=== PATIENT | male | born 1935 | race Caucasian/White ===

== ENCOUNTER → 2016-05-20 | Outpatient (CLI) | payer MEDICARE, OTHER ==
--- NOTE | 2016-05-20 15:57 | US ---
EXAMINATION TYPE: US carotid duplex BILAT DATE OF EXAM: 05/20/2016 2:42 PM COMPARISON: NONE CLINICAL HISTORY: I10 Essential Hypertension. left bruit EXAM MEASUREMENTS: RIGHT: Peak Systolic Velocity (PSV) cm/sec ----- Right CCA: 58.1 ----- Right ICA: 100.5 ----- Right ECA: 62.7 ICA/CCA ratio: 1.7 RIGHT: End Diastole cm/sec ----- Right CCA: 14.5 ----- Right ICA: 29.3 ----- Right ECA: 0 LEFT: Peak Systolic Velocity (PSV) cm/sec ----- Left CCA: 61.7 ----- Left ICA: 94.1 ----- Left ECA: 66.7 ICA/CCA ratio: 1.5 LEFT: End Diastole cm/sec ----- Left CCA: 16.3 ----- Left ICA: 22.8 ----- Left ECA: 4.0 VERTEBRALS (direction of flow): Right Vertebral: Antegrade Left Vertebral: Antegrade Moderate atherosclerotic changes in bilateral bulbs No hemodynamic stenosis IMPRESSION: Moderate atheromatous change without hemodynamically significant stenosis. Criteria for Assigning % of Stenosis / Diameter reduction (Estimation based on the indirect measurements of the internal carotid artery velocities (ICA PSV). 1. Normal (no stenosis)=ICA PSV < 125 cm/s: ratio < 2.0: ICA EDV<40 cm/s. 2. Less than 50% stenosis=ICA PSV < 125 cm/s: ratio < 2.0: ICA EDV<40 cm/s. 3. 50 to 69% stenosis=ICA PSV of 125 to 230 cm/s: ration 2.0 ? 4.0: ICA EDV 40-100 cm/s. 4. Greater than 70% stenosis to near occlusion= ICA PSV > 230 cm/s: ratio > 4.0: ICA EDV > 100 cm/s. 5. Near occlusion= ICA PSV velocities may be low or undetectable: variable ratio and ICA EDV. 6. Total occlusion=unable to detect flow.
== END | disposition home or self-care (01) ==
LOC: RADUSWWP 13:50
PROVIDERS: ATTEND Family Medicine
DX: I65.23 Occlusion and stenosis of bilateral carotid arteries (principal); I10 Essential (primary) hypertension
CPT/HCPCS: 93880

== ENCOUNTER 2016-07-26 21:13 | Observation (INO) | payer MEDICARE ==
[2016-07-26 22:07] LABS: Basophils # (A) 0.1 k/uL (0-0.2); Basophils % (A) 1 %; CHCM 33.7; Eosinophils # (A) 0.3 k/uL (0-0.7); Eosinophils % (A) 3 %; HCT 40.8 % (39.0-53.0); HDW 2.52; HGB 13.6 gm/dL (13.0-17.5); Luc # (Auto) 0.25; Luc % (Auto) 3; Lymphocytes % (A) 27 %; MCH 30.9 pg (25.0-35.0); MCHC 33.5 g/dL (31.0-37.0); MCV 92.4 fL (80.0-100.0); Mean Platelet Volume 8.3; Monocytes # (A) 0.6 k/uL (0-1.0); Monocytes % (A) 7 %; Neutrophils # (A) 4.5 k/uL (1.3-7.7); Neutrophils % (A) 59 %; RBC 4.41 m/uL (4.30-5.90); WBC 7.7 k/uL (3.8-10.6); WBC (Perox) 7.39
[2016-07-26 22:16] LABS: Prothrombin Time 10.5 sec (9.0-12.0)
[2016-07-26 22:17] LABS: Partial Thromboplastin Time 28.6 sec (22.0-30.0)
--- NOTE | 2016-07-26 22:19 | XR ---
EXAM: XR Chest, 2 Views CLINICAL HISTORY: Chest Pain TECHNIQUE: Frontal and lateral views of the chest. COMPARISON: No relevant prior studies available. FINDINGS: Lungs: Unremarkable. No consolidation. Pleural space: Unremarkable. No pneumothorax. Heart: Unremarkable. No cardiomegaly. Mediastinum: Postoperative mediastinum. Bones/joints: No acute osseous abnormality. IMPRESSION: No acute cardiopulmonary process.
[2016-07-26 22:21] LABS: ALT 23 U/L (21-72); AST 22 U/L (17-59); Alkaline Phosphatase 51 U/L (38-126); Anion Gap 11 mmol/L; Blood Urea Nitrogen 16 mg/dL (9-20); Calcium 9.5 mg/dL (8.4-10.2); Carbon Dioxide 24 mmol/L (22-30); Chloride 103 mmol/L (98-107); Glucose 102 mg/dL (74-99); Non-African American GFR(MDRD) >60 (>60 ml/min/1.73 sqM); Potassium 4.4 mmol/L (3.5-5.1); Sodium 138 mmol/L (137-145); Total Bilirubin 0.3 mg/dL (0.2-1.3); Total Protein 7.7 g/dL (6.3-8.2)
[2016-07-26 22:44] LABS: Creatine Kinase 69 U/L (55-170)
[2016-07-26 22:57] LABS: Creatine Kinase MB 1.3 ng/mL (0.0-2.4); Troponin I <0.012 ng/mL (0.000-0.034)
[2016-07-26] MEDS ORDERED: HEPARIN SODIUM,PORCINE/D5W PMX 25,000 UNIT in DEXTROSE/WATER 1 500ML.BAG IV SCH (23:45)
--- NOTE | 2016-07-26 23:52 | ED ---
Chest Pain HPI - General Chief Complaint: Chest Pain Stated Complaint: chest pain Time Seen by Provider: 07/26/16 21:36 Source: patient, family, RN notes reviewed Mode of arrival: ambulatory Limitations: no limitations - History of Present Illness Initial Comments: This is an 80-year-old male history of heart disease and states she is an episode chest pain today that lasted longer than usual and was more severe than usual. He states he has some radiation to his neck down to his chest and back up to his neck. He felt like indigestion-type discomfort 78/10 severity. He states that currently as he is pain-free but last more than 2 hours today which is out of the ordinary. He denied any fevers chills nausea vomiting. He also notes however that recently he's had episodes of fatigue after minimal stress of exercise. This is not happened before. He has no other complaints at this time no fevers chills sweats he does note however this blood pressure is line in usual also. He states he's noticed no change in his heart rate in earlier is between the 40s and 50s. He has noticed no palpitations. MD Complaint: chest pain, other - Related Data Home Medications Medication Instructions Recorded Confirmed Clopidogrel [Plavix] 75 mg PO DAILY 07/26/16 07/26/16 Metoprolol Tartrate [Lopressor] 25 mg PO DAILY 07/26/16 07/26/16 [place]-3 Fatty Acids/Fish Oil [Fish 1 cap PO DAILY 07/26/16 07/26/16 Oil 1,000 mg Capsule] Ranitidine HCl [Zantac] 150 mg PO BID 07/26/16 07/26/16 Red Yeast Rice 600 mg PO DAILY 07/26/16 07/26/16 Ubidecarenone [Co Q-10] 100 mg PO DAILY 07/26/16 07/26/16 Allergies Allergy/AdvReac Type Severity Reaction Status Date / Time Penicillins Allergy Rash/Hives Verified 07/26/16 21:58 Sulfa (Sulfonamide Allergy Rash/Hives Verified 07/26/16 21:58 Antibiotics) tetanus and diphtheria Allergy Unknown Verified 07/26/16 21:59 toxoids Review of Systems ROS Statement: Those systems with pertinent positive or pertinent negative responses have been documented in the HPI. ROS Other: All systems not noted in ROS Statement are negative. EKG Findings - EKG Results: EKG: interpreted by RUPERTO, sinus rhythm (Sinus bradycardia rate of 50. Interval 210 QRS of 80 daily since QTC of 466/[address] configuration evidence of first-degree AV block.) Past Medical History Past Medical History: GERD/Reflux, Hyperlipidemia, Hypertension History of Any Multi-Drug Resistant Organisms: None Reported Past Surgical History: Coronary Bypass/CABG, Heart Catheterization With Stent Additional Past Surgical History / Comment(s): Angioplasty Past Psychological History: No Psychological Hx Reported Smoking Status: Former smoker Past Alcohol Use History: Occasional Past Drug Use History: None Reported General Exam - General Exam Comments Initial Comments: This is a well-developed well-nourished awake alert oriented 3 male Limitations: no limitations General appearance: alert, in no apparent distress Head exam: Present: atraumatic, normocephalic, normal inspection Eye exam: Present: normal appearance, PERRL, EOMI. Absent: scleral icterus, conjunctival injection, periorbital swelling ENT exam: Present: normal exam, mucous membranes moist Neck exam: Present: normal inspection. Absent: tenderness, meningismus, lymphadenopathy Respiratory exam: Present: normal lung sounds bilaterally. Absent: respiratory distress, wheezes, rales, rhonchi, stridor Cardiovascular Exam: Present: normal rhythm, bradycardia, normal heart sounds. Absent: systolic murmur, diastolic murmur, rubs, gallop, clicks GI/Abdominal exam: Present: soft, normal bowel sounds. Absent: distended, tenderness, guarding, rebound, rigid Extremities exam: Present: normal inspection, full ROM, normal capillary refill. Absent: tenderness, pedal edema, joint swelling, calf tenderness Back exam: Present: normal inspection Neurological exam: Present: alert, oriented X3, CN II-XII intact Psychiatric exam: Present: normal affect, normal mood Skin exam: Present: warm, dry, intact, normal color. Absent: rash Course Vital Signs 07/26/16 07/26/16 07/26/16 21:19 21:35 22:35 Temperature 97.2 F L Pulse Rate 55 L 55 L 50 L Respiratory 18 20 20 Rate Blood Pressure 192/84 215/91 177/70 O2 Sat by Pulse 98 96 98 Oximetry 07/26/16 23:00 Temperature Pulse Rate 55 L Respiratory 20 Rate Blood Pressure 179/77 O2 Sat by Pulse 98 Oximetry - Reevaluation(s) Reevaluation #1: 07/26/16 23:54 Reevaluation the patient finds he has no recurrent pain. Chest Pain MDM - MDM Review the patient's x-ray imaging shows no evidence of any acute findings. I did review the lab work and findings of the patient has . Patient remains pain-free however his symptoms sound suspicious for unstable angina. Patient will be admitted for evaluation by cardiology did discuss the case with the hospitalist. Disposition Clinical Impression: Unstable angina pectoris, Atypical chest pain Disposition: ADMITTED IP TO THIS [facility] Condition: Stable Referrals: None,Stated [Primary Care Provider] - 1-2 days
[2016-07-26] MEDS ORDERED: NITROGLYCERIN SL TABS 0.4 MG TAB SUBLINGUAL PRN (23:55)
[2016-07-26] MEDS ORDERED: HEPARIN SODIUM,PORCINE 5,000 UNIT/ML 1 ML VIAL IV ONE (23:55)
[2016-07-27] MEDS: SODIUM CHLORIDE 0.9% 1,000 ML IV SCH (00:12)
[2016-07-27] MEDS: NITROGLYCERIN OINT 1 INCH/GM PACKET TOPICAL SCH ×4 (00:13→16:08)
[2016-07-27 01:05] VITALS: BMI 27.3
[2016-07-27 04:31] LABS: Creatine Kinase 53 U/L (55-170)
[2016-07-27 04:42] LABS: Creatine Kinase MB 1.1 ng/mL (0.0-2.4); Troponin I <0.012 ng/mL (0.000-0.034)
[2016-07-27 06:53] LABS: Cholesterol 173 mg/dL (<200); HDL Cholesterol 52 mg/dL (40-60); Triglycerides 137 mg/dL (<150)
[2016-07-27] MEDS ORDERED: NITROGLYCERIN SL TABS 0.4 MG TAB SUBLINGUAL PRN (07:48)
[2016-07-27] MEDS ORDERED: ALPRAZolam 0.5 MG TAB PO PRN (07:48)
[2016-07-27] MEDS ORDERED: SODIUM CHLORIDE 0.9% 1,000 ML in EMPTY BAG 1 BAG IV ONE (07:48)
[2016-07-27] MEDS ORDERED: ALPRAZolam 0.25 MG TAB PO PRN (07:48)
[2016-07-27] MEDS ORDERED: ASPIRIN 325 MG TAB PO STA (07:50)
[2016-07-27] MEDS ORDERED: ATORVASTATIN 80 MG TAB PO STA (07:51)
[2016-07-27] MEDS: METOPROLOL TARTRATE 25 MG TAB PO SCH (08:10)
[2016-07-27] MEDS: CLOPIDOGREL 75 MG TAB PO SCH (08:10)
[2016-07-27] MEDS: FAMOTIDINE 20 MG TAB PO SCH ×2 (08:10→21:56)
--- NOTE | 2016-07-27 08:12 | CONS ---
DATE OF CONSULTATION: CHIEF COMPLAINT: Chest pain. HISTORY OF PRESENT ILLNESS: This is an 80-year-old gentleman with history of coronary artery disease, status post CABG, status post angioplasty in 2012, and hypertension who came to hospital complaining of chest pain. He describes it as moderate intensity, pressure-like discomfort initially in the precordial area that radiated to the right side of his neck. Subsequently had pain that radiated to his back and to the left side of the neck. The patient has been having progressively worsening exertional fatigue over the last 2 weeks. He came to hospital and has become symptom-free. Two sets of cardiac enzymes have been negative. EKG does not reveal ischemic changes. Given the known coronary artery disease and symptoms of unstable angina. I advised the patient to undergo cardiac catheterization with a view to performing angioplasty. He had been explained of risks, benefits, and alternatives, understood and accepted. Past medical history is significant for CAD, status post CABG, status post angioplasty. Current medications include: 1. Lopressor 25 daily. 2. Plavix 75 mg daily. 3. Co-Q-10. 4. ( ). 5. Zantac. 6. Fish oil. ALLERGIC TO PENICILLIN, SULFA, AND TETANUS. FAMILY HISTORY: Negative for premature coronary artery disease. SOCIAL HISTORY: Negative for current smoking, ETOH abuse or drug abuse. REVIEW OF SYSTEMS: HEENT: Unremarkable. CARDIAC: As described above. RESPIRATORY: Negative. GI: Negative. GENITOURINARY: Negative. SKIN: Negative. MUSCULOSKELETAL: Significant pertinent for arthritis. PSYCHOSOCIAL: Negative. DERM: Negative. CONSTITUTIONAL: Negative. Oncological: Negative. The rest of the system review is not relevant. On exam he is comfortable at rest. Vital signs are stable. There is no jugular venous distention. Carotid upstroke is normal. There is no bruit. Chest exam reveals and good air entry bilaterally. Heart exam reveals first and second heart sounds. An ejection systolic murmur in the aortic area. ABDOMEN: Soft, nontender. Exam of the extremities did not reveal any edema. Peripheral pulses are felt. Cardiac enzymes have been negative. EKG does not reveal ischemic changes. ASSESSMENT: 1. Unstable angina. 2. Aortic stenosis. 3. Coronary artery disease status post coronary artery bypass graft. PLAN: Patient will undergo cardiac catheterization by Dr. Janice Rhoades today and if this is negative he will be discharged home. If not, he will undergo angioplasty.
[2016-07-27] MEDS ORDERED: ASPIRIN 325 MG TAB PO SCH (09:00)
[2016-07-27] MEDS ORDERED: NON-FORMULARY DRUG (Ubidecarenone [Co Q-10] 100 MG) PO SCH (09:00)
[2016-07-27] MEDS ORDERED: NON-FORMULARY DRUG (Red Yeast Rice [Red Yeast Rice] 600 MG) PO SCH (09:00)
[2016-07-27] MEDS ORDERED: NON-FORMULARY DRUG (Omega-3 Fatty Acids/Fish Oil [Fish Oil 1,000 Mg Capsule] 1 CAP) PO SCH (09:00)
[2016-07-27] MEDS ORDERED: MIDAZOLAM 2 MG/2 ML VIAL IVP ONE (09:17)
[2016-07-27] MEDS ORDERED: LIDOCAINE 2% INJ 20 MG/ML SQ ONE (09:22)
[2016-07-27] MEDS ORDERED: IV FLUID CONTINUATION 250 ML IV ONE (09:25)
[2016-07-27] MEDS: HYDROmorphone 2 MG/ML 1 ML SYRINGE IVP ONE ×3 (09:36→10:47)
[2016-07-27] MEDS ORDERED: BIVALIRUDIN BOLUS 250 MG/50 ML IV ONE (09:55)
[2016-07-27] MEDS ORDERED: BIVALIRUDIN 250 MG in SODIUM CHLORIDE 0.9% 35 ML IV ONE (09:55)
[2016-07-27] MEDS: NITROGLYCERIN 1000MCG/10ML SYRINGE INTRACORON ONE ×2 (10:19→10:38)
[2016-07-27] MEDS ORDERED: IOHEXOL 350 MG/ML 100 ML BOTTLE INJ ONE (10:41)
[2016-07-27] MEDS ORDERED: CLOPIDOGREL 75 MG TAB PO ONE (10:47)
[2016-07-27] MEDS ORDERED: MAG HYDROX/AL HYDROX/SIMETH 30 ML CUP PO PRN (10:57)
[2016-07-27] MEDS ORDERED: ZOLPIDEM 5 MG TAB PO PRN (10:57)
[2016-07-27] MEDS ORDERED: RX INFO: IV CONTRAST WAS GIVEN 1 EACH MISC MISCELLANE PRN (10:57)
--- NOTE | 2016-07-27 10:58 | ECHOF ---
Referral Reason:as MEASUREMENTS -------- HEIGHT: 152.4 cm WEIGHT: 105.2 kg BP: 119/56 RVIDd: 3.7 cm (< 3.3) IVSd: 1.3 cm (0.6 - 1.1) LVIDd: 5.1 cm (3.9 - 5.3) LVPWd: 1.1 cm (0.6 - 1.1) IVSs: 1.8 cm LVIDs: 3.9 cm LVPWs: 1.7 cm LA Diam: 4.2 cm (2.7 - 3.8) LAESV Index (A-L): 29.56 ml/m Ao Diam: 3.0 cm (2.0 - 3.7) AV Cusp: 0.8 cm (1.5 - 2.6) LA Diam: 5.0 cm (2.7 - 3.8) MV EXCURSION: 15.618 mm (> 18.000) MV EF SLOPE: 41 mm/s (70 - 150) EPSS: 0.8 cm AV maxP.16 mmHg AV meanP.92 mmHg RAP: 5.00 mmHg RVSP: 32.51 mmHg FINDINGS -------- Sinus rhythm. This was a technically adequate study. There is mild concentric left ventricular hypertrophy. Overall left ventricular systolic function is low-normal with, an EF between 50 - 55 %. The right ventricle is normal in size. LA is midly dilated 29-33ml/m2. The right atrial size is normal. Moderate aortic stenosis with peak/mean pressure gradient of 39.16mmHg / 22.92mmHg, the aortic valve area by continuity equation is 1.3cm. Mild mitral annular calcification present. Mild mitral regurgitation is present. Mild tricuspid regurgitation present. There is no evidence of pulmonary hypertension. The right ventricular systolic pressure, as measured by Doppler, is 32.51mmHg. Trace/mild (physiologic) pulmonic regurgitation. The aortic root size is normal. There is no pericardial effusion. CONCLUSIONS -------- 1. There is mild concentric left ventricular hypertrophy. 2. Trace/mild (physiologic) pulmonic regurgitation. 3. The aortic root size is normal. 4. There is no pericardial effusion. 5. Overall left ventricular systolic function is low-normal with, an EF between 50 - 55 %. 6. LA is midly dilated 29-33ml/m2. 7. Moderate aortic stenosis with peak/mean pressure gradient of 39.16mmHg / 22.92mmHg, the aortic valve area by continuity equation is 1.3cm. 8. Mild mitral annular calcification present. 9. Mild mitral regurgitation is present. 10. Mild tricuspid regurgitation present. 11. There is no evidence of pulmonary hypertension. 12. The right ventricular systolic pressure, as measured by Doppler, is 32.51mmHg. MEDICAL TECHNICIANS: Monika Salgado RDCS
[2016-07-27] MEDS ORDERED: SODIUM CHLORIDE 0.9% 1,000 ML IV SCH (11:00)
[2016-07-27 12:53] LABS: Creatine Kinase MB 0.8 ng/mL (0.0-2.4); Troponin I 0.028 ng/mL (0.000-0.034)
[2016-07-27 13:43] VITALS: RESP 18
[2016-07-28] MEDS: NITROGLYCERIN OINT 1 INCH/GM PACKET TOPICAL SCH ×3 (01:06→07:43)
[2016-07-28] MEDS: SODIUM CHLORIDE 0.9% 1,000 ML IV SCH ×2 (01:23→09:12)
--- NOTE | 2016-07-28 06:29 | HP ---
DATE OF ADMISSION: REASON FOR ADMISSION: Chest pain. HISTORY OF PRESENTING ILLNESS: This is an 80-year-old gentleman who has a history of CAD, underwent CABG in 1998; thereafter underwent cardiac catheterization in 2012 receiving PCI/PTCA. The patient states that he came into the hospital with complaint of chest pain. Patient states that he has epigastric pain; however, he usually notices relief with gulping some water down. Patient; however, noted to have some chest pain, midsternal in location radiating to his jaw and his back lasted for about 30 minutes, not associated with any diaphoresis. The patient denies having any alleviating or exacerbating factors. The pain was self-limiting; hence, came into the hospital for ongoing care. EKG did not reveal ST-T wave changes. The patient denies having any recent illnesses, headaches, blurry vision, nausea, vomiting, diarrhea, urinary urgency or frequency. REVIEW OF SYSTEMS: Fourteen-point review of system was done; none pertinent other than what was mentioned above. Home medications include: 1. Plavix. 2. Lopressor. 3. Fish oil. 4. Zantac. 5. Red yeast rice. 6. CoQ10. ALLERGIES: PENICILLIN, SULFA, TETANUS and DPT VACCINE. Past medical history includes CAD, GERD, dyslipidemia, hypertension. SURGICAL HISTORY: CABG and cardiac catheterization. SOCIAL HISTORY: Former smoker. Denies illicit drug use or alcohol use. FAMILY HISTORY: Not pertinent to the current admission. PHYSICAL EXAM: VITALS: Temperature 97.2, heart rate 55, respiratory rate is 18, blood pressure 215/91, saturating 95% on room air. GENERALLY: Patient appears to be alert, oriented x3. HEENT: The pupils are equal and reactive to light and accommodation. HEART: S1, S2 present. No murmur appreciated. LUNGS: Good air entry. No wheezing or rhonchi noted. ABDOMINAL EXAM: Soft, nontender, no organomegaly appreciated. GENITOURINARY: No Turcios in place. EXTREMITIES: Pulses can be palpated distally. Denies any tenderness on gross palpation. SKIN: On a gross skin exam does not appear to have any purpura or any skin rashes that were noted. NEUROLOGICALLY: Grossly cranial nerves 2-12 intact. No motor or sensory deficits noted. GROIN: Status post cardiac catheterization, appears within normal limits. Laboratory data include hemoglobin 13.6, hematocrit 40.8, white count of 7.7, platelets 158. Sodium 138, potassium 4.4, chloride 103, bicarb 24, BUN 16, creatinine of 1. Cardiac enzymes x3 peak of 0.028. ASSESSMENT AND PLAN: 1. Unstable angina. 2. Dyslipidemia. 3. Previous tobacco use. 4. Hypertension. PLAN: Echo was reviewed. Patient underwent a cardiac catheterization. Vascular checks as recommended. Dual antiplatelet therapy. Atorvastatin will be started. Metoprolol 25 mg p.o. daily will be initiated. Continue IV fluids at 75 mL for renal protection. Will await cardiology recommendations regarding disposition.
[2016-07-28 06:52] LABS: Basophils % (A) 1 %; CH 30.7; CHCM 33.3; Eosinophils # (A) 0.2 k/uL (0-0.7); Eosinophils % (A) 3 %; HCT 40.9 % (39.0-53.0); HDW 2.49; HGB 13.5 gm/dL (13.0-17.5); Luc # (Auto) 0.17; Luc % (Auto) 2; Lymphocytes % (A) 25 %; MCH 30.5 pg (25.0-35.0); MCHC 32.9 g/dL (31.0-37.0); MCV 92.7 fL (80.0-100.0); Mean Platelet Volume 8.1; Monocytes # (A) 0.4 k/uL (0-1.0); Monocytes % (A) 5 %; Neutrophils % (A) 64 %; RBC 4.42 m/uL (4.30-5.90); RDW 13.9 % (11.5-15.5); WBC 7.9 k/uL (3.8-10.6); WBC (Perox) 7.78
[2016-07-28 07:10] LABS: Anion Gap 11 mmol/L; Blood Urea Nitrogen 13 mg/dL (9-20); Calcium 9.7 mg/dL (8.4-10.2); Carbon Dioxide 22 mmol/L (22-30); Chloride 104 mmol/L (98-107); Glucose 107 mg/dL (74-99); Non-African American GFR(MDRD) >60 (>60 ml/min/1.73 sqM); Potassium 4.8 mmol/L (3.5-5.1); Sodium 137 mmol/L (137-145)
[2016-07-28] MEDS ORDERED: ATORVASTATIN 10 MG TAB PO SCH (09:00)
[2016-07-28] MEDS ORDERED: ATORVASTATIN 40 MG TAB PO SCH (09:00)
[2016-07-28] MEDS ORDERED: ASPIRIN 81 MG CHEW PO SCH (09:00)
[2016-07-28] MEDS: FAMOTIDINE 20 MG TAB PO SCH (09:12)
[2016-07-28] MEDS: CLOPIDOGREL 75 MG TAB PO SCH (09:12)
[2016-07-28] MEDS: METOPROLOL TARTRATE 25 MG TAB PO SCH (09:12)
--- NOTE | 2016-07-28 11:33 | P.PN ---
Subjective Principal diagnosis: Chest pain This is an 80-year-old gentleman with known history of coronary artery disease and prior bypass surgery, prior PCI, hypertension, hyperlipidemia , who presented to the hospital with symptoms of chest discomfort. He was seen in consultation by Dr. Kilgore and recommended to undergo cardiac catheterization. Cardiac catheterization with subsequent stenting to the OM was performed yesterday. Patient was seen and examined this morning, denies any chest pain or difficulty in breathing. EKG from this morning shows a normal sinus rhythm with no changes from post-PCI. CBC reviewed, hemoglobin 13.5, platelet count 171. Potassium 4.8, BUN 13, creatinine 1.0. Objective - Vital Signs Vital signs: Vital Signs Temp 98.7 F 07/28/16 09:15 Pulse 62 07/28/16 09:15 Resp 18 07/28/16 09:15 BP 114/58 07/28/16 09:15 Pulse Ox 92 L 07/28/16 09:15 Intake & Output 07/27/16 07/28/16 07/28/16 18:59 06:59 18:59 Intake Total 440 225 180 Balance 440 225 180 Weight 86.5 kg Intake: IV 185 225 Sodium Chloride 0.9% 1, 225 000 ml @ 75 mls/hr IV . [id number] [facility] Rx#:[id number] Intake, IV Titration 75 Amount Sodium Chloride 0.9% 1, 75 000 ml @ 75 mls/hr IV . [id number] [facility] Rx#:[id number] Oral 180 180 Other: Voiding Method Toilet Toilet Toilet # Voids 2 - Exam PHYSICAL EXAMINATION: HEENT: Head is atraumatic, normocephalic. Pupils equal, round. Neck is supple. There is no elevated jugular venous pressure. HEART EXAMINATION: Heart S1 and S2 systolic murmur is heard. CHEST EXAMINATION: Lungs are clear to auscultation and precussion. No chest wall tenderness is noted on palpation or with deep breathing. ABDOMEN: Soft, nontender. Bowel sounds are heard. No organomegaly noted. Right groin soft, no hematoma. EXTREMITIES: 2+ peripheral pulses with no evidence of peripheral edema and no calf tenderness noted. NEUROLOGIC patient is awake, alert and oriented -3. . - Labs CBC & Chem 7: 07/28/16 05:55 07/28/16 05:55 Labs: Abnormal Lab Results - Last 24 Hours (Table) 07/27/16 07/28/16 Range/Units 11:46 05:55 Glucose 107 H (74-99) mg/dL Total Creatine Kinase 48 L (55-170) U/L Assessment and Plan (1) Stented coronary artery Narrative/Plan: Stent placement to the OM Status: Acute (2) HTN (hypertension) Status: Acute (3) Hyperlipemia Status: Acute (4) CAD (coronary artery disease) Status: Acute (5) Hx of CABG Status: Acute (6) Unstable angina pectoris Status: Acute Plan: From cardiology's perspective, patient may be able to be discharged home today. Follow-up appointment with Dr. Alejandro Rhoades in the office on the eighth of this month at 8:15. Discharge medications include aspirin 81 mg daily, Lipitor 40 mg daily, Plavix 75 mg daily, metoprolol tartrate 25 mg daily, sublingual nitroglycerin as needed for chest pain. Patient has been provided prescriptions for the above medications and he is aware of his follow-up appointment. DNP note has been reviewed, I agree with a documented findings and plan of care. Patient was seen and examined.
[2016-07-28 12:01] VITALS: BP 123/88; PULSE 60; TEMP 96.6
--- NOTE | 2016-07-28 18:51 | P.DS ---
Providers Date of admission: 07/26/16 23:56 Attending physician: Lester Castañeda Consults: 07/26/16 23:56 Consult Physician Urgent Consulting Provider: Kaitlyn Peña Consult Reason/Comments: Unstable angina Do you want consulting provider notified?: Yes, Notify in am 07/27/16 10:57 Consult Physician Routine Consulting Provider: [facility] Consult Reason/Comments: Post Interventional patient Do you want consulting provider notified?: Already Contacted Primary care physician: Stated None Hospital Course: This is an 80-year-old gentleman who has a history of CAD, underwent CABG in 1998; thereafter underwent cardiac catheterization in 2011 receiving PCI/PTCA. The patient states that he came into the hospital with complaint of chest pain. Patient states that he has epigastric pain; however, he usually notices relief with gulping some water down. Patient; however, noted to have some chest pain, midsternal in location radiating to his jaw and his back lasted for about 30 minutes, not associated with any diaphoresis. The patient denies having any alleviating or exacerbating factors. The pain was self-limiting; hence, came into the hospital for ongoing care. EKG did not reveal ST-T wave changes. The patient denies having any recent illnesses, headaches, blurry vision, nausea, vomiting, diarrhea, urinary urgency or frequency. 07/28/16 doing well no recurrent symptoms on ambulation PHYSICAL EXAM: GENERALLY: Patient appears to be alert, oriented x3. HEENT: The pupils are equal and reactive to light and accommodation. HEART: S1, S2 present. No murmur appreciated. LUNGS: Good air entry. No wheezing or rhonchi noted. ABDOMINAL EXAM: Soft, nontender, no organomegaly appreciated. GENITOURINARY: No Turcios in place. EXTREMITIES: Pulses can be palpated distally. Denies any tenderness on gross palpation. SKIN: On a gross skin exam does not appear to have any purpura or any skin rashes that were noted. NEUROLOGICALLY: Grossly cranial nerves 2-12 intact. No motor or sensory deficits noted. GROIN: Status post cardiac catheterization, appears within normal limits. ASSESSMENT AND PLAN: 1. Unstable angina. 2. Dyslipidemia. 3. Previous tobacco use. 4. Hypertension. s/p PTCA to the OM-1 DAPT, STATIN in form of red yeast rice due to intolerance to conventional statins B ty follow up with Dr FLORI PEÑA Patient Condition at Discharge: Stable Plan - Discharge Summary New Discharge Prescriptions: New RX: Nitroglycerin Sl Tabs [Nitrostat] 0.4 mg SUBLINGUAL Q5M PRN #25 tab PRN Reason: Chest Pain RX: Aspirin 81 mg PO DAILY #30 RX: Atorvastatin [Lipitor] 40 mg PO DAILY #30 tab Continue RX: Ubidecarenone [Co Q-10] 100 mg PO DAILY RX: Red Yeast Rice 600 mg PO DAILY RX: Ranitidine HCl [Zantac] 150 mg PO BID RX: Metoprolol Tartrate [Lopressor] 25 mg PO DAILY RX: Clopidogrel [Plavix] 75 mg PO DAILY RX: [place]-3 Fatty Acids/Fish Oil [Fish Oil 1,000 mg Capsule] 1 cap PO DAILY Discharge Medication List RX: Clopidogrel [Plavix] 75 mg PO DAILY 07/26/16 [History] RX: Metoprolol Tartrate [Lopressor] 25 mg PO DAILY 07/26/16 [History] RX: [place]-3 Fatty Acids/Fish Oil [Fish Oil 1,000 mg Capsule] 1 cap PO DAILY 06/08 [History] RX: Ranitidine HCl [Zantac] 150 mg PO BID 07/26/16 [History] RX: Red Yeast Rice 600 mg PO DAILY 07/26/16 [History] RX: Ubidecarenone [Co Q-10] 100 mg PO DAILY 07/26/16 [History] RX: Aspirin 81 mg PO DAILY #30 07/28/16 [Rx] RX: Atorvastatin [Lipitor] 40 mg PO DAILY #30 tab 07/28/16 [Rx] RX: Nitroglycerin Sl Tabs [Nitrostat] 0.4 mg SUBLINGUAL Q5M PRN #25 tab [Rx] Follow up Appointment(s)/Referral(s): Kaitlyn Peña MD [STAFF PHYSICIAN] - 07/30/16 8:15 am None,Stated [Primary Care Provider] - 1-2 days (please make a follow up appointment with primary care provider) Patient Instructions/Handouts: *Surgery [facility] - After Heart Catheterization - [employer] Instructions Discharge Disposition: HOME SELF-CARE
--- NOTE | 2016-07-29 10:15 | CC ---
DATE OF SERVICE: 07/27/2016 PROCEDURE: Left heart catheterization, coronary angiography and selective injection of PEARSON graft. PERFORMED BY: muriel Rhoades MD CLINICAL INFORMATION: Mr. Shubham Landa is an elderly 80-year-old gentleman with a known history of aortocoronary bypass surgery in 1995 with a PEARSON and two vein grafts to the diagonal and obtuse marginal. His right coronary was not grafted. Over the years, both vein grafts are occluded. PEARSON to LAD was patent. I performed stenting of the ostium of the circumflex, which was supplying the obtuse marginal, which graft was occluded. This procedure was performed 5 years ago. He presented to the hospital with symptoms strongly suggestive and stable angina and was advised cardiac catheterization. I discussed with him the rationale, risks, benefits, options and proceeded to perform the procedure. PROCEDURE NOTE: Under local anesthesia and strict aseptic precautions, a 6 Singaporean introducer was placed in the right femoral artery. Because of extreme tortuosity and a lot of scar tissue, I had considerable difficulty, but I placed a long 25 cm 6 Singaporean sheath. Using a standard JL4 catheter, I performed selective coronary angiography of the left system. Using a Tae catheter, I performed selective coronary angiography of the right coronary artery as well as the mammary graft and checked LV pressures but did not perform LV gram. CORONARY ANGIOGRAPHY FINDINGS: LEFT MAIN CORONARY ARTERY: This is a long vessel, free of significant disease and bifurcates into LAD and circumflex. There is mild calcification noted. LEFT ANTERIOR DESCENDING CORONARY ARTERY: This vessel is smaller in caliber and has diffuse disease, some narrowing of the ostium and the vessel continues only of the diagonal branch. The LAD appears to be totally occluded and is already bypassed with PEARSON. LEFT POSTERIOR CIRCUMFLEX CORONARY ARTERY: This vessel was previously bypassed and there is tenting of the first obtuse marginal, but the graft has since then been occluded. In 2011 I performed stenting of the ostium of the circumflex and also the proximal portion of the obtuse mild branch and the stented segment is patent, but beyond the stented segment there is a 95% stenosis noted. The second obtuse marginal is small, diffusely diseased, and continuation of the circumflex in the AV groove has diffuse disease in the midportion and this is pretty much unchanged. The significant progression of disease noted is in the obtuse marginal branch of circumflex. RIGHT CORONARY ARTERY: This is a dominant vessel, has about a 40% to 50% mid lesion. Distally bifurcates into PDA and PLV, both of which supply a fair amount of myocardium. There is diffuse disease in the dominant RCA, but the midportion of RCA in caudal projection shows about a 40% to 45% lesion. The lesion does not appear to be critical. LEFT INTERNAL MAMMARY ARTERY GRAFT TO LAD: This graft is widely patent at its origin, course, insertion site and opacified LAD. Has minor diffuse irregularities and supplies a fair amount of myocardium but distal LAD is diffusely diseased. LEFT VENTRICULOGRAM: This was not performed. LV pressures revealed end-diastolic pressure of about 18 to 20 mmHg. FINAL IMPRESSION: This patient has progression of disease with a significant 90% to 95% stenosis involving the obtuse mild branch. The ostium of the circumflex and proximal circumflex that was stented is patent. His RCA has moderate disease, represents some progression of disease, but no critical lesions. Two vein grafts are occluded, not cannulized at this time. His LAD is small in caliber, diffusely diseased, and continues as a diagonal branch. RCA has noncritical but moderate disease, dominant vessel. RECOMMENDATIONS: I recommend intervention of the obtuse minor and proceeded to perform this in the same setting. PROCEDURE: PTCA and stenting of obtuse marginal branch of circumflex. Performed by the torsten. Clinical information: Transfer the same. Clinical information: And then. Following coronary angiography and intervention of the circumflex marginal proceeded to perform this in the same setting. I used a standard JR JL4 guide, but it was somewhat difficult switched over to a JL 3.5 caliber, 3.5 curved guide catheter. Were widely was used to cross the lesion. Wire was kept distally. I used NC trek balloon of 2.5 caliber, 8 mm length predilated this lesion. He could not advance the Promus 2.25 caliber, 12 mm stent. I then used another BMW wire and using this as a trenton wire I kept this in the first obtuse marginal distally and use. I gave Angiomax bolus and infusion as per protocol. I used a Xience 2.5 caliber, 8 mm stent and advance the stent positioned at the site and positioned at the site of 95% lesion stenosis with excellent angiographic result. I noted that the proximal to the stented segment also there was area of haziness and I addressed this with another 2.5 caliber, 8 mm long NC trek balloon. I used a trenton wire system, with 2 wires I was able to get had was able to advance the stent. After deploying 2 stents excellent angiographic result was achieved. The sheath was then taken out and Angio-Seal device used to secure hemostasis and patient was sent to the room in stable condition. He received Plavix 150 mg p.o. 80. He was already on Plavix. Excellent angiographic result without complication was achieved. Patient had a moderate conscious sedation of about a one-hour one hour 15 minutes artery. Conscious sedation was provided with a combination of Versed and Benadryl and they'll guarded. Oxygen saturation was monitored closely. Excellent angiographic result without complication was achieved. I think who is admitted to an safely consented to
--- NOTE | 2016-07-29 10:22 | PTCA ---
DATE OF SERVICE: 07/27/2016 PROCEDURE: PTCA and stenting of obtuse marginal branch of circumflex. PERFORMED BY: Janice Rhoades MD. CLINICAL INFORMATION: Mr. Shubham Landa is an elderly 80-year-old gentleman with a known history of aortocoronary bypass surgery in 1995 with a PEARSON and two vein grafts to the diagonal and obtuse marginal. His right coronary was not grafted. Over the years, both vein grafts are occluded. PEARSON to LAD was patent. I performed stenting of the ostium of the circumflex, which was supplying the obtuse marginal, which graft was occluded. This procedure was performed 5 years ago. He presented to the hospital with symptoms strongly suggestive and stable angina and was advised cardiac catheterization. I discussed with him the rationale, risks, benefits, options and proceeded to perform the procedure. Following coronary angiography, I recommended intervention of the circumflex marginal and proceeded to perform this in the same setting. I used a standard JL4 guide, but it was somewhat difficult, switched over to a JL 3.5 curved guide catheter. A Whisper wire was used to cross the lesion. Wire was kept distally. I used NC trek balloon of 2.5 caliber, 8 mm length, and predilated this lesion. I could not advance the Promus 2.25 caliber, 12 mm stent. I then used another BMW wire and using this as a trenton wire I kept this in the first obtuse marginal distally. I gave Angiomax bolus and infusion as per protocol. I used a Xience 2.25 caliber, 8 mm stent and advanced this and positioned it at the site of 95% lesion stenosis with excellent angiographic result. I noted that in the proximal stented segment also there was an area of haziness and I addressed this with another 2.5 caliber, 8 mm long NC trek balloon. I used a trenton wire system, and with 2 wires I was able to advance the stents. After deploying 2 stents, excellent angiographic result was achieved. The sheath was then taken out and Angio-Seal device used to secure hemostasis and patient was sent to the room in stable condition. He received Plavix 150 mg p.o. He was already on Plavix. Excellent angiographic result without complication was achieved. Patient had a moderate conscious sedation of about a one hour and 15 minutes. Conscious sedation was provided with a combination of Versed and Benadryl and Dilaudid. Oxygen saturation was monitored closely. Excellent angiographic result without complication was achieved.
== END 2016-07-28 13:11 | disposition home or self-care (01) ==
LOC: EC 21:13 → 3OBS 23:56 → 6SEL 07-27 10:20
PROVIDERS: ADMIT Internal Medicine; ATTEND Internal Medicine
DX: I25.110 Atherosclerotic heart disease of native coronary artery with unstable angina pectoris (principal); T82.855A Stenosis of coronary artery stent, initial encounter; I35.0 Nonrheumatic aortic (valve) stenosis; I10 Essential (primary) hypertension; E78.5 Hyperlipidemia, unspecified; K21.9 Gastro-esophageal reflux disease without esophagitis; Z79.02 Long term (current) use of antithrombotics/antiplatelets; Z79.899 Other long term (current) drug therapy; Z88.0 Allergy status to penicillin; Z88.2 Allergy status to sulfonamides; Z88.7 Allergy status to serum and vaccine; Z87.891 Personal history of nicotine dependence
CPT/HCPCS: 99285 ×2; 99152; 99153 ×4; 96376 ×2; 96365; 96366; 93005 ×3; 36415; 93306; 93459; 80061; 80053; 80048; 82550 ×2; 82553 ×2; 83735; 84484 ×2; 85025 ×2; 85610; 85730 ×2; 71020; G0378 ×4; C9600; C1769 ×4; C1760; C1887 ×2; C1725 ×2; C1894 ×2; C1874; J2001; J2250; J1170; J1644 ×2; Q9967; J0583

== ENCOUNTER → 2017-07-06 | Outpatient (CLI) | payer MEDICARE | END | disposition home or self-care (01) | LOC: RADECHMAIN 12:38 | PROVIDERS: ATTEND Internal Medicine | DX: I95.9 Hypotension, unspecified (principal); I49.3 Ventricular premature depolarization | CPT/HCPCS: 93270; 93271 ==

== ENCOUNTER 2017-09-06 14:43 | Emergency (ER) | payer MEDICARE ==
[2017-09-06] MEDS ORDERED: SODIUM CHLORIDE 0.9% 1,000 ML IV STA (15:10)
--- NOTE | 2017-09-06 15:16 | ED ---
General Adult HPI - General Chief complaint: Neuro Symptoms/Deficit Stated complaint: Weakness Time Seen by Provider: 09/06/17 14:44 Source: patient, RN notes reviewed, old records reviewed Mode of arrival: wheelchair Limitations: no limitations - History of Present Illness Initial comments: This is an 81-year-old male the ER for evaluation. This patient presents for evaluation regarding possible CVA or TIA. Patient states he's having states he' s having wheeze cause a TIA. He something is had before. Patient denies any neurological complaint currently. States he does have history of heart disease as of history of stent, no prior history of stroke with recurrent deficit - Related Data Home Medications Medication Instructions Recorded Confirmed [place]-3 Fatty Acids/Fish Oil [Fish 1 cap PO DAILY 07/26/16 09/06/17 Oil 1,000 mg Capsule] Ranitidine HCl [Zantac] 150 mg PO QAM 07/26/16 09/06/17 Ubidecarenone [Co Q-10] 100 mg PO DAILY 07/26/16 09/06/17 Apixaban [Eliquis] 5 mg PO BID 09/06/17 09/06/17 Losartan [Cozaar] 50 mg PO DAILY 09/06/17 09/06/17 Pantoprazole [Protonix] 40 mg PO HS 09/06/17 09/06/17 Rosuvastatin Calcium [Crestor] 5 mg PO Q48H 09/06/17 09/06/17 Previous Rx's Medication Instructions Recorded Aspirin 81 mg PO DAILY #30 07/28/16 Allergies Allergy/AdvReac Type Severity Reaction Status Date / Time Penicillins Allergy Rash/Hives Verified 09/06/17 15:37 Sulfa (Sulfonamide Allergy Rash/Hives Verified 09/06/17 15:37 Antibiotics) tetanus and diphtheria Allergy Unknown Verified 09/06/17 15:37 toxoids Review of Systems ROS Statement: Those systems with pertinent positive or pertinent negative responses have been documented in the HPI. ROS Other: All systems not noted in ROS Statement are negative. Past Medical History Past Medical History: Coronary Artery Disease (CAD), GERD/Reflux, Hyperlipidemia , Hypertension, Memory Impairment, Osteoarthritis (OA), Pneumonia Additional Past Medical History / Comment(s): prostate CA-radiation (in remission since 2006.) History of Any Multi-Drug Resistant Organisms: None Reported Past Surgical History: Coronary Bypass/CABG, Heart Catheterization With Stent Additional Past Surgical History / Comment(s): Angioplasty Past Anesthesia/Blood Transfusion Reactions: No Reported Reaction Date of Last Stent Placement:: 2011 Past Psychological History: No Psychological Hx Reported Smoking Status: Former smoker Past Alcohol Use History: Occasional Past Drug Use History: None Reported - Past Family History Brother(s) Family Medical History: Coronary Artery Disease (CAD), Prostate Disorder Sister(s) Family Medical History: Coronary Artery Disease (CAD) Father Family Medical History: Congestive Heart Failure (CHF) Mother Family Medical History: Congestive Heart Failure (CHF) General Exam - General Exam Comments Initial Comments: NIH of 0 Limitations: no limitations General appearance: alert, in no apparent distress Head exam: Present: atraumatic, normocephalic, normal inspection Eye exam: Present: normal appearance, PERRL, EOMI. Absent: scleral icterus, conjunctival injection, periorbital swelling ENT exam: Present: normal exam, mucous membranes moist Neck exam: Present: normal inspection. Absent: tenderness, meningismus, lymphadenopathy Respiratory exam: Present: normal lung sounds bilaterally. Absent: respiratory distress, wheezes, rales, rhonchi, stridor Cardiovascular Exam: Present: regular rate, normal rhythm, normal heart sounds. Absent: systolic murmur, diastolic murmur, rubs, gallop, clicks GI/Abdominal exam: Present: soft, normal bowel sounds. Absent: distended, tenderness, guarding, rebound, rigid Extremities exam: Present: normal inspection, full ROM, normal capillary refill. Absent: tenderness, pedal edema, joint swelling, calf tenderness Back exam: Present: normal inspection Neurological exam: Present: alert, oriented X3, CN II-XII intact Psychiatric exam: Present: normal affect, normal mood Skin exam: Present: warm, dry, intact, normal color. 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 Patient will be discharged to follow-up with cardiology, neurology regarding findings of CT - Lab Data Result diagrams: 09/06/17 15:29 09/06/17 15:29 Lab Results 09/06/17 09/06/17 09/06/17 Range/Units 15:17 15:29 15:29 WBC 5.7 (3.8-10.6) k/uL RBC 4.55 (4.30-5.90) m/uL Hgb 13.5 (13.0-17.5) gm/dL Hct 40.0 (39.0-53.0) % MCV 87.9 (80.0-100.0) fL MCH 29.7 (25.0-35.0) pg MCHC 33.8 (31.0-37.0) g/dL RDW 14.0 (11.5-15.5) % Plt Count 177 (150-450) k/uL Neutrophils % 58 % Lymphocytes % 28 % Monocytes % 7 % Eosinophils % 3 % Basophils % 1 % Neutrophils # 3.3 (1.3-7.7) k/uL Lymphocytes # 1.6 (1.0-4.8) k/uL Monocytes # 0.4 (0-1.0) k/uL Eosinophils # 0.2 (0-0.7) k/uL Basophils # 0.0 (0-0.2) k/uL PT (9.0-12.0) sec INR (<1.2) APTT (22.0-30.0) sec Sodium (137-145) mmol/L Potassium (3.5-5.1) mmol/L Chloride (98-107) mmol/L Carbon Dioxide (22-30) mmol/L Anion Gap mmol/L BUN (9-20) mg/dL Creatinine (0.66-1.25) mg/dL Est GFR (CKD-EPI)AfAm (>60 ml/min/1.73 sqM) Est GFR (CKD-EPI)NonAf (>60 ml/min/1.73 sqM) Glucose (74-99) mg/dL POC Glucose (mg/dL) 125 H (75-99) mg/dL POC Glu Color Blender [address] Calcium (8.4-10.2) mg/dL Total Bilirubin (0.2-1.3) mg/dL AST (17-59) U/L ALT (21-72) U/L Alkaline Phosphatase (38-126) U/L Total Creatine Kinase 69 (55-170) U/L CK-MB (CK-2) 0.9 (0.0-2.4) ng/mL CK-MB (CK-2) Rel Index 1.3 Troponin I <0.012 (0.000-0.034) ng/mL Total Protein (6.3-8.2) g/dL Albumin (3.5-5.0) g/dL 09/06/17 09/06/17 Range/Units 15:29 15:29 WBC (3.8-10.6) k/uL RBC (4.30-5.90) m/uL Hgb (13.0-17.5) gm/dL Hct (39.0-53.0) % MCV (80.0-100.0) fL MCH (25.0-35.0) pg MCHC (31.0-37.0) g/dL RDW (11.5-15.5) % Plt Count (150-450) k/uL Neutrophils % % Lymphocytes % % Monocytes % % Eosinophils % % Basophils % % Neutrophils # (1.3-7.7) k/uL Lymphocytes # (1.0-4.8) k/uL Monocytes # (0-1.0) k/uL Eosinophils # (0-0.7) k/uL Basophils # (0-0.2) k/uL PT 10.6 (9.0-12.0) sec INR 1.1 (<1.2) APTT 30.1 H (22.0-30.0) sec Sodium 138 (137-145) mmol/L Potassium 4.3 (3.5-5.1) mmol/L Chloride 104 (98-107) mmol/L Carbon Dioxide 25 (22-30) mmol/L Anion Gap 9 mmol/L BUN 16 (9-20) mg/dL Creatinine 0.90 (0.66-1.25) mg/dL Est GFR (CKD-EPI)AfAm >90 (>60 ml/min/1.73 sqM) Est GFR (CKD-EPI)NonAf 79 (>60 ml/min/1.73 sqM) Glucose 127 H (74-99) mg/dL POC Glucose (mg/dL) (75-99) mg/dL POC Glu Color Blender [place] Calcium 9.3 (8.4-10.2) mg/dL Total Bilirubin 0.2 (0.2-1.3) mg/dL AST 22 (17-59) U/L ALT 25 (21-72) U/L Alkaline Phosphatase 46 (38-126) U/L Total Creatine Kinase (55-170) U/L CK-MB (CK-2) (0.0-2.4) ng/mL CK-MB (CK-2) Rel Index Troponin I (0.000-0.034) ng/mL Total Protein 7.1 (6.3-8.2) g/dL Albumin 4.0 (3.5-5.0) g/dL - Radiology Data Radiology results: report reviewed (CT brain CT head and neck shows positive carotid artery disease, positive leuk rule out infarct), image reviewed Disposition Clinical Impression: Transient cerebral ischemia Disposition: HOME SELF-CARE Condition: Good Instructions: Transient Ischemic Attack (ED) Is patient prescribed a controlled substance at d/c from ED?: No Referrals: Yordan Bhakta MD [Primary Care Provider] - 1-2 days
[2017-09-06 15:19] LABS: Glucose,Whole Blood 125 mg/dL (75-99)
[2017-09-06 15:45] LABS: Basophils % (A) 1 %; Eosinophils # (A) 0.2 k/uL (0-0.7); Eosinophils % (A) 3 %; HGB 13.5 gm/dL (13.0-17.5); Lymphocytes # (A) 1.6 k/uL (1.0-4.8); Lymphocytes % (A) 28 %; MCH 29.7 pg (25.0-35.0); MCHC 33.8 g/dL (31.0-37.0); MCV 87.9 fL (80.0-100.0); Mean Platelet Volume 8.2; Monocytes # (A) 0.4 k/uL (0-1.0); Monocytes % (A) 7 %; Neutrophils # (A) 3.3 k/uL (1.3-7.7); Neutrophils % (A) 58 %; Platelet Count 177 k/uL (150-450); RBC 4.55 m/uL (4.30-5.90); WBC 5.7 k/uL (3.8-10.6)
[2017-09-06 15:48] VITALS: RESP 16
[2017-09-06 15:55] LABS: INR 1.1 (<1.2); Partial Thromboplastin Time 30.1 sec (22.0-30.0); Prothrombin Time 10.6 sec (9.0-12.0)
[2017-09-06 15:58] LABS: ALT 25 U/L (21-72); AST 22 U/L (17-59); Alkaline Phosphatase 46 U/L (38-126); Anion Gap 9 mmol/L; Blood Urea Nitrogen 16 mg/dL (9-20); Calcium 9.3 mg/dL (8.4-10.2); Carbon Dioxide 25 mmol/L (22-30); Chloride 104 mmol/L (98-107); Glucose 127 mg/dL (74-99); Potassium 4.3 mmol/L (3.5-5.1); Sodium 138 mmol/L (137-145); Total Bilirubin 0.2 mg/dL (0.2-1.3); Total Protein 7.1 g/dL (6.3-8.2)
[2017-09-06 16:00] LABS: Creatine Kinase 69 U/L (55-170)
[2017-09-06 16:13] LABS: Creatine Kinase MB 0.9 ng/mL (0.0-2.4); Troponin I <0.012 ng/mL (0.000-0.034)
--- NOTE | 2017-09-06 17:00 | CT ---
EXAMINATION TYPE: CT brain wo con for TPA DATE OF EXAM: 09/06/2017 COMPARISON: None HISTORY: TIA CT DLP: 1054.2 mGycm Automated exposure control for dose reduction was used. FINDINGS: There is cerebral cortical atrophy. There is no mass effect nor midline shift. There is no sign of in tracranial hemorrhage. There is 1 cm area of slight decreased density in the anterior left internal c apsule. Calvarium is intact. IMPRESSION: CEREBRAL ATROPHY. SMALL LACUNAR INFARCT LEFT INTERNAL CAPSULE. NO HEMORRHAGE.
--- NOTE | 2017-09-06 17:37 | CT ---
EXAMINATION TYPE: CT angio head neck DATE OF EXAM: 09/06/2017 HISTORY: TIA COMPARISON: CT DLP: 342.1 mGycm. Automated Exposure Control for Dose Reduction was Utilized. TECHNIQUE: CTA scan of the neck and brain is performed with IV Contrast, patient injected with 65 mL of Isovue 370, axial images are obtained, coronal and sagittal reformatted images are reviewed. Thre e-D reconstructed images are created on an independent workstation and reviewed. FINDINGS: There is normal branching pattern of the great vessels on the aortic arch. There is arterial flow in both vertebral arteries which are fairly symmetric. There is arterial flow in the common internal and external carotid arteries bilaterally. There is approximately 50% stenosis of the origin of the righ t internal carotid artery at its origin due to plaque formation. There is approximate 75% stenosis of the origin of the left internal carotid artery due to plaque formation and calcification. There is arterial flow in the vertebrobasilar artery system. There is arterial flow in the anterior m iddle and posterior cerebral arteries. There is no evidence of aneurysm or neovascularity. There is n ormal contrast opacification of the venous sinuses. There is no mass effect. I see no evidence of chance nosis. IMPRESSION: Approximate 50% stenosis at the origin right internal carotid artery. 75% stenosis origin left sport internship al carotid artery. No significant intracranial abnormality.
[2017-09-06 18:01] VITALS: BP 178/79; PULSE 70; TEMP 98.7
== END 2017-09-06 18:15 | disposition home or self-care (01) ==
LOC: EC 14:43
DX: G45.9 Transient cerebral ischemic attack, unspecified (principal); R29.700 NIHSS score 0; I77.89 Other specified disorders of arteries and arterioles; R06.2 Wheezing; E78.5 Hyperlipidemia, unspecified; I10 Essential (primary) hypertension; I25.10 Atherosclerotic heart disease of native coronary artery without angina pectoris; K21.9 Gastro-esophageal reflux disease without esophagitis; Z87.891 Personal history of nicotine dependence; Z79.01 Long term (current) use of anticoagulants; Z79.899 Other long term (current) drug therapy; Z88.0 Allergy status to penicillin; Z88.2 Allergy status to sulfonamides; Z88.7 Allergy status to serum and vaccine; Z85.46 Personal history of malignant neoplasm of prostate; Z92.21 Personal history of antineoplastic chemotherapy; Z95.1 Presence of aortocoronary bypass graft; Z98.61 Coronary angioplasty status; Z82.49 Family history of ischemic heart disease and other diseases of the circulatory system
CPT/HCPCS: 36415; 93005; 80053; 82550; 82553; 84484; 85025; 85610; 85730; 70496; 70450; 70498; 99285; 96360; Q9967

== ENCOUNTER 2018-05-03 16:30 | Observation (INO) | payer MEDICARE ==
--- NOTE | 2018-05-03 16:56 | ED ---
General Adult HPI - General Chief complaint: Chest Pain Stated complaint: Chest tighness Time Seen by Provider: 05/03/18 16:42 Source: patient, RN notes reviewed, old records reviewed Mode of arrival: wheelchair Limitations: no limitations - History of Present Illness Initial comments: 82-year-old male presents from primary care office for evaluation of chest tightness over the past one week. Patient states he's had generalized weakness and fatigue as well as chest tightness. Patient states the tightness comes after an episode of exertion, does not report any pain complaints with exertion. He does have history of CAD status post coronary artery bypass grafting in 1995. History of hypertension currently on antihypertensive medications. No di abetes, nonsmoker, otherwise healthy. Denies diaphoresis, denies vomiting, denies abdominal pain. Denies fever or chills. Denies diarrhea. Denies lower extremity pain or swelling. Denies any radiating component to his chest tightness. He has had cough which is productive of clear sputum. - Related Data Home Medications Medication Instructions Recorded Confirmed [place]-3 Fatty Acids/Fish Oil [Fish 1 cap PO DAILY 07/26/16 05/03/18 Oil 1,000 mg Capsule] Ubidecarenone [Co Q-10] 200 mg PO DAILY 07/26/16 05/03/18 Apixaban [Eliquis] 5 mg PO BID 09/06/17 05/03/18 Losartan [Cozaar] 50 mg PO DAILY 09/06/17 05/03/18 Pantoprazole [Protonix] 40 mg PO HS 09/06/17 05/03/18 Rosuvastatin Calcium [Crestor] 5 mg PO Q48H 09/06/17 05/03/18 Allergies Allergy/AdvReac Type Severity Reaction Status Date / Time Penicillins Allergy Rash/Hives Verified 05/03/18 16:53 Sulfa (Sulfonamide Allergy Rash/Hives Verified 05/03/18 16:53 Antibiotics) tetanus and diphtheria Allergy Unknown Verified 05/03/18 16:53 toxoids Review of Systems ROS Statement: Those systems with pertinent positive or pertinent negative responses have been documented in the HPI. ROS Other: All systems not noted in ROS Statement are negative. Past Medical History Past Medical History: Coronary Artery Disease (CAD), GERD/Reflux, Hyperlipidemia, Hypertension, Memory Impairment, Osteoarthritis (OA), Pneumonia Additional Past Medical History / Comment(s): prostate CA-radiation (in remission since 2006.) History of Any Multi-Drug Resistant Organisms: None Reported Past Surgical History: Coronary Bypass/CABG, Heart Catheterization With Stent Additional Past Surgical History / Comment(s): Angioplasty Past Anesthesia/Blood Transfusion Reactions: No Reported Reaction Date of Last Stent Placement:: 2011 Past Psychological History: No Psychological Hx Reported Smoking Status: Former smoker Past Alcohol Use History: Occasional Past Drug Use History: None Reported - Past Family History Brother(s) Family Medical History: Coronary Artery Disease (CAD), Prostate Disorder Sister(s) Family Medical History: Coronary Artery Disease (CAD) Father Family Medical History: Congestive Heart Failure (CHF) Mother Family Medical History: Congestive Heart Failure (CHF) General Exam Limitations: no limitations General appearance: alert, in no apparent distress Head exam: Present: atraumatic, normocephalic Eye exam: Present: normal appearance, PERRL ENT exam: Present: normal exam, mucous membranes moist Neck exam: Present: normal inspection. Absent: tenderness, meningismus Respiratory exam: Present: normal lung sounds bilaterally. Absent: respiratory distress, wheezes, rales, rhonchi Cardiovascular Exam: Present: normal rhythm, bradycardia GI/Abdominal exam: Present: soft. Absent: distended, tenderness, guarding Extremities exam: Present: normal inspection, normal capillary refill. Absent: pedal edema, calf tenderness Back exam: Present: normal inspection, full ROM. Absent: tenderness Neurological exam: Present: alert, oriented X3, CN II-XII intact. Absent: motor sensory deficit Psychiatric exam: Present: normal affect, normal mood Skin exam: Present: warm, dry, intact. Absent: cyanosis, diaphoretic Course Vital Signs 05/03/18 05/03/18 16:34 18:00 Temperature 97.8 F Pulse Rate 52 L 51 L Respiratory 18 15 Rate Blood Pressure 170/75 169/70 O2 Sat by Pulse 97 95 Oximetry EKG Findings - EKG Comments: EKG Findings:: EKG: Sinus bradycardia, first-degree AV block LVH, no ST segment elevation rate of 53, UT interval 212, QRS duration 94, QTC 427 Medical Decision Making - Medical Decision Making 82-year-old male intermittent chest tightness for the past one week. Patient does report some flulike symptoms, mild cough. Chest x-ray negative for focal pneumonia. Patient has normal CBC, normal CMP, troponin negative, BNP negative, influenza negative. Patient is anticoagulated with Eliquis, is at baseline, will be continued on this. Patient will be kept in observation for serial cardiac enzymes, telemetry, and cardiology consultation. Case discussed with Dr. Mejia, will admit - Lab Data Result diagrams: 05/03/18 16:45 05/03/18 16:45 Lab Results 05/03/18 05/03/18 05/03/18 Range/Units 16:45 16:45 16:45 WBC 6.3 (3.8-10.6) k/uL RBC 4.57 (4.30-5.90) m/uL Hgb 13.2 (13.0-17.5) gm/dL Hct 41.0 (39.0-53.0) % MCV 89.7 (80.0-100.0) fL MCH 29.0 (25.0-35.0) pg MCHC 32.3 (31.0-37.0) g/dL RDW 14.0 (11.5-15.5) % Plt Count 153 (150-450) k/uL Neutrophils % 59 % Lymphocytes % 28 % Monocytes % 7 % Eosinophils % 2 % Basophils % 1 % Neutrophils # 3.7 (1.3-7.7) k/uL Lymphocytes # 1.8 (1.0-4.8) k/uL Monocytes # 0.4 (0-1.0) k/uL Eosinophils # 0.2 (0-0.7) k/uL Basophils # 0.0 (0-0.2) k/uL PT (9.0-12.0) sec INR (<1.2) APTT (22.0-30.0) sec Sodium 138 (137-145) mmol/L Potassium 4.3 (3.5-5.1) mmol/L Chloride 102 (98-107) mmol/L Carbon Dioxide 26 (22-30) mmol/L Anion Gap 10 mmol/L BUN 17 (9-20) mg/dL Creatinine 0.97 (0.66-1.25) mg/dL Est GFR (CKD-EPI)AfAm 83 (>60 ml/min/1.73 sqM) Est GFR (CKD-EPI)NonAf 72 (>60 ml/min/1.73 sqM) Glucose 125 H (74-99) mg/dL Calcium 9.2 (8.4-10.2) mg/dL Magnesium 2.0 (1.6-2.3) mg/dL Total Bilirubin 0.4 (0.2-1.3) mg/dL AST 22 (17-59) U/L ALT 22 (21-72) U/L Alkaline Phosphatase 50 (38-126) U/L Troponin I (0.000-0.034) ng/mL NT-Pro-B Natriuret Pep 295 pg/mL Total Protein 7.4 (6.3-8.2) g/dL Albumin 4.1 (3.5-5.0) g/dL Influenza Type A RNA (Not Detectd) Influenza Type B (PCR) (Not Detectd) 05/03/18 05/03/18 05/03/18 Range/Units 16:45 16:45 17:26 WBC (3.8-10.6) k/uL RBC (4.30-5.90) m/uL Hgb (13.0-17.5) gm/dL Hct (39.0-53.0) % MCV (80.0-100.0) fL MCH (25.0-35.0) pg MCHC (31.0-37.0) g/dL RDW (11.5-15.5) % Plt Count (150-450) k/uL Neutrophils % % Lymphocytes % % Monocytes % % Eosinophils % % Basophils % % Neutrophils # (1.3-7.7) k/uL Lymphocytes # (1.0-4.8) k/uL Monocytes # (0-1.0) k/uL Eosinophils # (0-0.7) k/uL Basophils # (0-0.2) k/uL PT 10.9 (9.0-12.0) sec INR 1.0 (<1.2) APTT 31.3 H (22.0-30.0) sec Sodium (137-145) mmol/L Potassium (3.5-5.1) mmol/L Chloride (98-107) mmol/L Carbon Dioxide (22-30) mmol/L Anion Gap mmol/L BUN (9-20) mg/dL Creatinine (0.66-1.25) mg/dL Est GFR (CKD-EPI)AfAm (>60 ml/min/1.73 sqM) Est GFR (CKD-EPI)NonAf (>60 ml/min/1.73 sqM) Glucose (74-99) mg/dL Calcium (8.4-10.2) mg/dL Magnesium (1.6-2.3) mg/dL Total Bilirubin (0.2-1.3) mg/dL AST (17-59) U/L ALT (21-72) U/L Alkaline Phosphatase (38-126) U/L Troponin I <0.012 (0.000-0.034) ng/mL NT-Pro-B Natriuret Pep pg/mL Total Protein (6.3-8.2) g/dL Albumin (3.5-5.0) g/dL Influenza Type A RNA Not Detected (Not Detectd) Influenza Type B (PCR) Not Detected (Not Detectd) Disposition Clinical Impression: Hx of CABG, Chest pain Disposition: ADMITTED IP TO THIS HOSP Condition: Stable Is patient prescribed a controlled substance at d/c from ED?: No Referrals: Yordan Bhakta MD [Primary Care Provider] - 1-2 days Decision to Admit Reason: Admit from EC Decision Date: 05/03/18 Decision Time: 18:50
[2018-05-03 17:19] LABS: Basophils % (A) 1 %; Eosinophils # (A) 0.2 k/uL (0-0.7); Eosinophils % (A) 2 %; HGB 13.2 gm/dL (13.0-17.5); Lymphocytes # (A) 1.8 k/uL (1.0-4.8); Lymphocytes % (A) 28 %; MCHC 32.3 g/dL (31.0-37.0); MCV 89.7 fL (80.0-100.0); Mean Platelet Volume 8.6; Monocytes # (A) 0.4 k/uL (0-1.0); Monocytes % (A) 7 %; Neutrophils # (A) 3.7 k/uL (1.3-7.7); Neutrophils % (A) 59 %; Platelet Count 153 k/uL (150-450); RBC 4.57 m/uL (4.30-5.90); WBC 6.3 k/uL (3.8-10.6)
[2018-05-03 17:30] LABS: Partial Thromboplastin Time 31.3 sec (22.0-30.0); Prothrombin Time 10.9 sec (9.0-12.0)
[2018-05-03 17:31] LABS: Albumin 4.1 g/dL (3.5-5.0); Calcium 9.2 mg/dL (8.4-10.2); Potassium 4.3 mmol/L (3.5-5.1); Total Bilirubin 0.4 mg/dL (0.2-1.3); Total Protein 7.4 g/dL (6.3-8.2)
--- NOTE | 2018-05-03 18:14 | XR ---
EXAMINATION: XR chest 2V DATE AND TIME: 05/03/2018 5:17 PM CLINICAL INDICATION: PHH; Chest Pain TECHNIQUE: Departmental protocol COMPARISON: 07/26/2016 FINDINGS: The lungs are clear. The pleural spaces are negative. Surgical sutures and mediastinal clips are redemonstrated. The cardiac silhouette is not enlarged. Th e remainder of the mediastinal silhouette is unremarkable. The skeletal structures and soft tissues are negative for acute findings. IMPRESSION: NO ACUTE PROCESS.
[2018-05-03] MEDS ORDERED: ASPIRIN 325 MG TAB PO STA (18:34)
[2018-05-03] MEDS ORDERED: NALOXONE 0.4 MG/ML 1 ML VIAL IV PRN (18:45)
[2018-05-03] MEDS ORDERED: ACETAMINOPHEN TAB 325 MG TAB PO PRN (18:45)
[2018-05-03] MEDS ORDERED: SODIUM CHLORIDE 0.9% 500 ML 500 ML IV ONE (18:58)
[2018-05-03] MEDS ORDERED: LOSARTAN 50 MG TAB PO STA (18:58)
[2018-05-03] MEDS ORDERED: PANTOPRAZOLE 40 MG TABLET PO SCH (21:00)
[2018-05-03] MEDS ORDERED: ATORVASTATIN 10 MG TAB PO SCH (21:00)
[2018-05-03] MEDS: APIXABAN 5 MG TAB PO SCH (23:09)
[2018-05-04] MEDS: APIXABAN 5 MG TAB PO SCH (08:17)
[2018-05-04] MEDS ORDERED: FISH OIL PO SCH (09:00)
[2018-05-04] MEDS ORDERED: LOSARTAN 50 MG TAB PO SCH (09:00)
[2018-05-04] MEDS ORDERED: FATTY ACIDS PO SCH (09:00)
[2018-05-04] MEDS ORDERED: OMEGA PO SCH (09:00)
[2018-05-04] MEDS ORDERED: Ubidecarenone [Co Q-10] 200 MG PO SCH (09:00)
[2018-05-04 09:07] VITALS: RESP 18
[2018-05-04] MEDS ORDERED: REGADENOSON 0.4 MG/5 ML SYRINGE IV ONE (09:28)
[2018-05-04] MEDS ORDERED: CAFFEINE CITRATE 60 MG/3 ML VIAL IV PRN (09:28)
--- NOTE | 2018-05-04 10:22 | P.CRDCN ---
History of Present Illness History of present illness: This is a pleasant 82-year-old male past medical history significant for coronary artery disease status post bypass grafting, paroxysmal atrial fibrillation on long-term anticoagulation, hypertension and dyslipidemia. He follows in the office with Dr. Rhoades. We have been asked to see him in consultation for chest discomfort. He states yesterday he used an elliptical exercise machine for approximately 5 minutes. After getting off the machine he felt overall weak mostly in his legs however then he started having a discomfort in the midsternal region with radiation to the left shoulder. He denies associated shortness of breath, dizziness, nausea, vomiting, palpitations or diaphoresis. He has had no further symptoms of chest discomfort since arriving to the hospital. He is seen and examined resting comfortably in bed in no acute distress. Most recently he underwent cardiac catheterization July 2016 revealing left main free of significant disease, LAD has diffuse disease, some narrowing of the ostium. LAD is totally occluded and bypass with PEARSON to LAD, the left circumflex this previously bypassed with stenting of the OM with an occluded graft, stenting of the ostium of the circumflex and proximal OM is patent beyond the stent there is a segment of 95% stenosis, the second OM is small and diffusely disease, there is significant progression noted with disease in the OM, the RCA has about 40-50% mid lesion. PEARSON to LAD is widely patent at its origin. At that time he underwent successful stent placement to the OM. Echocardiogram obtained at that time revealed preserved left ventricular systolic function with ejection fraction 50-55%, mildly dilated left atrium, moderate aortic stenosis with a mean gradient across the valve 22 mmHg, mild MR and mild TR. EKG on arrival reveals sinus bradycardia with a first-degree AV block heart rate 53. No acute ST or T wave abnormalities noted. Chest x-ray is negative for an acute cardiopulmonary process, Laboratory data reviewed, cardiac enzymes negative 3, NT proBNP 295, creatinine 0.97, magnesium 2.0, potassium 4.3, creatinine 1.38. Current cardiac medications include Eliquis 5 mg twice a day, losartan 50 mg daily, rosuvastatin 50 mg every other day. At the time of my exam: CONSTITUTIONAL: Denies fever. Denies chills. EYES: Denies blurred vision. Denies vision changes. Denies eye pain. EARS, NOSE, MOUTH & THROAT: Denies headache. Denies sore throat. Denies ear pain. CARDIOVASCULAR: Denies chest pain. Denies shortness of breath. Denies orthopnea. Denies PND. Denies palpitations. RESPIRATORY: Denies cough. GASTROINTESTINAL: Denies abdominal pain. Denies diarrhea. Denies constipation. Denies nausea. Denies vomiting. MUSCULOSKELETAL: Denies myalgias. INTEGUMENTARY: Denies pruitis. Denies rash. NEUROLOGIC: Denies numbness. Denies tingling. Denies weakness. PSYCHIATRIC: Denies anxiety. Denies depression. ENDOCRINE: Denies fatigue. Denies weight change. Denies polydipsia. Denies polyurina. GENITOURINARY: Denies burning, hematuria or urgency with micturation. HEMATOLOGIC: Denies history of anemia. Denies bleeding. Blood pressure 163/69 heart rate 46 afebrile maintaining oxygen saturation on room air GENERAL: This is a 82-year-old male in no apparent distress at the time of my examination. HEENT: Head is atraumatic, normocephalic. Pupils are equal, round. Sclerae anicteric. Conjunctivae are clear. Mucous membranes of the mouth are moist. Neck is supple. There is no jugular venous distention. No carotid bruit is heard. LUNGS: Clear to auscultation no wheezes, rales or rhonchi. No chest wall tenderness is noted on palpation or with deep breathing. HEART: Regular rate and rhythm with systolic ejection murmur at the base, no rubs or gallops. S1 and S2 heard. ABDOMEN: Soft, nontender. Bowel sounds are heard. No organomegaly noted. EXTREMITIES: No evidence of peripheral edema and no calf tenderness noted. VASCULAR: Radial and dorsalis pedis pulses palpated, no evidence of clubbing. NEUROLOGIC: Patient is awake, alert and oriented x3. ASSESSMENT Chest pain, atypical for angina. An acute coronary event has been ruled out. History of coronary artery disease status post bypass grafting and subsequent stenting Aortic stenosis Paroxysmal atrial fibrillation on long-term anticoagulation Hypertension Dyslipidemia PLAN An acute coronary event has been ruled out. Resume Eliquis, aspirin, atorvastatin and losartan as previously ordered. Obtain 2-D echocardiogram and Doppler study to assess cardiac structure and function. Perform Lexiscan stress test to assess for stress-induced reversible ischemia. If stress test is abnormal we will consider coronary angiography. If normal he is stable from a cardiac perspective to follow-up with Dr. Rhoades in the office. Nurse Practitioner note has been reviewed, I agree with a documented findings and plan of care. Patient was seen and examined. Past Medical History Past Medical History: Coronary Artery Disease (CAD), GERD/Reflux, Hyperlipidemia, Hypertension, Osteoarthritis (OA), Pneumonia, Prostate Disorder Additional Past Medical History / Comment(s): prostate CA-radiation (in remission since 2006.) History of Any Multi-Drug Resistant Organisms: None Reported Past Surgical History: Coronary Bypass/CABG, Heart Catheterization With Stent, Prostate Surgery Additional Past Surgical History / Comment(s): Angioplasty Past Anesthesia/Blood Transfusion Reactions: No Reported Reaction Date of Last Stent Placement:: 2011 Past Psychological History: No Psychological Hx Reported Smoking Status: Former smoker Past Alcohol Use History: None Reported, Occasional Past Drug Use History: None Reported - Past Family History Brother(s) Family Medical History: Coronary Artery Disease (CAD), Prostate Disorder Sister(s) Family Medical History: Coronary Artery Disease (CAD) Father Family Medical History: Congestive Heart Failure (CHF) Mother Family Medical History: Congestive Heart Failure (CHF) Medications and Allergies Home Medications Medication Instructions Recorded Confirmed Type [place]-3 Fatty Acids/Fish Oil [Fish 1 cap PO DAILY 07/26/16 05/03/18 History Oil 1,000 mg Capsule] Ubidecarenone [Co Q-10] 200 mg PO DAILY 07/26/16 05/03/18 History Apixaban [Eliquis] 5 mg PO BID 09/06/17 05/03/18 History Losartan [Cozaar] 50 mg PO DAILY 09/06/17 05/03/18 History Pantoprazole [Protonix] 40 mg PO HS 09/06/17 05/03/18 History Rosuvastatin Calcium [Crestor] 5 mg PO Q48H 09/06/17 05/03/18 History Allergies Allergy/AdvReac Type Severity Reaction Status Date / Time Penicillins Allergy Rash/Hives Verified 05/03/18 16:53 Sulfa (Sulfonamide Allergy Rash/Hives Verified 05/03/18 16:53 Antibiotics) tetanus and diphtheria Allergy Unknown Verified 05/03/18 16:53 toxoids Physical Exam Vitals: Vital Signs Temp Pulse Pulse Resp BP BP Pulse Ox 05/04/18 07:50 97.4 F L 46 L 18 163/69 96 05/04/18 03:10 64 17 05/04/18 00:00 64 17 05/03/18 23:00 63 17 05/03/18 20:32 57 L 16 167/70 96 05/03/18 20:00 98.1 F 63 18 120/63 05/03/18 18:55 49 L 18 185/80 95 05/03/18 18:00 51 L 15 169/70 95 05/03/18 16:34 97.8 F 52 L 18 170/75 97 Intake and Output 05/03/18 05/04/18 05/04/18 22:59 06:59 14:59 Other: Voiding Method Toilet # Voids 1 # Bowel Movements 1 Weight 84.368 kg Results 05/03/18 16:45 05/03/18 16:45 Cardiac Enzymes 05/03/18 05/03/18 05/03/18 Range/Units 16:45 16:45 22:28 AST 22 (17-59) U/L Troponin I <0.012 <0.012 (0.000-0.034) ng/mL 05/04/18 Range/Units 05:42 AST (17-59) U/L Troponin I <0.012 (0.000-0.034) ng/mL Coagulation 05/03/18 Range/Units 16:45 PT 10.9 (9.0-12.0) sec APTT 31.3 H (22.0-30.0) sec CBC 05/03/18 Range/Units 16:45 WBC 6.3 (3.8-10.6) k/uL RBC 4.57 (4.30-5.90) m/uL Hgb 13.2 (13.0-17.5) gm/dL Hct 41.0 (39.0-53.0) % Plt Count 153 (150-450) k/uL Comprehensive Metabolic Panel 05/03/18 Range/Units 16:45 Sodium 138 (137-145) mmol/L Potassium 4.3 (3.5-5.1) mmol/L Chloride 102 (98-107) mmol/L Carbon Dioxide 26 (22-30) mmol/L BUN 17 (9-20) mg/dL Creatinine 0.97 (0.66-1.25) mg/dL Glucose 125 H (74-99) mg/dL Calcium 9.2 (8.4-10.2) mg/dL AST 22 (17-59) U/L ALT 22 (21-72) U/L Alkaline Phosphatase 50 (38-126) U/L Total Protein 7.4 (6.3-8.2) g/dL Albumin 4.1 (3.5-5.0) g/dL Current Medications Generic Name Dose Route Start Last Admin Trade Name Mikeq PRN Reason Stop Dose Admin Acetaminophen 650 mg 05/03/18 18:45 Tylenol Tab PO Q6HR PRN Mild Pain or Fever > 100.5 Apixaban 5 mg 05/03/18 21:00 05/04/18 08:17 Eliquis PO 5 mg BID FRANCISCO Administration Aspirin 81 mg 05/05/18 09:00 Aspirin PO DAILY [facility] Atorvastatin Calcium 10 mg 05/03/18 21:00 05/03/18 23:09 Lipitor PO 10 mg Q48H FRANCISCO Administration Caffeine Citrate 60 mg 05/04/18 09:28 Cafcit Inj IV 05/06/18 09:29 ONCE PRN Patient Response Losartan Potassium 50 mg 05/04/18 09:00 05/04/18 08:17 Cozaar PO 50 mg DAILY FRANCISCO Administration Naloxone HCl 0.2 mg 05/03/18 18:45 Narcan IV Q2M PRN Opioid Reversal [place]-3 Fatty Acids/ 1 cap 05/04/18 09:00 05/04/18 08:18 Fish Oil [Fish Oil 1 PO Not Given ,000 Mg Capsule] 1 DAILY FRANCISCO Cap Ubidecarenone [Co Q- 200 mg 05/04/18 09:00 05/04/18 08:18 10] 200 Mg PO Not Given DAILY FRANCISCO Pantoprazole Sodium 40 mg 05/03/18 21:00 05/03/18 23:09 Protonix PO 40 mg HS FRANCISCO Administration Intake and Output 05/03/18 05/04/18 05/04/18 22:59 06:59 14:59 Other: Voiding Method Toilet # Voids 1 # Bowel Movements 1 Weight 84.368 kg 05/03/18 16:45 05/03/18 16:45
[2018-05-04 12:11] VITALS: BP 166/69; PULSE 58; TEMP 97.6
--- NOTE | 2018-05-04 12:24 | NM ---
EXAMINATION TYPE: NM stress lexiscan cardiolite DATE OF EXAM: 05/04/2018 COMPARISON: NONE HISTORY: Chest pain TECHNIQUE: After the intravenous administration of 10.5 mCi Tc 99m Sestamibi - Cardiolite resting SP ECT images acquired 45 minutes post injection. The patient received 0.4mg Lexiscan, 26.2 mCi Tc 99m Sestamibi - Stress images obtained [address] injection FINDINGS: Review of stress and rest SPECT images demonstrates no distinct perfusion abnormality. Gated analysi s shows normal wall motion with an estimated left ventricular ejection fraction of 58 %. TID is upper limits of normal calculated at 1.27. IMPRESSION: No scintigraphic evidence for reversible ischemia.
--- NOTE | 2018-05-04 13:02 | ECHOF ---
Referral Reason: MEASUREMENTS -------- HEIGHT: 180.3 cm WEIGHT: 84.4 kg BP: 167/70 RVIDd: 3.4 cm (< 3.3) IVSd: 1.1 cm (0.6 - 1.1) LVIDd: 4.4 cm (3.9 - 5.3) LVPWd: 1.5 cm (0.6 - 1.1) IVSs: 1.9 cm LVIDs: 2.1 cm LVPWs: 1.9 cm LAESV Index (A-L): 24.98 ml/m Ao Diam: 2.7 cm (2.0 - 3.7) AV Cusp: 1.4 cm (1.5 - 2.6) LA Diam: 4.4 cm (2.7 - 3.8) MV EXCURSION: 20.130 mm (> 18.000) MV EF SLOPE: 87 mm/s (70 - 150) EPSS: 0.7 cm MV E Jacinto: 0.98 m/s MV DecT: 302 ms MV A Jacinto: 0.91 m/s MV E/A Ratio: 1.08 AV maxP.90 mmHg AV meanP.20 mmHg AR PHT: 366 ms RAP: 5.00 mmHg RVSP: 39.53 mmHg FINDINGS -------- Sinus rhythm. This was a technically adequate study. The left ventricular size is normal. There is mild concentric left ventricular hypertrophy. Overa ll left ventricular systolic function is normal with, an EF between 55 - 60 %. The right ventricle is mildly enlarged. Normal LA size by volume 22+/-6 ml/m2. The right atrial size is normal. There is moderate aortic valve sclerosis. Trace amount of aortic regurgitation. There is moderat e-to-severe aortic stenosis present. Peak/mean gradient across the Aortic Valve is 45.90mmHg / 28.2 0mmHg. Mild mitral annular calcification present. Mild mitral regurgitation is present. Mild tricuspid regurgitation present. There is mild pulmonary hypertension. The right ventricular systolic pressure, as measured by Doppler, is 39.53mmHg. The pulmonic valve was not well visualized. There is no pulmonic regurgitation present. The aortic root size is normal. IVC Not well visulized. There is no pericardial effusion. CONCLUSIONS -------- 1. Sinus rhythm. 2. This was a technically adequate study. 3. The left ventricular size is normal. 4. There is mild concentric left ventricular hypertrophy. 5. Overall left ventricular systolic function is normal with, an EF between 55 - 60 %. 6. The right ventricle is mildly enlarged. 7. Normal LA size by volume 22+/-6 ml/m2. 8. There is moderate aortic valve sclerosis. 9. Trace amount of aortic regurgitation. 10. There is [id number] aortic stenosis present. 11. Peak/mean gradient across the Aortic Valve is 45.90mmHg / 28.20mmHg. 12. Mild mitral annular calcification present. 13. Mild mitral regurgitation is present. 14. Mild tricuspid regurgitation present. 15. There is mild pulmonary hypertension. 16. There is no pulmonic regurgitation present. 17. The aortic root size is normal. 18. IVC Not well visulized. 19. There is no pericardial effusion. [employer]GMENT LEADER: Bernadette Engel RDCS
--- NOTE | 2018-05-04 14:23 | P.HPIM ---
History of Present Illness H&P Date: 05/04/18 Chief Complaint: Chest pain This is an 82-year-old male patient of Dr. Bhakta and Dr. FLORI Rhoades with past medical history of coronary artery disease status post CABG and stenting, hypertension, hyperlipidemia, gastroesophageal reflux disease, short-term memory deficit, osteoarthritis, prostate cancer status post radiation in remission, remote history of tobacco use and dependence. Patient describes discomfort across the middle of his chest. He states it started 7 days ago when he was using a step climber exercise machine. He used to for 5 minutes when he got off he was feeling the discomfort. He states every time he exerts himself since then he feels fatigued afterwards but not during the activity. Patient came into [facility] emergency center for evaluation. He was afebrile, heart rate in the 50s, blood pressure 170/75, pulse ox 97% on room air. EKG sinus bradycardia with first-degree block, LVH. No acute ST changes. White count 6.3, hemoglobin 13.2, platelet count 153. Electrolytes within normal limits, creatinine 0.97. Blood sugar 125, proBNP 295. Troponin negative. Influenza testing negative. Chest x-ray showed no acute process. Patient was placed on the observation unit and cardiology consult requested. Echocardiogram reveals EF of 55-60% with mild concentric left ventricular hypertrophy, trace aortic regurgitation, moderate aortic valve sclerosis, moderate to severe aortic stenosis, mild mitral regurgitation, mild tricuspid regurgitation. Cardiolite Lexiscan stress test was normal and patient was cleare d for discharge home. Review of Systems All systems: negative Constitutional: Denies chills, Denies fatigue, Denies fever, Denies lethargy, Denies malaise, Denies poor appetite, Denies weakness, Denies weight loss Eyes: denies blurred vision, denies pain Ears, nose, mouth and throat: Denies dysphagia, Denies headache, Denies sore throat, Denies vertigo Cardiovascular: Denies chest pain, Denies dyspnea on exertion, Denies edema, Denies leg edema, Denies lightheadedness, Denies shortness of breath, Denies syncope Respiratory: Denies cough, Denies cough with sputum, Denies dyspnea, Denies excessive sputum, Denies hemoptysis, Denies home oxygen, Denies wheezing Gastrointestinal: Denies abdominal pain, Denies diarrhea, Denies loss of appetite, Denies melena, Denies nausea, Denies vomiting Genitourinary: Denies dysuria Musculoskeletal: Denies frequent falls, Denies gait dysfunction, Denies myalgias Integumentary: Denies pruritus, Denies rash, Denies wounds Neurological: Denies aphasia, Denies change in mentation, Denies change in speech, Denies confusion, Denies head injury, Denies numbness, Denies seizures, Denies vertigo, Denies weakness Psychiatric: Denies anxiety, Denies depression Endocrine: Denies fatigue, Denies weight change Past Medical History Past Medical History: Coronary Artery Disease (CAD), GERD/Reflux, Hyperlipidemia, Hypertension, Osteoarthritis (OA), Pneumonia, Prostate Disorder Additional Past Medical History / Comment(s): prostate CA-radiation (in remissi on since 2006.) History of Any Multi-Drug Resistant Organisms: None Reported Past Surgical History: Coronary Bypass/CABG, Heart Catheterization With Stent, Prostate Surgery Additional Past Surgical History / Comment(s): Angioplasty Past Anesthesia/Blood Transfusion Reactions: No Reported Reaction Date of Last Stent Placement:: 2011 Past Psychological History: No Psychological Hx Reported Smoking Status: Former smoker Past Alcohol Use History: None Reported, Occasional Past Drug Use History: None Reported - Past Family History Brother(s) Family Medical History: Coronary Artery Disease (CAD), Prostate Disorder Sister(s) Family Medical History: Coronary Artery Disease (CAD) Father Family Medical History: Congestive Heart Failure (CHF) Mother Family Medical History: Congestive Heart Failure (CHF) Medications and Allergies Home Medications Medication Instructions Recorded Confirmed Type [place]-3 Fatty Acids/Fish Oil [Fish 1 cap PO DAILY 07/26/16 05/03/18 History Oil 1,000 mg Capsule] Ubidecarenone [Co Q-10] 200 mg PO DAILY 07/26/16 05/03/18 History Apixaban [Eliquis] 5 mg PO BID 09/06/17 05/03/18 History Losartan [Cozaar] 50 mg PO DAILY 09/06/17 05/03/18 History Pantoprazole [Protonix] 40 mg PO HS 09/06/17 05/03/18 History Rosuvastatin Calcium [Crestor] 5 mg PO Q48H 09/06/17 05/03/18 History Allergies Allergy/AdvReac Type Severity Reaction Status Date / Time Penicillins Allergy Rash/Hives Verified 05/03/18 16:53 Sulfa (Sulfonamide Allergy Rash/Hives Verified 05/03/18 16:53 Antibiotics) tetanus and diphtheria Allergy Unknown Verified 05/03/18 16:53 toxoids Physical Exam Vitals: Vital Signs Temp Pulse Pulse Resp BP BP Pulse Ox 05/04/18 07:50 97.4 F L 46 L 18 163/69 96 05/04/18 03:10 64 17 05/04/18 00:00 64 17 05/03/18 23:00 63 17 05/03/18 20:32 57 L 16 167/70 96 05/03/18 20:00 98.1 F 63 18 120/63 05/03/18 18:55 49 L 18 185/80 95 05/03/18 18:00 51 L 15 169/70 95 05/03/18 16:34 97.8 F 52 L 18 170/75 97 Intake and Output 05/03/18 05/04/18 05/04/18 22:59 06:59 14:59 Other: Voiding Method Toilet # Voids 1 # Bowel Movements 1 Weight 84.368 kg Gen: This is an 82-year-old male. Patient is resting in bed and appears to be comfortable and in no acute distress. HEENT: Head is atraumatic, normocephalic. Pupils equal, round. Sclerae is anicteric. NECK: Supple. No JVD. No lymphadenopathy. No thyromegaly. LUNGS: Clear to auscultation. No wheezes or rhonchi. No intercostal retractions. HEART: Regular rate and rhythm. Systolic murmur. ABDOMEN: Soft. Bowel sounds are present. No masses. No tenderness. EXTREMITIES: No pedal edema. No calf tenderness. NEUROLOGICAL: Patient is awake, alert and oriented x3. Cranial nerves 2 through 12 are grossly intact. Results CBC & Chem 7: 05/03/18 16:45 05/03/18 16:45 Labs: Abnormal Lab Results - Last 24 Hours (Table) 05/03/18 05/03/18 Range/Units 16:45 16:45 APTT 31.3 H (22.0-30.0) sec Glucose 125 H (74-99) mg/dL Thrombosis Risk Factor Assmnt - Choose All That Apply Each Risk Factor Represents 3 Points: Age 75 years or older Thrombosis Risk Factor Assessment Total Risk Factor Score: 3 Thrombosis Risk Factor Assessment Level: Moderate Risk Assessment and Plan Plan: 1. Chest pain. 2. History of coronary artery disease with previous CABG and heart catheterization with stent. 3. Hypertension. 4. Hyperlipidemia. 5. Gastroesophageal reflux disease. 6. Short-term memory deficit. 7. Prostate cancer status post radiation, in remission. 8. Valvular heart disease with aortic stenosis, mitral regurgitation, tricuspid regurgitation, mild pulmonary hypertension. Patient placed in the observation unit. Discharge plan: home Impression and plan of care have been directed as dictated by the signing physician. Laine Nash nurse practitioner acting as scribe for signing physician.
--- NOTE | 2018-05-04 15:35 | EST ---
EXERCISE STRESS AGE: 82 SEX: M HT: 69" WT: 186 PROTOCOL: Lexiscan Cardiolite Stress Test HEART RATE REST: 47 BLOOD PRESSURE REST: 143/68 MAXIMUM HEART RATE ACHIEVED: 71 MAXIMUM BLOOD PRESSURE: 143/68 INDICATIONS: Chest pain. CLINICAL INFORMATION: Baseline rhythm is sinus mechanism, rate 47, normal axis. Rare PACs and PVCs. Baseline blood pressure 143/68 mmHg. Patient received injection of Lexiscan. Electrocardiographic monitoring revealed no evidence of diagnostic ischemic ST deviation. Cardiolite was injected per protocol. CONCLUSION: 1. Nondiagnostic electrocardiograph stress testing. 2. Nuclear images will be reported separately. MMODL / IJN: [id number] /
[2018-05-05] MEDS ORDERED: ASPIRIN 81 MG PO SCH (09:00)
== END 2018-05-04 14:00 | disposition home or self-care (01) ==
LOC: EC 16:30 → 1SOBS 18:45
PROVIDERS: ADMIT Family Medicine; ATTEND Family Medicine
DX: R07.89 Other chest pain (principal); R05 Cough; R53.1 Weakness; R53.83 Other fatigue; I10 Essential (primary) hypertension; I25.10 Atherosclerotic heart disease of native coronary artery without angina pectoris; K21.9 Gastro-esophageal reflux disease without esophagitis; E78.5 Hyperlipidemia, unspecified; M19.90 Unspecified osteoarthritis, unspecified site; R41.3 Other amnesia; I08.3 Combined rheumatic disorders of mitral, aortic and tricuspid valves; I27.20 Pulmonary hypertension, unspecified; I48.0 Paroxysmal atrial fibrillation; I25.82 Chronic total occlusion of coronary artery; Z95.1 Presence of aortocoronary bypass graft; Z79.899 Other long term (current) drug therapy; Z79.01 Long term (current) use of anticoagulants; Z88.0 Allergy status to penicillin; Z88.2 Allergy status to sulfonamides; Z88.7 Allergy status to serum and vaccine; Z87.01 Personal history of pneumonia (recurrent); Z92.3 Personal history of irradiation; Z85.46 Personal history of malignant neoplasm of prostate; Z95.5 Presence of coronary angioplasty implant and graft; Z87.891 Personal history of nicotine dependence; Z82.49 Family history of ischemic heart disease and other diseases of the circulatory system
CPT/HCPCS: 93005; 96360; 99285; 36415; 93017; 93306; 83880; 80053; 83735; 84484 ×2; 85025; 85610; 85730; 87502; 71046; 78452; G0378 ×2; A9500; J2785

== ENCOUNTER 2018-06-21 16:44 | Observation (INO) | payer MEDICARE ==
[2018-06-21] MEDS ORDERED: SODIUM CHLORIDE 0.9% 1,000 ML IV STA ×2 (16:49)
--- NOTE | 2018-06-21 16:50 | ED ---
Chest Pain HPI - General Stated Complaint: chest pain Time Seen by Provider: 06/21/18 16:47 Source: RN notes reviewed, old records reviewed - History of Present Illness Initial Comments: This is an 82-year-old male to the ER for evaluation. Patient presents with chest pain today. Chest pain prior to arrival. Patient's chest pain is currently resolved with nitro. Patient took 2 nitro prior to arrival. Patient has history of CAD as well as high blood pressure high cholesterol. No shortness of breath and diaphoresis noted. No current chest pain MD Complaint: chest pain -: hour(s) Onset: during rest Pain Location: substernal, left chest Pain Radiation: none Severity: moderate Severity scale (1-10): 3 Quality: tightness, heaviness Consistency: now resolved Improves With: nitroglycerin Worsens With: nothing Treatments Prior to Arrival: none - Related Data Home Medications Medication Instructions Recorded Confirmed [place]-3 Fatty Acids/Fish Oil [Fish 1 cap PO DAILY 07/26/16 06/21/18 Oil 1,000 mg Capsule] Ubidecarenone [Co Q-10] 200 mg PO DAILY 07/26/16 06/21/18 Apixaban [Eliquis] 5 mg PO BID 09/06/17 06/21/18 Losartan [Cozaar] 50 mg PO DAILY 09/06/17 06/21/18 Pantoprazole [Protonix] 40 mg PO HS 09/06/17 06/21/18 Rosuvastatin Calcium [Crestor] 5 mg PO Q48H 09/06/17 06/21/18 Allergies Allergy/AdvReac Type Severity Reaction Status Date / Time Penicillins Allergy Rash/Hives Verified 06/21/18 17:30 Sulfa (Sulfonamide Allergy Rash/Hives Verified 06/21/18 17:30 Antibiotics) tetanus and diphtheria Allergy Unknown Verified 06/21/18 17:30 toxoids Review of Systems ROS Statement: Those systems with pertinent positive or pertinent negative responses have been documented in the HPI. ROS Other: All systems not noted in ROS Statement are negative. EKG Findings - EKG Comments: EKG Findings:: EKG shows sinus bradycardia rate of 49, [place] 220, QRS 90, QTc 420 Past Medical History Past Medical History: Coronary Artery Disease (CAD), GERD/Reflux, Hyperlipidemia, Hypertension, Osteoarthritis (OA), Pneumonia, Prostate Disorder Additional Past Medical History / Comment(s): prostate CA-radiation (in remission since 2006.) History of Any Multi-Drug Resistant Organisms: None Reported Past Surgical History: Coronary Bypass/CABG, Heart Catheterization With Stent, Prostate Surgery Additional Past Surgical History / Comment(s): Angioplasty Past Anesthesia/Blood Transfusion Reactions: No Reported Reaction Date of Last Stent Placement:: 2011 Past Psychological History: No Psychological Hx Reported Smoking Status: Former smoker Past Alcohol Use History: None Reported, Occasional Past Drug Use History: None Reported - Past Family History Brother(s) Family Medical History: Coronary Artery Disease (CAD), Prostate Disorder Sister(s) Family Medical History: Coronary Artery Disease (CAD) Father Family Medical History: Congestive Heart Failure (CHF) Mother Family Medical History: Congestive Heart Failure (CHF) General Exam General appearance: alert, in no apparent distress Head exam: Present: atraumatic, normocephalic, normal inspection Eye exam: Present: normal appearance, PERRL, EOMI. Absent: scleral icterus, conjunctival injection, periorbital swelling ENT exam: Present: normal exam, mucous membranes moist Neck exam: Present: normal inspection. Absent: tenderness, meningismus, lymphadenopathy Respiratory exam: Present: normal lung sounds bilaterally. Absent: respiratory distress, wheezes, rales, rhonchi, stridor Cardiovascular Exam: Present: regular rate, normal rhythm, normal heart sounds. Absent: systolic murmur, diastolic murmur, rubs, gallop, clicks GI/Abdominal exam: Present: soft, normal bowel sounds. Absent: distended, tenderness, guarding, rebound, rigid Extremities exam: Present: normal inspection, full ROM, normal capillary refill. Absent: tenderness, pedal edema, joint swelling, calf tenderness Back exam: Present: normal inspection Neurological exam: Present: alert, oriented X3, CN II-XII intact Psychiatric exam: Present: normal affect, normal mood Skin exam: Present: warm, dry, intact, normal color. Absent: rash Course Vital Signs 06/21/18 16:46 Temperature 98.4 F Pulse Rate 52 L Respiratory 18 Rate Blood Pressure 150/72 O2 Sat by Pulse 99 Oximetry - Reevaluation(s) Reevaluation #1: 06/21/18 19:05 Medical record reviewed Reevaluation #2: 06/21/18 19:06 Patient still with episodic chest pain Chest Pain MDM - MDM 82 male the ER for evasive chest pain positive chest pain. Patient will be admitted for chest pain observation Critical Care Time Critical Care Time: Yes Total Critical Care Time: 31 Disposition Clinical Impression: Unstable angina pectoris, CAD (coronary artery disease), Hx of CABG, Chest pain Disposition: ADMITTED IP TO THIS HOSP Condition: Undetermined Instructions (If sedation given, give patient instructions): Chest Pain (ED) Is patient prescribed a controlled substance at d/c from ED?: No Referrals: Yordan Bhakta MD [Primary Care Provider] - 1-2 days
[2018-06-21 17:12] LABS: Basophils # (A) 0.1 k/uL (0-0.2); Basophils % (A) 1 %; Eosinophils # (A) 0.2 k/uL (0-0.7); Eosinophils % (A) 3 %; HGB 12.4 gm/dL (13.0-17.5); Lymphocytes # (A) 1.6 k/uL (1.0-4.8); Lymphocytes % (A) 23 %; MCH 29.7 pg (25.0-35.0); MCHC 33.4 g/dL (31.0-37.0); MCV 88.9 fL (80.0-100.0); Mean Platelet Volume 8.5; Monocytes # (A) 0.5 k/uL (0-1.0); Monocytes % (A) 7 %; Neutrophils # (A) 4.3 k/uL (1.3-7.7); Neutrophils % (A) 62 %; Platelet Count 154 k/uL (150-450); RBC 4.16 m/uL (4.30-5.90); RDW 14.3 % (11.5-15.5); WBC 6.8 k/uL (3.8-10.6)
[2018-06-21 17:24] LABS: Partial Thromboplastin Time 31.9 sec (22.0-30.0); Prothrombin Time 10.8 sec (9.0-12.0)
[2018-06-21 17:25] LABS: Calcium 9.1 mg/dL (8.4-10.2); Magnesium 1.9 mg/dL (1.6-2.3); Potassium 4.4 mmol/L (3.5-5.1); Total Bilirubin 0.5 mg/dL (0.2-1.3)
[2018-06-21 17:44] LABS: D-Dimer 0.8 mg/L FEU (<0.60)
--- NOTE | 2018-06-21 18:07 | XR ---
EXAMINATION: XR chest 2V DATE AND TIME: 06/21/2018 5:42 PM CLINICAL INDICATION: PHH; Chest Pain TECHNIQUE: Departmental protocol COMPARISON: 05/03/2018 FINDINGS: The lungs appear clear bilaterally. No acute pleural spaces findings. Sternal sutures and mediastinal clips and EKG leads. Cardiomediastinal silhouette and bones and soft tissues are unremarkable. IMPRESSION: NO ACUTE RADIOGRAPHIC PROCESS.
[2018-06-21] MEDS ORDERED: NITROGLYCERIN SL TABS 0.4 MG TAB SUBLINGUAL PRN (19:02)
[2018-06-21] MEDS ORDERED: PANTOPRAZOLE 40 MG TABLET PO SCH (21:45)
[2018-06-21] MEDS: APIXABAN 5 MG TAB PO SCH (22:01)
[2018-06-21] MEDS: LOSARTAN 50 MG TAB PO SCH (22:01)
[2018-06-21 22:26] VITALS: BMI 28.5
[2018-06-21 23:42] VITALS: RESP 18
[2018-06-22 06:27] LABS: Cholesterol 125 mg/dL (<200); HDL Cholesterol 41 mg/dL (40-60); LDL Cholesterol,Calculated 59 mg/dL (0-99); Triglycerides 123 mg/dL (<150)
[2018-06-22] MEDS: APIXABAN 5 MG TAB PO SCH (08:47)
[2018-06-22] MEDS: LOSARTAN 50 MG TAB PO SCH (08:52)
[2018-06-22] MEDS ORDERED: ACETAMINOPHEN TAB 325 MG TAB PO PRN (08:53)
[2018-06-22] MEDS ORDERED: NON-FORMULARY DRUG (Omega-3 Fatty Acids/Fish Oil [Fish Oil 1,000 Mg Capsule] 1 CAP) PO SCH (09:00)
[2018-06-22] MEDS ORDERED: ATORVASTATIN 10 MG TAB PO SCH (09:00)
[2018-06-22] MEDS ORDERED: ASPIRIN 325 MG TAB PO SCH (09:00)
[2018-06-22] MEDS ORDERED: NON-FORMULARY DRUG (Ubidecarenone [Co Q-10] 200 MG) PO SCH (09:00)
[2018-06-22] MEDS ORDERED: ISOSORBIDE MONONITRATE ER 30 MG TAB.ER.24H PO SCH (10:00)
--- NOTE | 2018-06-22 11:02 | P.CRDCN ---
History of Present Illness History of present illness: This is a pleasant 82-year-old male past medical history significant for coronary artery disease status post bypass grafting and subsequent stent placement to the [place] vessels, hypertension, dyslipidemia and paroxysmal atrial fibrillation on long-term anticoagulation. He follows Dr. Rhoades in the office. We have been asked to see him in consultation for symptoms of chest discomfort. He states he has been coughing for the previous 4 days but does not bring up any significant amount of sputum. Yesterday he describes a pressure heavy sensation in the upper anterior chest with radiation up to the base of his throat and neck. This was associated shortness of breath. His symptoms of chest discomfort has resolved since admission. Most recent catheterization performed reveals left main is free of significant disease, LAD with diffuse disease and some narrowing at the ostium, totally occluded and is bypassed with [place]AR[place], circumflex artery is bypassed with stenting of the first OM with an occluded graft, he underwent stenting of the ostium of the circumflex flex in 2011 and also the proximal portion of the OM was stented and is patent beyond the stent there is 95% stenosis noted, second OM is a small diffusely diseased vessel, RCA has about 40-50% lesion in the midportion. PEARSON to LAD is widely patent. Most recent echocardiogram obtained April 2018 revealed preserved left ventricular systolic function with ejection fraction 55-60% with moderate to severe aortic stenosis with mean gradient of 28 mmHg, mild MR, mild TR and mild pulmonary hypertension with an RVSP of 39 mmHg. He underwent Lexiscan stress test in April 2018 was negative for reversible ischemia. EKG reveals sinus mechanism with first-degree AV block heart rate is 49. Chest x-ray is negative for acute cardiopulmonary process. Laboratory data reviewed, WBC 6.8, hemoglobin 12.4, platelets 154, d-dimer 0.8, sodium 136, potassium 4.4, creatinine 0.96, GFR 73, magnesium 1.9, cardiac enzymes negative 3, LDL 59, NT proBNP 471. Current cardiac medications include losartan 50 mg daily, Eliquis 5 mg twice a day and rosuvastatin 5 mg every other day. At the time of my exam: CONSTITUTIONAL: Denies fever. Denies chills. EYES: Denies blurred vision. Denies vision changes. Denies eye pain. EARS, NOSE, MOUTH & THROAT: Denies headache. Denies sore throat. Denies ear pain. CARDIOVASCULAR: Denies chest pain. Denies shortness of breath. Denies orthopnea. Denies PND. Denies palpitations. RESPIRATORY: Complains of cough. GASTROINTESTINAL: Denies abdominal pain. Denies diarrhea. Denies constipation. Denies nausea. Denies vomiting. MUSCULOSKELETAL: Denies myalgias. INTEGUMENTARY: Denies pruitis. Denies rash. NEUROLOGIC: Denies numbness. Denies tingling. Denies weakness. PSYCHIATRIC: Denies anxiety. Denies depression. ENDOCRINE: Denies fatigue. Denies weight change. Denies polydipsia. Denies polyurina. GENITOURINARY: Denies burning, hematuria or urgency with micturation. HEMATOLOGIC: Denies history of anemia. Denies bleeding. Blood pressure 158/71 heart rate 61 afebrile maintaining oxygen saturation on room air GENERAL: This is a 82-year-old male in no apparent distress at the time of my examination. HEENT: Head is atraumatic, normocephalic. Pupils are equal, round. Sclerae anicteric. Conjunctivae are clear. Mucous membranes of the mouth are moist. Neck is supple. There is no jugular venous distention. No carotid bruit is heard. LUNGS: Clear to auscultation no wheezes, rales or rhonchi. No chest wall tenderness is noted on palpation or with deep breathing. HEART: Regular rate and rhythm with systolic ejection murmur at the base, no rubs or gallops. S1 and S2 heard. ABDOMEN: Soft, nontender. Bowel sounds are heard. No organomegaly noted. EXTREMITIES: No evidence of peripheral edema and no calf tenderness noted. VASCULAR: Radial and dorsalis pedis pulses palpated, no evidence of clubbing. NEUROLOGIC: Patient is awake, alert and oriented x3. ASSESSMENT Chest pain suggestive of unstable angina. An acute coronary event has been ruled out. Recent Lexiscan stress test with no evidence of reversible ischemia. History of coronary artery disease status post bypass grafting, grafts are occluded with subsequent stent placement in the [place] vessels Paroxysmal atrial fibrillation on long-term anticoagulation History of sinus bradycardia, asymptomatic Hypertension Dyslipidemia PLAN Initially we recommended he undergo cardiac catheterization, discussion with his primary photoradio operator Dr. Rhoades and he is recommending long acting nitrate. Initiate on Imdur 30 mg daily and increase activity and ambulation. If he has symptoms of chest discomfort on long acting nitrate we will consider coronary angiography tomorrow. Hold Eliquis. If he remains asymptomatic with activity he may be discharged home and he will see Dr. Rhoades in the office on Wednesday morning. Thank you kindly for this consultation. Nurse Practitioner note has been reviewed, I agree with a documented findings and plan of care. Patient was seen and examined. Past Medical History Past Medical History: Coronary Artery Disease (CAD), Chest Pain / Angina, GERD/Reflux, Hyperlipidemia, Hypertension, Osteoarthritis (OA), Pneumonia, Prostate Disorder Additional Past Medical History / Comment(s): prostate CA-radiation (in remission since 2006.) History of Any Multi-Drug Resistant Organisms: None Reported Past Surgical History: Coronary Bypass/CABG, Heart Catheterization With Stent, Prostate Surgery Additional Past Surgical History / Comment(s): Angioplasty Past Anesthesia/Blood Transfusion Reactions: No Reported Reaction Date of Last Stent Placement:: 2011 Smoking Status: Former smoker - Past Family History Brother(s) Family Medical History: Coronary Artery Disease (CAD), Prostate Disorder Sister(s) Family Medical History: Coronary Artery Disease (CAD) Father Family Medical History: Congestive Heart Failure (CHF) Mother Family Medical History: Congestive Heart Failure (CHF) Medications and Allergies Home Medications Medication Instructions Recorded Confirmed Type [place]-3 Fatty Acids/Fish Oil [Fish 1 cap PO DAILY 07/26/16 06/21/18 History Oil 1,000 mg Capsule] Ubidecarenone [Co Q-10] 200 mg PO DAILY 07/26/16 06/21/18 History Apixaban [Eliquis] 5 mg PO BID 09/06/17 06/21/18 History Losartan [Cozaar] 50 mg PO DAILY 09/06/17 06/21/18 History Pantoprazole [Protonix] 40 mg PO HS 09/06/17 06/21/18 History Rosuvastatin Calcium [Crestor] 5 mg PO Q48H 09/06/17 06/21/18 History Allergies Allergy/AdvReac Type Severity Reaction Status Date / Time Penicillins Allergy Rash/Hives Verified 06/21/18 20:49 Sulfa (Sulfonamide Allergy Rash/Hives Verified 06/21/18 20:49 Antibiotics) tetanus and diphtheria Allergy Unknown Verified 06/21/18 20:49 toxoids Physical Exam Vitals: Vital Signs Temp Pulse Pulse Resp BP BP BP 06/22/18 08:00 61 18 06/22/18 07:30 98.5 F 61 18 158/71 06/22/18 03:55 98.0 F 65 18 165/74 06/22/18 03:52 59 L 18 06/22/18 00:10 61 18 06/21/18 23:41 98.3 F 57 L 18 148/71 06/21/18 20:56 168/73 06/21/18 20:20 78 18 06/21/18 20:00 97.6 F 50 L 16 185/70 06/21/18 19:30 49 L 17 178/72 06/21/18 19:00 50 L 13 167/74 06/21/18 18:30 49 L 11 L 160/79 06/21/18 18:00 48 L 11 L 149/68 06/21/18 17:30 51 L 16 154/71 06/21/18 17:01 50 L 19 06/21/18 16:46 98.4 F 52 L 18 150/72 Pulse Ox 06/22/18 08:00 06/22/18 07:30 97 06/22/18 03:55 94 L 06/22/18 03:52 06/22/18 00:10 06/21/18 23:41 98 06/21/18 20:56 06/21/18 20:20 06/21/18 20:00 96 06/21/18 19:30 97 06/21/18 19:00 06/21/18 18:30 98 06/21/18 18:00 98 06/21/18 17:30 95 06/21/18 17:01 06/21/18 16:46 99 Intake and Output 06/21/18 06/22/18 06/22/18 22:59 06:59 14:59 Intake Total 1000 700 Balance 1000 700 Intake: Amount of Fluid Infused ( 1000 ml) Intake, IV Titration 700 Amount Sodium Chloride 0.9% 1, 700 000 ml @ 100 mls/hr IV . Q10H STA Rx#:[id number] Other: Voiding Method Toilet Toilet Toilet # Voids 1 3 Weight 87.8 kg Results 06/21/18 17:00 06/21/18 17:00 Cardiac Enzymes 06/21/18 06/21/18 06/21/18 Range/Units 17:00 17:00 23:00 AST 26 (17-59) U/L Troponin I <0.012 <0.012 (0.000-0.034) ng/mL 06/22/18 Range/Units 05:47 AST (17-59) U/L Troponin I <0.012 (0.000-0.034) ng/mL Coagulation 06/21/18 Range/Units 17:00 PT 10.8 (9.0-12.0) sec APTT 31.9 H (22.0-30.0) sec Lipids 06/22/18 Range/Units 05:47 Triglycerides 123 (<150) mg/dL Cholesterol 125 (<200) mg/dL HDL Cholesterol 41 (40-60) mg/dL CBC 06/21/18 Range/Units 17:00 WBC 6.8 (3.8-10.6) k/uL RBC 4.16 L (4.30-5.90) m/uL Hgb 12.4 L (13.0-17.5) gm/dL Hct 37.0 L (39.0-53.0) % Plt Count 154 (150-450) k/uL Comprehensive Metabolic Panel 06/21/18 Range/Units 17:00 Sodium 136 L (137-145) mmol/L Potassium 4.4 (3.5-5.1) mmol/L Chloride 101 (98-107) mmol/L Carbon Dioxide 26 (22-30) mmol/L BUN 17 (9-20) mg/dL Creatinine 0.96 (0.66-1.25) mg/dL Glucose 98 (74-99) mg/dL Calcium 9.1 (8.4-10.2) mg/dL AST 26 (17-59) U/L ALT 23 (21-72) U/L Alkaline Phosphatase 44 (38-126) U/L Total Protein 7.0 (6.3-8.2) g/dL Albumin 4.0 (3.5-5.0) g/dL Current Medications Generic Name Dose Route Start Last Admin Trade Name Freq PRN Reason Stop Dose Admin Acetaminophen 650 mg 06/22/18 08:53 06/22/18 08:57 Tylenol Tab PO 650 mg Q6HR PRN Administration Fever and/ or Mild Pain Aspirin 325 mg 06/22/18 09:00 06/22/18 08:54 Aspirin PO Not Given DAILY [facility] Atorvastatin Calcium 10 mg 06/22/18 09:00 06/22/18 08:46 Lipitor PO Not Given Q48H [facility] Isosorbide Mononitrate 30 mg 06/22/18 10:00 06/22/18 10:08 Imdur PO 30 mg DAILY [facility] Administration Losartan Potassium 50 mg 06/21/18 21:45 06/22/18 08:52 Cozaar PO 50 mg DAILY [place] Administration Nitroglycerin 0.4 mg 06/21/18 19:02 Nitrostat SUBLINGUAL Q5M PRN Chest Pain Pantoprazole Sodium 40 mg 06/21/18 21:45 06/21/18 22:01 Protonix PO 40 mg HS [place]IS[place] Administration Intake and Output 06/21/18 06/22/18 06/22/18 22:59 06:59 14:59 Intake Total 1000 700 Balance 1000 700 Intake: Amount of Fluid Infused ( 1000 ml) Intake, IV Titration 700 Amount Sodium Chloride 0.9% 1, 700 000 ml @ 100 mls/hr IV . Q10H STA Rx#:[id number] Other: Voiding Method Toilet Toilet Toilet # Voids 1 3 Weight 87.8 kg 06/21/18 17:00 06/21/18 17:00
[2018-06-22 11:32] VITALS: BP 136/67; PULSE 58; TEMP 97.7
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
== END 2018-06-22 13:50 | disposition home or self-care (01) ==
LOC: EC 16:44 → 1SOBS 19:02
PROVIDERS: ADMIT Internal Medicine Geriatric Medicine; ATTEND Internal Medicine Geriatric Medicine
DX: R07.2 Precordial pain (principal); R05 Cough; R49.0 Dysphonia; R06.02 Shortness of breath; R00.1 Bradycardia, unspecified; R61 Generalized hyperhidrosis; I10 Essential (primary) hypertension; E78.5 Hyperlipidemia, unspecified; K21.9 Gastro-esophageal reflux disease without esophagitis; M19.90 Unspecified osteoarthritis, unspecified site; I08.3 Combined rheumatic disorders of mitral, aortic and tricuspid valves; I48.0 Paroxysmal atrial fibrillation; I27.20 Pulmonary hypertension, unspecified; R41.3 Other amnesia; I25.10 Atherosclerotic heart disease of native coronary artery without angina pectoris; E66.9 Obesity, unspecified; Z68.28 Body mass index [BMI] 28.0-28.9, adult; Z95.1 Presence of aortocoronary bypass graft; Z95.5 Presence of coronary angioplasty implant and graft; Z85.46 Personal history of malignant neoplasm of prostate; Z92.3 Personal history of irradiation; Z87.891 Personal history of nicotine dependence; Z87.01 Personal history of pneumonia (recurrent); Z79.01 Long term (current) use of anticoagulants; Z79.899 Other long term (current) drug therapy; Z88.0 Allergy status to penicillin; Z88.2 Allergy status to sulfonamides; Z88.7 Allergy status to serum and vaccine; Z82.5 Family history of asthma and other chronic lower respiratory diseases
CPT/HCPCS: 96361 ×3; 96360; 99291; 36415; 93005; 85379; 83880; 80061; 80053; 83690; 83735; 84484 ×2; 85025; 85610; 85730; 71046; G0378 ×2

== ENCOUNTER 2018-11-16 15:18 | Emergency (ER) | payer OTHER, MEDICARE ==
[2018-11-16 15:38] VITALS: RESP 18; TEMP 98
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
[2018-11-16 18:04] VITALS: BP 154/72; PULSE 72
== END 2018-11-16 18:02 | disposition home or self-care (01) ==
LOC: EC 15:18
DX: S80.11XA Contusion of right lower leg, initial encounter (principal); S80.12XA Contusion of left lower leg, initial encounter; S60.222A Contusion of left hand, initial encounter; I48.91 Unspecified atrial fibrillation; I25.119 Atherosclerotic heart disease of native coronary artery with unspecified angina pectoris; K21.9 Gastro-esophageal reflux disease without esophagitis; E78.5 Hyperlipidemia, unspecified; I10 Essential (primary) hypertension; Z87.891 Personal history of nicotine dependence; Z88.0 Allergy status to penicillin; Z88.2 Allergy status to sulfonamides; Z88.7 Allergy status to serum and vaccine; Z79.01 Long term (current) use of anticoagulants; Z79.899 Other long term (current) drug therapy; Z85.46 Personal history of malignant neoplasm of prostate; Z92.3 Personal history of irradiation; Z98.890 Other specified postprocedural states; Z95.1 Presence of aortocoronary bypass graft; Z95.5 Presence of coronary angioplasty implant and graft; Z82.49 Family history of ischemic heart disease and other diseases of the circulatory system; V43.52XA Car driver injured in collision with other type car in traffic accident, initial encounter; W22.11XA Striking against or struck by driver side automobile airbag, initial encounter; Y92.410 Unspecified street and highway as the place of occurrence of the external cause
CPT/HCPCS: 99284

== ENCOUNTER → 2021-11-24 | Outpatient (CLI) | payer MEDICARE ==
[2021-11-24 13:51] LABS: Potassium 4.1 mmol/L (3.5-5.1)
[2021-11-24 14:01] LABS: HCT 30.7 % (39.0-53.0); HGB 9.4 gm/dL (13.0-17.5); Hypochromasia Marked; MCH 25.6 pg (25.0-35.0); MCHC 30.7 g/dL (31.0-37.0); MCV 83.3 fL (80.0-100.0); Mean Platelet Volume 7.9; Platelet Count 213 k/uL (150-450); RBC 3.69 m/uL (4.30-5.90); WBC 6.2 k/uL (3.8-10.6)
== END | disposition home or self-care (01) ==
LOC: LABPAT 12:54
PROVIDERS: ATTEND Internal Medicine Interventional Cardiology
DX: Z01.812 Encounter for preprocedural laboratory examination (principal); I35.0 Nonrheumatic aortic (valve) stenosis
CPT/HCPCS: 36415; 80051; 82565; 84520; 85027

== ENCOUNTER 2022-11-17 06:39 | Day surgery (SDC) | payer MEDICARE ==
[2022-11-12 14:46] VITALS: BMI 26.9
[~2022-11-17 06:39] MED LIST: ALPRAZolam 0.25 MG TAB PO PRN; ALPRAZolam 0.5 MG TAB PO PRN; NITROGLYCERIN SL TABS 0.4 MG TAB SUBLINGUAL PRN
[2022-11-17] MEDS ORDERED: ASPIRIN 325 MG TAB PO ONE (07:00)
[2022-11-17] MEDS: SODIUM CHLORIDE 0.9% 1,000 ML in EMPTY BAG 1 BAG IV SCH ×2 (08:19→21:32)
[2022-11-17] MEDS ORDERED: LIDOCAINE 1% INJ 10MG/ML (20 ML MDV) ONE (09:06)
[2022-11-17] MEDS ORDERED: MIDAZOLAM 2 MG/2 ML VIAL IVP ONE (09:43)
[2022-11-17] MEDS ORDERED: LIDOCAINE 1% INJ 10MG/ML (20 ML MDV) SQ ONE (09:48)
[2022-11-17] MEDS ORDERED: HYDROmorphone 0.5 MG/0.5 ML SYRINGE IVP ONE (10:13)
[2022-11-17] MEDS ORDERED: HEPARIN SODIUM 1,000 UN/ML (10ML VL) ONE (10:17)
[2022-11-17] MEDS: HEPARIN SODIUM 1,000 UN/ML (10ML VL) IV ONE ×2 (10:18→10:37)
[2022-11-17] MEDS ORDERED: IOPAMIDOL-370 100ML BTL INJ ONE ×2 (10:30→11:39)
[2022-11-17] MEDS: NITROGLYCERIN 1000MCG/10ML SYRINGE INTRACORON ONE ×2 (11:08→11:14)
[2022-11-17] MEDS ORDERED: CLOPIDOGREL 75 MG TAB ONE (11:28)
[2022-11-17] MEDS ORDERED: CLOPIDOGREL 75 MG TAB PO ONE (11:39)
[2022-11-17] MEDS ORDERED: NITROGLYCERIN SL TABS 0.4 MG TAB SUBLINGUAL PRN (11:51)
[2022-11-17] MEDS ORDERED: MAG HYDROX/AL HYDROX/SIMETH 30 ML CUP PO PRN (11:51)
[2022-11-17] MEDS ORDERED: ATROPINE SULFATE 0.1 MG/ML 10ML SYRINGE IV PRN (11:51)
[2022-11-17] MEDS ORDERED: RX INFO: IV CONTRAST WAS GIVEN 1 EACH MISC MISCELLANE PRN (11:51)
[2022-11-17] MEDS ORDERED: ZOLPIDEM 5 MG TAB PO PRN (11:51)
--- NOTE | 2022-11-17 13:16 | CC ---
CARDIAC CATHETERIZATION REPORT PROCEDURES PERFORMED: 1. Left heart catheterization and coronary angiography. 2. PTCA and stenting of proximal obtuse marginal and mid circumflex with a drug- eluting stent. 3. Shockwave lithotripsy of circumflex coronary artery. 4. Intravascular ultrasound of circumflex coronary artery. 5. IFR assessment of right coronary artery lesion. PERFORMED BY: Dr. Janice Rhoades. ANESTHESIA: Moderate conscious sedation time was 108 minutes. Patient was administered Versed. He also received some Dilaudid. Oxygen saturation, hemodynamics and EKG were monitored closely. CLINICAL INFORMATION: Mr. Shubham Landa is an 87-year-old remarkably active gentleman with a history of aortocoronary bypass surgery performed several years ago with a PEARSON to LAD and 2 vein grafts to the diagonal and obtuse marginal. This was in 1995. Since then 2 of the vein grafts were occluded. He has had recurrent angina and I performed the stenting of the ostium of the obtuse marginal and proximal portion of obtuse marginal and his right coronary artery was dominant but never intervened and was heavily calcified. His last intervention was performed by me in 2016 and at that time, I performed the obtuse marginal intervention with a 2.5 caliber drug-eluting stent. In November 2021, I attempted procedure from the left radial, but I had difficulty crossing the tight stenosis with a balloon and therefore, I pursued medical therapy. He has been having recurrent angina and therefore, I advised a repeat procedure from right femoral approach. He has a very tortuous iliac system. He also has paroxysmal atrial fib and [id number] aortic stenosis and last transesophageal echo by planimetry was 1.1 cm2. He also has been having increasing shortness of breath. Possibility of worsening aortic stenosis as well as circumflex intervention was considered and he was brought in for the procedure electively. PROCEDURE NOTE: Under local anesthesia and strict aseptic precautions, a 6-Azeri introducer was placed in the right femoral artery. Over a guidewire, I advanced and positioned a long sheath because of tortuosity in the iliac system. Using standard Aung catheters, I performed coronary angiography and right catheter was used to check LV pressures, but LV-gram was not performed. Following this, I performed intervention of the circumflex lesion as well as into the obtuse marginal. There was a 95% stenosis with calcification. I then performed intravascular ultrasound and also shockwave lithotripsy of circumflex. I performed IFR assessment of RCA. Following this, the sheath was taken out and exchanged to a short sheath and then the short sheath was taken out, and Angio-Seal device used to secure hemostasis. The patient tolerated the procedure well without complications. His ACT during the procedure was kept between 249 and 299. At the end of the procedure, ACT was 252. He received 300 mg of Plavix and he will be on Plavix and Eliquis combination without interruption for 1 year at least. He will be on aspirin for the first couple of weeks along with Plavix and Eliquis 2.5 mg b.i.d. CARDIAC CATHETERIZATION FINDINGS: The left ventricular end-diastolic pressure was 10 mmHg with a pullback gradient of 32 mmHg across aortic valve which transits to [id number] aortic stenosis. CORONARY ANGIOGRAPHY FINDINGS: Right coronary artery is a large dominant vessel, has moderate to heavy calcification. Mid to distal portion before bifurcation, there is a 50% to 55% narrowing and the vessel bifurcates into the PDA and PLV. There is moderate diffuse disease in both the branches, but no critical stenosis is noted. The PLV has about a 60% narrowing distally. However, the RCA lesion is about 55% in multiple views and this seems to be the same as before, but no worse. RCA provides collaterals to the groove branch and circumflex as well as distal circumflex branches. Left main coronary artery: Patent vessel. No significant disease. Distally, it has some 50-60% disease and gives off LAD and circumflex. The distal left main extending into the proximal obtuse marginal has a proximal circumflex. The distal left main extending to proximal circumflex has about a 50% to 60% narrowing. Left anterior descending coronary artery: Totally occluded after diagonal branch and diagonal branches is tortuous, has minor diffuse disease. Left posterior circumflex coronary artery: Nondominant vessel, high first obtuse marginal, has a previous stent and within the stent there was a 95% stenosis and stenosis seems to extend into the proximal circumflex. The groove branch also has disease, but it is collateralized from the right coronary artery. There is also a second obtuse marginal that is small in caliber and has no significant intrinsic disease. However, the stent in the circumflex marginal that extends into the proximal circumflex and distal left main seems to impinge the flow in the groove branch as well. There is a significant 95% circumflex marginal stenosis. Left ventriculogram was not performed. I performed the left internal mammary injection at the end of the procedure with a Tae catheter and PEARSON was widely patent with remarkably good flow in the LAD system which has mild diffuse disease. INTERVENTION PROCEDURE IN DETAIL: I used a Voda 3.5 left guide catheter to cannulate the left coronary artery. With a SuperCross 45-degree and a long run-through wire, I crossed the tight lesion in the circumflex marginal and kept the wire distally. I dilated the restenotic lesion in the circumflex marginal with a 1.5 caliber NC Trek balloon and then went up to a 2.25 caliber NC Trek balloon and eventually a 3.0 caliber NC Trek balloon. There was heavy calcification. I then advanced a shockwave balloon and performed coronary lithotripsy and I did 2 passes. Decent result was achieved. I then deployed a 15 mm long 3.0 caliber Xience stent that started in the proximal circumflex and extended into the obtuse marginal branch. Excellent angiographic result was achieved. I performed intravascular ultrasound and noted that there was a full expansion of the stent with a good apposition. I then took the guide catheter out and used a standard right Aung guide catheter and performed IFR of a mid lesion in the RCA which was a 55% lesion. IFR was 0.98. Appropriate calibration was performed before. The patient tolerated procedure well. Excellent angiographic result without complication was achieved. He was given 300 mg of Plavix and he will be on Plavix and Eliquis combination uninterrupted for 1 year. RECOMMENDATIONS: I recommended PCI off first obtuse marginal and proximal circumflex and also IFR of RCA and proceeded to perform in the same setting. MMODL / IJN: [id number] /
[2022-11-17] MEDS: SODIUM CHLORIDE 0.9% 1,000 ML IV SCH (14:14)
[2022-11-17] MEDS ORDERED: ATORVASTATIN 40 MG TAB PO SCH (21:00)
[2022-11-17] MEDS: APIXABAN 2.5 MG TABLET PO SCH (21:28)
[2022-11-17] MEDS: METOPROLOL TARTRATE 12.5 MG TAB PO SCH (21:28)
[2022-11-18] MEDS: SODIUM CHLORIDE 0.9% 1,000 ML IV SCH (01:18)
[2022-11-18 03:41] VITALS: RESP 16
[2022-11-18 05:41] LABS: Basophils % (A) 0 %; Eosinophils # (A) 0.1 k/uL (0-0.7); Eosinophils % (A) 1 %; HCT 34.5 % (39.0-53.0); HGB 11.7 gm/dL (13.0-17.5); Lymphocytes # (A) 1.1 k/uL (1.0-4.8); Lymphocytes % (A) 11 %; MCH 30.8 pg (25.0-35.0); MCV 90.8 fL (80.0-100.0); Mean Platelet Volume 8.8; Monocytes # (A) 0.5 k/uL (0-1.0); Monocytes % (A) 5 %; Neutrophils # (A) 8.3 k/uL (1.3-7.7); Neutrophils % (A) 81 %; Platelet Count 159 k/uL (150-450); RBC 3.79 m/uL (4.30-5.90); RDW 13.5 % (11.5-15.5); WBC 10.2 k/uL (3.8-10.6)
[2022-11-18 05:53] LABS: African American GFR (CKD) 70 (>60 ml/min/1.73 sqM); Anion Gap 6 mmol/L; Blood Urea Nitrogen 16 mg/dL (9-20); Carbon Dioxide 24 mmol/L (22-30); Chloride 104 mmol/L (98-107); Glucose 110 mg/dL (74-99); Non-African American GFR(CKD) 61 (>60 ml/min/1.73 sqM); Potassium 4.2 mmol/L (3.5-5.1); Sodium 134 mmol/L (137-145)
[2022-11-18] MEDS: SODIUM CHLORIDE 0.9% 1,000 ML in EMPTY BAG 1 BAG IV SCH (06:14)
[2022-11-18 07:36] VITALS: BP 164/62; PULSE 57; TEMP 98.1
[2022-11-18] MEDS ORDERED: CLOPIDOGREL 75 MG TAB PO SCH (09:00)
[2022-11-18] MEDS ORDERED: ISOSORBIDE MONONITRATE ER 30 MG TAB.ER.24H PO SCH (09:00)
[2022-11-18] MEDS ORDERED: LOSARTAN 50 MG TAB PO SCH (09:00)
[2022-11-18] MEDS ORDERED: ASPIRIN 81 MG PO SCH (09:00)
[2022-11-18] MEDS: METOPROLOL TARTRATE 12.5 MG TAB PO SCH (09:24)
[2022-11-18] MEDS: APIXABAN 2.5 MG TABLET PO SCH (09:24)
--- NOTE | 2022-11-18 09:41 | DS ---
DISCHARGE SUMMARY DIAGNOSES: 1. Unstable angina. 2. Moderate aortic stenosis. 3. History of CAD with prior bypass surgery. Mr. Landa was brought into the hospital for elective PCI of circumflex which was performed uneventfully yesterday. I also performed IFR of RCA moderate lesion which was insignificant. PEARSON to LAD was patent. His right groin is clean and dry. He is asymptomatic. EKG and labs are good. We will increase activity and discharge him today, and I will see him in the office next Wednesday. Discharge instructions regarding activity, medications were given. The patient will follow up with me next Wednesday. Physical exam did not reveal any new significant findings. Vitals are stable, JVD is not evident. S1, S2 heard normally. Ejection systolic murmur is audible at the base. Second heart sound is fairly well preserved. Lungs are clear. Abdomen is soft. Right groin is clean and dry. Rest of physical exam unchanged. MMODL / IJN: [id number] /
== END 2022-11-18 10:36 | disposition home or self-care (01) ==
LOC: CATHCVL 06:39 → 6NMEDSUR 11:35 → CATHCVL 11-18 10:36
PROVIDERS: ATTEND Internal Medicine Interventional Cardiology
DX: I25.110 Atherosclerotic heart disease of native coronary artery with unstable angina pectoris (principal); I35.0 Nonrheumatic aortic (valve) stenosis; I10 Essential (primary) hypertension; I48.0 Paroxysmal atrial fibrillation; Z95.1 Presence of aortocoronary bypass graft; Z95.5 Presence of coronary angioplasty implant and graft; Z88.0 Allergy status to penicillin; Z88.2 Allergy status to sulfonamides; Z88.7 Allergy status to serum and vaccine; Z79.01 Long term (current) use of anticoagulants; Z79.02 Long term (current) use of antithrombotics/antiplatelets; Z79.899 Other long term (current) drug therapy
CPT/HCPCS: 93571; 92978; 93459; 0715T; 80048; 85025; C9600; C1760; C1887 ×3; C1769 ×4; C1894 ×2; C1753; C1874; C1761; C1725 ×3; J2250; J2001; J1644; J1170; Q9967; J2305

== ENCOUNTER → 2022-12-31 | Outpatient (CLI) | payer MEDICARE ==
--- NOTE | 2022-12-31 15:39 | US ---
EXAMINATION TYPE: US kidneys/renal and bladder DATE OF EXAM: 12/31/2022 COMPARISON: NONE CLINICAL INDICATION: Male, 87 years old with history of R31.0 GROSS HEMATURIA; gross hematuria, patie nt performs a self cath 3-4 times a day EXAM MEASUREMENTS: Right Kidney: 11.1 x 5.2 x 4.3 cm Left Kidney: 11.5 x 5.4 x 4.1 cm Technical limitations due to large amount of overlying bowel gas Right Kidney: no evidence of hydronephrosis Left Kidney: anechoic lesion upper/mid pole = 2.6 x 2.4 x 2.3cm Bladder: appears wnl as visualized Bilateral Jets seen: no There is no evidence for hydronephrosis at this point in time. No nephrolithiasis is seen. No solid masses are identified. Thin-walled left renal upper/mid pole cyst. Cortical medullary differentiatio n is maintained bilaterally. The urinary bladder is anechoic. Bilateral ureteral jets are not seen. IMPRESSION: Limited exam due to overlying bowel gas. 1. No hydronephrosis or nephrolithiasis. 2. Left renal simple cyst.
== END | disposition home or self-care (01) ==
LOC: RADUSWWP 14:44
PROVIDERS: ATTEND Urology
DX: N28.1 Cyst of kidney, acquired (principal); R31.0 Gross hematuria
CPT/HCPCS: 76770

== ENCOUNTER → 2023-05-05 | Outpatient (CLI) | payer MEDICARE ==
--- NOTE | 2023-05-06 15:39 | US ---
EXAMINATION TYPE: US carotid duplex BILAT DATE OF EXAM: 05/05/2023 COMPARISON: NONE CLINICAL INDICATION: Male, 87 years old with history of I65.2 OCCLUSION AND STENOSIS OF UNSPECIFIED C AROTI; TECHNIQUE: Carotid duplex ultrasound examination. Indirect Doppler criteria was utilized. FINDINGS: EXAM MEASUREMENTS: RIGHT: Peak Systolic Velocity (PSV) cm/sec ----- Right CCA: 77.9 ----- Right ICA: 134.6 ----- Right ECA: 81.2 ICA/CCA ratio: 1.7 RIGHT: End Diastole cm/sec ----- Right CCA: 0 ----- Right ICA: 25.6 ----- Right ECA: 0 LEFT: Peak Systolic Velocity (PSV) cm/sec ----- Left CCA: 75.4 ----- Left ICA: 150.8 ----- Left ECA: 95 ICA/CCA ratio: 2.0 LEFT: End Diastole cm/sec ----- Left CCA: 17.3 ----- Left ICA: 23 ----- Left ECA: 0 VERTEBRALS (direction of flow): Right Vertebral: Antegrade Left Vertebral: Antegrade Rhythm: Normal [employer] NOTES: No significant stenosis seen IMPRESSION: Moderate atherosclerotic change at the bilateral carotid bifurcations but with measurements suggestin g mild, less than 50% proximal ICA stenosis on either side. Criteria for Assigning % of Stenosis / Diameter reduction (Estimation based on the indirect measurements of the internal carotid artery velocities (ICA PSV). 1. Normal (no stenosis)=ICA PSV < 125 cm/s: ratio < 2.0: ICA EDV<40 cm/s. 2. Less than 50% stenosis=ICA PSV < 125 cm/s: ratio < 2.0: ICA EDV<40 cm/s. 3. 50 to 69% stenosis=ICA PSV of 125 to 230 cm/s: ration 2.0 ? 4.0: ICA EDV 40-100 cm/s. 4. Greater than 70% stenosis to near occlusion= ICA PSV > 230 cm/s: ratio > 4.0: ICA EDV > 100 cm/s. 5. Near occlusion= ICA PSV velocities may be low or undetectable: variable ratio and ICA EDV. 6. Total occlusion=unable to detect flow.
== END | disposition home or self-care (01) ==
LOC: RADUSWWP 13:10
PROVIDERS: ATTEND Family Medicine
DX: I65.29 Occlusion and stenosis of unspecified carotid artery (principal)
CPT/HCPCS: 93880

== ENCOUNTER 2023-08-16 20:44 | Inpatient (IN) | payer MEDICARE ==
[2023-08-16 21:48] LABS: Basophils # (A) 0.1 k/uL (0-0.2); Basophils % (A) 1 %; Eosinophils # (A) 0.3 k/uL (0-0.7); Eosinophils % (A) 4 %; HCT 27.9 % (39.0-53.0); HGB 8.6 gm/dL (13.0-17.5); Lymphocytes % (A) 23 %; MCHC 30.9 g/dL (31.0-37.0); MCV 90.8 fL (80.0-100.0); Mean Platelet Volume 8.6; Monocytes # (A) 0.5 k/uL (0-1.0); Monocytes % (A) 6 %; Neutrophils # (A) 5.3 k/uL (1.3-7.7); Neutrophils % (A) 63 %; Platelet Count 214 k/uL (150-450); RBC 3.08 m/uL (4.30-5.90); RDW 15.6 % (11.5-15.5); WBC 8.4 k/uL (3.8-10.6)
[2023-08-16 22:00] LABS: ALT 14 U/L (4-49); AST 24 U/L (17-59); African American GFR (CKD) 80 (>60 ml/min/1.73 sqM); Albumin 3.8 g/dL (3.5-5.0); Alkaline Phosphatase 51 U/L (38-126); Blood Urea Nitrogen 18 mg/dL (9-20); Calcium 9.3 mg/dL (8.4-10.2); Carbon Dioxide 19 mmol/L (22-30); Chloride 103 mmol/L (98-107); Glucose 136 mg/dL (74-99); Magnesium 1.8 mg/dL (1.6-2.3); Non-African American GFR(CKD) 70 (>60 ml/min/1.73 sqM); Total Bilirubin 0.3 mg/dL (0.2-1.3); Total Protein 6.7 g/dL (6.3-8.2)
[2023-08-16 22:08] LABS: NT-Pro-B-Type Natriuretic Pept 5010 pg/mL
[2023-08-16 22:09] LABS: Anion Gap 10 mmol/L; Potassium 3.9 mmol/L (3.5-5.1); Sodium 132 mmol/L (137-145)
[2023-08-16 22:13] LABS: Partial Thromboplastin Time 29.4 sec (22.0-30.0)
[2023-08-16] MEDS: HYDROmorphone 1 MG/ML 1 ML SYRINGE IVP STA (22:45)
--- NOTE | 2023-08-17 00:18 | ED ---
General Adult HPI - General Chief complaint: Urogenital Stated complaint: Urinary retention Time Seen by Provider: 08/16/23 21:00 Source: patient, EMS Mode of arrival: EMS - History of Present Illness Initial comments: 87-year-old male with past medical history of prostate cancer who presents to the emergency department with urinary retention. Patient states that he had a Turcios catheter in place which was removed this morning by Dr. Landis. He was sent home with equipment to self cath. States that he cathed at home and shortly after developed bright red blood in his urine. Patient then began having some suprapubic pain. He attempted to cath again however he was only able to get out some blood clots. Patient then called EMS for evaluation. Upon arrival patient states that he has had some chest pain over the past couple of days. Admits to exertional shortness of breath. Patient does have a history of coronary disease and valvular disease. Patient was on Eliquis however after he developed hematuria, it was discontinued 1 week ago. Patient is still taking Plavix. He denies fevers or chills. Denies that his straight cath was traumatic. No other alleviating, precipitating modifying factors - Related Data Home Medications Medication Instructions Recorded Confirmed Ubidecarenone [Co Q-10] 200 mg PO DAILY 07/26/16 08/17/23 Pantoprazole [Protonix] 40 mg PO HS 09/06/17 08/17/23 [place]-3/Dha/Epa/Fish Oil [Fish Oil 1 cap PO DAILY 11/16/18 08/17/23 500 mg Softgel] Acetaminophen Tab [Tylenol] 500 mg PO Q6HR PRN 11/12/22 08/17/23 Ipratropium-Albuterol Nebulize 3 ml INHALATION RT-BID 11/12/22 08/17/23 [Duoneb 0.5 mg-3 mg/3 ml Soln] ALPRAZolam [Xanax] 0.25 mg PO HS 08/17/23 08/17/23 Skvp-Nyto-Woty 1 tab PO HS 08/17/23 08/17/23 Prevagen 1 cap PO DAILY 08/17/23 08/17/23 Rosuvastatin Calcium [Crestor] 5 mg PO Q48H 08/17/23 08/17/23 Previous Rx's Medication Instructions Recorded Aspirin 81 mg PO DAILY #7 tab 11/18/22 Atorvastatin [Lipitor] 40 mg PO DAILY 90 Days #90 tab 08/24/23 Isosorbide Mononitrate ER [Imdur] 15 mg PO DAILY 90 Days #90 tab 08/24/23 Metoprolol Tartrate [Lopressor] 25 mg PO BID 90 Days #180 tab 08/24/23 Nitroglycerin Sl Tabs [Nitrostat] 0.4 mg SUBLINGUAL Q5M PRN 90 Days 08/24/23 #1000 tab Oxybutynin Xl [Ditropan XL] 5 mg PO DAILY 30 Days #30 tab 08/24/23 Allergies Allergy/AdvReac Type Severity Reaction Status Date / Time Penicillins Allergy Rash/Hives Verified 08/17/23 08:22 Sulfa (Sulfonamide Allergy Rash/Hives Verified 08/17/23 08:22 Antibiotics) tetanus and diphtheria Allergy Rash/Hives/ Verified 08/17/23 08:22 toxoids Blisters Review of Systems ROS Statement: Those systems with pertinent positive or pertinent negative responses have been documented in the HPI. ROS Other: All systems not noted in ROS Statement are negative. Past Medical History Past Medical History: Atrial Fibrillation, Coronary Artery Disease (CAD), Canc er, Chest Pain / Angina, GERD/Reflux, Hyperlipidemia, Hypertension, Osteoarthritis (OA), Pneumonia, Prostate Disorder Additional Past Medical History / Comment(s): prostate CA-radiation (2006) , self caths since radiation tx to prostate, aortic stenosis., See Cardiology H & P. History of Any Multi-Drug Resistant Organisms: None Reported Past Surgical History: Coronary Bypass/CABG, Heart Catheterization With Stent, Prostate Surgery Additional Past Surgical History / Comment(s): Angioplasty, heart cath (Nov 2021), Heart caths with stents, 2011, 2016 Past Anesthesia/Blood Transfusion Reactions: No Reported Reaction, Motion Sickness Date of Last Stent Placement:: 2016 Past Psychological History: Anxiety, Depression Smoking Status: Former smoker Past Alcohol Use History: Occasional Past Drug Use History: None Reported - Past Family History Brother(s) Family Medical History: Cancer, Coronary Artery Disease (CAD), Prostate Disorder Additional Family Medical History / Comment(s): Patient has a total of 4 brothers all with history of coronary artery disease. Sister(s) Family Medical History: Cancer, Coronary Artery Disease (CAD) Additional Family Medical History / Comment(s): . Father Family Medical History: Congestive Heart Failure (CHF), Coronary Artery Disease (CAD), Respiratory Disorder Additional Family Medical History / Comment(s): Father at age 76 from coronary artery disease with history of emphysema. Mother Family Medical History: Congestive Heart Failure (CHF), Myocardial Infarction (OR) Additional Family Medical History / Comment(s): Mother at age 50 from a myocardial infarction. Daughter(s) Family Medical History: No Reported History Additional Family Medical History / Comment(s): . General Exam General appearance: alert, in distress (in pain) Head exam: Present: atraumatic, normocephalic, normal inspection Eye exam: Present: normal appearance, PERRL, EOMI. Absent: scleral icterus, conjunctival injection, periorbital swelling ENT exam: Present: normal exam, mucous membranes moist Neck exam: Present: normal inspection. Absent: tenderness, meningismus, lymphadenopathy Respiratory exam: Present: normal lung sounds bilaterally. Absent: respiratory distress, wheezes, rales, rhonchi, stridor Cardiovascular Exam: Present: regular rate, normal rhythm, normal heart sounds. Absent: systolic murmur, diastolic murmur, rubs, gallop, clicks GI/Abdominal exam: Present: distended, tenderness, guarding, normal bowel sounds. Absent: rebound, rigid Extremities exam: Present: normal inspection, full ROM, normal capillary refill. Absent: tenderness, pedal edema, joint swelling, calf tenderness Back exam: Present: normal inspection Neurological exam: Present: alert, oriented X3, CN II-XII intact Psychiatric exam: Present: normal affect, normal mood Skin exam: Present: warm, dry, intact, normal color. Absent: rash Course Vital Signs 08/16/23 08/16/23 08/16/23 20:47 21:27 22:47 Temperature 97.1 F L Pulse Rate 65 70 85 Respiratory 18 19 19 Rate Blood Pressure 185/81 163/65 181/95 O2 Sat by Pulse 100 98 100 Oximetry 08/17/23 08/17/23 08/17/23 00:56 06:00 07:49 Temperature Pulse Rate 72 87 98 Respiratory 18 18 18 Rate Blood Pressure 125/65 137/100 117/73 O2 Sat by Pulse 95 98 100 Oximetry 08/17/23 08/17/23 08/17/23 11:39 12:37 15:37 Temperature Pulse Rate 79 81 79 Respiratory 18 18 18 Rate Blood Pressure 125/74 124/53 116/69 O2 Sat by Pulse 100 98 96 Oximetry 08/17/23 08/17/23 17:00 18:20 Temperature 97 F L Pulse Rate 73 85 Respiratory 18 18 Rate Blood Pressure 130/72 133/63 O2 Sat by Pulse 96 92 L Oximetry Medical Decision Making - Medical Decision Making Was pt. sent in by a medical professional or institution (, PA, PYTHON PROGRAMMER, urgent care, hospital, or assisted...) When possible be specific @ -No Did you speak to anyone other than the patient for history (EMS, parent, family, police, friend...)? What history was obtained from this source @ -Spoke with EMS and for history Did you review nursing and triage notes (agree or disagree)? Why? @ -I reviewed and agree with nursing and triage notes Were old charts reviewed (outside hosp., previous admission, EMS record, old EKG, old radiological studies, urgent care reports/EKG's, assisted records)? Report findings @ -No old charts were reviewed Differential Diagnosis (chest pain, altered mental status, abdominal pain women, abdominal pain men, vaginal bleeding, weakness, fever, dyspnea, syncope, headache, dizziness, GI bleed, back pain, seizure, CVA, palpatations, mental health, musculoskeletal)? @ -Differential Abdominal Pain Men: Appendicitis, cholecystitis, diverticulosis, ischemic bowel, pancreatitis, hepatitis, UTI, gastroenteritis, AAA, incarcerated hernia, bowel obstruction, constipation, inflammatory bowel, hepatitis, peptic ulcer disease, splenic infarction, perforated viscus, testicular torsion, this is not meant to be an all-inclusive list EKG interpreted by me (3pts min.). @ -Yes and demonstrates sinus bradycardia with a rate of 59. WI interval 220. QRS 95. QTc of 455. Mild ST depression V4 through V6. No acute ST segment elevation X-rays interpreted by me (1pt min.). @ -Yes and demonstrates no acute process CT interpreted by me (1pt min.). @ -None done U/S interpreted by me (1pt. min.). @ -None done What testing was considered but not performed or refused? (CT, X-rays, U/S, labs)? Why? @ -None What meds were considered but not given or refused? Why? @ -None Did you discuss the management of the patient with other professionals (professionals i.e. , PA, PYTHON PROGRAMMER, lab, RT, psych nurse, health social work professor, service writer advisor, teacher, president and chief executive officer, case resource manager)? Give summary @ -Spoke with Dr. Mott for admission Was smoking cessation discussed for >3mins.? @ -No Was critical care preformed (if so, how long)? @ -No Were there social determinants of health that impacted care today? How? (Homelessness, low income, unemployed, alcoholism, drug addiction, transportation, low edu. Level, literacy, decrease access to med. care, fdc, rehab)? @ -No Was there de-escalation of care discussed even if they declined (Discuss DNR or withdrawal of care, Hospice)? DNR status @ -No What co-morbidities impacted this encounter? (DM, HTN, Smoking, COPD, CAD, Cancer, CVA, ARF, Chemo, Hep., AIDS, mental health diagnosis, sleep apnea, morbid obesity)? @ -Coronary disease, urinary retention Was patient admitted / discharged? Hospital course, mention meds given and route, prescriptions, significant lab abnormalities, going to OR and other pertinent info. @ -Upon arrival patient seen and evaluated in room 20. Thorough history and physical exam was performed. I did place an 18 [place] Turcios catheter. I recommended a 20 [place] however patient was adamantly refusing. 18 [place] was passed without issue. Patient has gross hematuria. Laboratory studies are conducted and results are discussed with the patient. I did recommend admission for continued flushing of the patient's catheter. It does clot after placement and therefore a 20 [place] was put in. Patient was agreeable to admission. Spoke with Dr. Hoffmann who will accept the patient Undiagnosed new problem with uncertain prognosis? @ -No Drug Therapy requiring intensive monitoring for toxicity (Heparin, Nitro, Insulin, Cardizem)? @ -No Were any procedures done? @ -No Diagnosis/symptom? 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 @ -Acute Uncomplicated (without systemic symptoms) or Complicated (systemic symptoms)? @ -Complicated Side effects of treatment? @ -No Exacerbation, Progression, or Severe Exacerbation? @ -No Poses a threat to life or bodily function? How? (Chest pain, [place], OR, pneumonia, PE, COPD, DKA, ARF, appy, cholecystitis, CVA, Diverticulitis, Homicidal, Suicidal, threat to staff... and all critical care pts) @ -No - Lab Data Result diagrams: 08/24/23 09:38 08/24/23 09:38 Lab Results 08/16/23 08/16/23 08/16/23 Range/Units 21:37 21:37 21:37 WBC 8.4 (3.8-10.6) k/uL RBC 3.08 L (4.30-5.90) m/uL Hgb 8.6 L (13.0-17.5) gm/dL Hct 27.9 L (39.0-53.0) % MCV 90.8 (80.0-100.0) fL MCH 28.0 (25.0-35.0) pg MCHC 30.9 L (31.0-37.0) g/dL RDW 15.6 H (11.5-15.5) % Plt Count 214 (150-450) k/uL MPV 8.6 Neutrophils % 63 % Lymphocytes % 23 % Monocytes % 6 % Eosinophils % 4 % Basophils % 1 % Neutrophils # 5.3 (1.3-7.7) k/uL Lymphocytes # 2.0 (1.0-4.8) k/uL Monocytes # 0.5 (0-1.0) k/uL Eosinophils # 0.3 (0-0.7) k/uL Basophils # 0.1 (0-0.2) k/uL Hypochromasia Anisocytosis PT 11.0 (10.0-12.5) sec INR 1.0 (<1.2) APTT 29.4 (22.0-30.0) sec Sodium 132 L (137-145) mmol/L Potassium 3.9 (3.5-5.1) mmol/L Chloride 103 (98-107) mmol/L Carbon Dioxide 19 L (22-30) mmol/L Anion Gap 10 mmol/L BUN 18 (9-20) mg/dL Creatinine 0.97 (0.66-1.25) mg/dL Est GFR (CKD-EPI)AfAm 80 (>60 ml/min/1.73 sqM) Est GFR (CKD-EPI)NonAf 70 (>60 ml/min/1.73 sqM) Glucose 136 H (74-99) mg/dL Calcium 9.3 (8.4-10.2) mg/dL Magnesium 1.8 (1.6-2.3) mg/dL Iron (65-175) UG/DL TIBC (228-460) UG/DL % Saturation (15.00-50.00) Transferrin (204.0-354.0) mg/dL Ferritin (22.0-322.0) ng/mL Total Bilirubin 0.3 (0.2-1.3) mg/dL AST 24 (17-59) U/L ALT 14 (4-49) U/L Alkaline Phosphatase 51 (38-126) U/L Troponin I (0.000-0.034) ng/mL NT-Pro-B Natriuret Pep 5010 pg/mL Total Protein 6.7 (6.3-8.2) g/dL Albumin 3.8 (3.5-5.0) g/dL Vitamin B12 (200.0-944.0) pg/mL Methylmalonic Acid (<0.40) umol/L RBC Folate (280 - 791) ng/mL Urine Color Urine Appearance (Clear) Urine RBC (0-5) /hpf Urine WBC (0-5) /hpf Urine Yeast (Budding) (None) /hpf Blood Type Blood Type Confirm Blood Type Recheck Bld Type Recheck Status Antibody Screen Crossmatch Spec Expiration Date 08/16/23 08/16/23 08/17/23 Range/Units 21:37 21:37 03:07 WBC (3.8-10.6) k/uL RBC (4.30-5.90) m/uL Hgb (13.0-17.5) gm/dL Hct (39.0-53.0) % MCV (80.0-100.0) fL MCH (25.0-35.0) pg MCHC (31.0-37.0) g/dL RDW (11.5-15.5) % Plt Count (150-450) k/uL MPV Neutrophils % % Lymphocytes % % Monocytes % % Eosinophils % % Basophils % % Neutrophils # (1.3-7.7) k/uL Lymphocytes # (1.0-4.8) k/uL Monocytes # (0-1.0) k/uL Eosinophils # (0-0.7) k/uL Basophils # (0-0.2) k/uL Hypochromasia Anisocytosis PT (10.0-12.5) sec INR (<1.2) APTT (22.0-30.0) sec Sodium (137-145) mmol/L Potassium (3.5-5.1) mmol/L Chloride (98-107) mmol/L Carbon Dioxide (22-30) mmol/L Anion Gap mmol/L BUN (9-20) mg/dL Creatinine (0.66-1.25) mg/dL Est GFR (CKD-EPI)AfAm (>60 ml/min/1.73 sqM) Est GFR (CKD-EPI)NonAf (>60 ml/min/1.73 sqM) Glucose (74-99) mg/dL Calcium (8.4-10.2) mg/dL Magnesium (1.6-2.3) mg/dL Iron (65-175) UG/DL TIBC (228-460) UG/DL % Saturation (15.00-50.00) Transferrin (204.0-354.0) mg/dL Ferritin (22.0-322.0) ng/mL Total Bilirubin (0.2-1.3) mg/dL AST (17-59) U/L ALT (4-49) U/L Alkaline Phosphatase (38-126) U/L Troponin I 0.129 H* 0.170 H* (0.000-0.034) ng/mL NT-Pro-B Natriuret Pep pg/mL Total Protein (6.3-8.2) g/dL Albumin (3.5-5.0) g/dL Vitamin B12 (200.0-944.0) pg/mL Methylmalonic Acid 0.22 (<0.40) umol/L RBC Folate 1,010 H (280 - 791) ng/mL Urine Color Urine Appearance (Clear) Urine RBC (0-5) /hpf Urine WBC (0-5) /hpf Urine Yeast (Budding) (None) /hpf Blood Type Blood Type Confirm Blood Type Recheck Bld Type Recheck Status Antibody Screen Crossmatch Spec Expiration Date 08/17/23 08/17/23 08/17/23 Range/Units 05:30 06:32 13:00 WBC 14.0 H (3.8-10.6) k/uL RBC 2.58 L (4.30-5.90) m/uL Hgb 7.3 L (13.0-17.5) gm/dL Hct 23.7 L (39.0-53.0) % MCV 91.7 (80.0-100.0) fL MCH 28.2 (25.0-35.0) pg MCHC 30.7 L (31.0-37.0) g/dL RDW 16.1 H (11.5-15.5) % Plt Count 229 (150-450) k/uL MPV 8.8 Neutrophils % 90 % Lymphocytes % 6 % Monocytes % 3 % Eosinophils % 0 % Basophils % 0 % Neutrophils # 12.6 H (1.3-7.7) k/uL Lymphocytes # 0.9 L (1.0-4.8) k/uL Monocytes # 0.4 (0-1.0) k/uL Eosinophils # 0.0 (0-0.7) k/uL Basophils # 0.0 (0-0.2) k/uL Hypochromasia Slight Anisocytosis Slight PT (10.0-12.5) sec INR (<1.2) APTT (22.0-30.0) sec Sodium (137-145) mmol/L Potassium (3.5-5.1) mmol/L Chloride (98-107) mmol/L Carbon Dioxide (22-30) mmol/L Anion Gap mmol/L BUN (9-20) mg/dL Creatinine (0.66-1.25) mg/dL Est GFR (CKD-EPI)AfAm (>60 ml/min/1.73 sqM) Est GFR (CKD-EPI)NonAf (>60 ml/min/1.73 sqM) Glucose (74-99) mg/dL Calcium (8.4-10.2) mg/dL Magnesium (1.6-2.3) mg/dL Iron (65-175) UG/DL TIBC (228-460) UG/DL % Saturation (15.00-50.00) Transferrin (204.0-354.0) mg/dL Ferritin (22.0-322.0) ng/mL Total Bilirubin (0.2-1.3) mg/dL AST (17-59) U/L ALT (4-49) U/L Alkaline Phosphatase (38-126) U/L Troponin I 0.222 H* (0.000-0.034) ng/mL NT-Pro-B Natriuret Pep pg/mL Total Protein (6.3-8.2) g/dL Albumin (3.5-5.0) g/dL Vitamin B12 (200.0-944.0) pg/mL Methylmalonic Acid (<0.40) umol/L RBC Folate (280 - 791) ng/mL Urine Color Red Urine Appearance Bloody (Clear) Urine RBC >182 H (0-5) /hpf Urine WBC 19 H (0-5) /hpf Urine Yeast (Budding) Many H (None) /hpf Blood Type Blood Type Confirm Blood Type Recheck Bld Type Recheck Status Antibody Screen Crossmatch Spec Expiration Date 08/17/23 08/17/23 08/17/23 Range/Units 13:00 13:00 13:00 WBC (3.8-10.6) k/uL RBC (4.30-5.90) m/uL Hgb (13.0-17.5) gm/dL Hct (39.0-53.0) % MCV (80.0-100.0) fL MCH (25.0-35.0) pg MCHC (31.0-37.0) g/dL RDW (11.5-15.5) % Plt Count (150-450) k/uL MPV Neutrophils % % Lymphocytes % % Monocytes % % Eosinophils % % Basophils % % Neutrophils # (1.3-7.7) k/uL Lymphocytes # (1.0-4.8) k/uL Monocytes # (0-1.0) k/uL Eosinophils # (0-0.7) k/uL Basophils # (0-0.2) k/uL Hypochromasia Anisocytosis PT (10.0-12.5) sec INR (<1.2) APTT (22.0-30.0) sec Sodium 132 L (137-145) mmol/L Potassium 4.4 (3.5-5.1) mmol/L Chloride 102 (98-107) mmol/L Carbon Dioxide 22 (22-30) mmol/L Anion Gap 8 mmol/L BUN 20 (9-20) mg/dL Creatinine 1.02 (0.66-1.25) mg/dL Est GFR (CKD-EPI)AfAm 75 (>60 ml/min/1.73 sqM) Est GFR (CKD-EPI)NonAf 65 (>60 ml/min/1.73 sqM) Glucose 197 H (74-99) mg/dL Calcium 8.8 (8.4-10.2) mg/dL Magnesium (1.6-2.3) mg/dL Iron 14 L (65-175) UG/DL TIBC 287 (228-460) UG/DL % Saturation 4.88 L (15.00-50.00) Transferrin 205.0 (204.0-354.0) mg/dL Ferritin 30.8 (22.0-322.0) ng/mL Total Bilirubin 0.5 (0.2-1.3) mg/dL AST 23 (17-59) U/L ALT 14 (4-49) U/L Alkaline Phosphatase 47 (38-126) U/L Troponin I (0.000-0.034) ng/mL NT-Pro-B Natriuret Pep pg/mL Total Protein 6.3 (6.3-8.2) g/dL Albumin 3.5 (3.5-5.0) g/dL Vitamin B12 564.0 (200.0-944.0) pg/mL Methylmalonic Acid (<0.40) umol/L RBC Folate (280 - 791) ng/mL Urine Color Urine Appearance (Clear) Urine RBC (0-5) /hpf Urine WBC (0-5) /hpf Urine Yeast (Budding) (None) /hpf Blood Type Blood Type Confirm O Positive Blood Type Recheck Bld Type Recheck Status Antibody Screen Crossmatch Spec Expiration Date 08/17/23 08/18/23 Range/Units 16:29 00:38 WBC 14.4 H (3.8-10.6) k/uL RBC 2.70 L (4.30-5.90) m/uL Hgb 7.6 L (13.0-17.5) gm/dL Hct 24.1 L (39.0-53.0) % MCV 89.4 (80.0-100.0) fL MCH 28.2 (25.0-35.0) pg MCHC 31.6 (31.0-37.0) g/dL RDW 16.0 H (11.5-15.5) % Plt Count 184 (150-450) k/uL MPV 9.7 Neutrophils % 83 % Lymphocytes % 10 % Monocytes % 6 % Eosinophils % 0 % Basophils % 0 % Neutrophils # 11.9 H (1.3-7.7) k/uL Lymphocytes # 1.4 (1.0-4.8) k/uL Monocytes # 0.9 (0-1.0) k/uL Eosinophils # 0.0 (0-0.7) k/uL Basophils # 0.0 (0-0.2) k/uL Hypochromasia Slight Anisocytosis PT (10.0-12.5) sec INR (<1.2) APTT (22.0-30.0) sec Sodium (137-145) mmol/L Potassium (3.5-5.1) mmol/L Chloride (98-107) mmol/L Carbon Dioxide (22-30) mmol/L Anion Gap mmol/L BUN (9-20) mg/dL Creatinine (0.66-1.25) mg/dL Est GFR (CKD-EPI)AfAm (>60 ml/min/1.73 sqM) Est GFR (CKD-EPI)NonAf (>60 ml/min/1.73 sqM) Glucose (74-99) mg/dL Calcium (8.4-10.2) mg/dL Magnesium (1.6-2.3) mg/dL Iron (65-175) UG/DL TIBC (228-460) UG/DL % Saturation (15.00-50.00) Transferrin (204.0-354.0) mg/dL Ferritin (22.0-322.0) ng/mL Total Bilirubin (0.2-1.3) mg/dL AST (17-59) U/L ALT (4-49) U/L Alkaline Phosphatase (38-126) U/L Troponin I (0.000-0.034) ng/mL NT-Pro-B Natriuret Pep pg/mL Total Protein (6.3-8.2) g/dL Albumin (3.5-5.0) g/dL Vitamin B12 (200.0-944.0) pg/mL Methylmalonic Acid (<0.40) umol/L RBC Folate (280 - 791) ng/mL Urine Color Urine Appearance (Clear) Urine RBC (0-5) /hpf Urine WBC (0-5) /hpf Urine Yeast (Budding) (None) /hpf Blood Type O Positive Blood Type Confirm Blood Type Recheck No Previous Record Bld Type Recheck Status CABO Indicated Antibody Screen NEGATIVE Crossmatch See Detail Spec Expiration Date 08/20/20232328 Disposition Clinical Impression: Chest pain, Elevated troponin, Anemia, Urinary retention, Hematuria Disposition: ADMITTED IP TO THIS [facility] Condition: Serious Is patient prescribed a controlled substance at d/c from ED?: No Time of Disposition: 00:19 Decision to Admit Reason: Admit from EC Decision Date: 08/17/23 Decision Time: 00:19
[2023-08-17] MEDS ORDERED: NALOXONE 0.4 MG/ML 1 ML VIAL IV PRN (00:19)
--- NOTE | 2023-08-17 00:31 | XR ---
EXAM: XR Chest, 2 Views CLINICAL HISTORY: ITS.REASON XR Reason: Chest Pain TECHNIQUE: Frontal and lateral views of the chest. COMPARISON: CXR June 21, 2018. FINDINGS: Lungs: Unremarkable. No consolidation. Pleural space: Unremarkable. No pneumothorax. Heart: Cardiomegaly. Sternotomy wires. Mediastinum: Unremarkable. Normal mediastinal contour. Bones/joints: Unremarkable. No acute fracture. IMPRESSION: No pneumonia.
[2023-08-17] MEDS: ONDANSETRON 4 MG/2 ML VIAL IVP STA (05:19)
[2023-08-17 05:57] LABS: Budding Yeast,Urine Many /hpf
[2023-08-17 05:59] LABS: Appearance,Urine Bloody (Clear)
[2023-08-17 06:00] LABS: Color,Urine Red; RBC,Urine >182 /hpf (0-5); WBC,Urine 19 /hpf (0-5)
[2023-08-17] MEDS: HYDROmorphone 1 MG/ML 1 ML SYRINGE IVP PRN (06:18)
--- NOTE | 2023-08-17 10:57 | P.CRDCN ---
History of Present Illness History of present illness: HISTORY OF PRESENT ILLNESS: This is a 87-year-old male with a past medical history significant for prostate cancer, urinary retention, coronary artery disease with previous CABG and PCI, hypertension, hyperlipidemia, and aortic stenosis. Patient follows in the office with Dr. Rhoades. We have been asked to see the patient in consultation for elevated troponins. Patient examined at the bedside. Patient states he sees Dr. Landis on an outpatient basis. He states that he had an indwelling catheter that was removed in the office by Dr. Landis. He states once he returned home and self cath for the first time about 3 hours later he had gross hematuria with blood clots. He states that he waited a couple hours and tried again thinking it was may be just trauma related to having the catheter removed but that hematuria continued so he came to the hospital for further evaluation. Patient continues to have hematuria at the time of examination. Patient denies any chest pain or pressure. He denies any shortness of breath. Vital signs are stable. DIAGNOSTICS: - EKG reveals sinus bradycardia with no signs of acute ischemia - Chest xray negative for acute process - Laboratory data: WBC 8.4. Hemoglobin 8.6. Platelet count 214. Sodium 132. Potassium 3.9. BUN 18. Creatinine 0.97. Troponin 0. 129. 0.170. 0.222. proBNP 5010. - Current home cardiac medications include Plavix 75 mg daily, Toprol tartrate 12.5 mg twice a day, aspirin 81 mg daily, losartanhydrochlorothiazide 50-12.5 mg daily, rosuvastatin 5 mg every 48 hours. - Most recent echocardiogram obtained in June 2023 revealing ejection fraction 55%, mild LVH, mild to moderate aortic regurgitation, severe aortic stenosis, mild to moderate mitral regurgitation, mild mitral stenosis, moderate tricuspid regurgitation - Cardiac catheterization history: October 2022 with stenting of the proximal OM and mid circumflex. iFR of right coronary artery. REVIEW OF SYSTEMS: At the time of my exam: CONSTITUTIONAL: Denies fever or chills. HEENT: Denies blurred vision, vision changes, or eye pain. Denies hemoptysis CARDIOVASCULAR: Denies chest pain. Denies orthopnea. Denies PND. Denies palpitations RESPIRATORY: Denies shortness of breath. GASTROINTESTINAL: Denies abdominal pain. Denies nausea or vomiting. HEMATOLOGIC: Denies bleeding disorders. GENITOURINARY: Denies any blood in urine. SKIN: Denies pruitis. Denies rash. PHYSICAL EXAM: VITAL SIGNS: Reviewed. GENERAL: Well-developed in no acute distress. HEENT: Head is normocephalic. Pupils are equal, round. Sclerae anicteric. Mucous membranes of the mouth are moist. Neck supple. No JVD or thyromegaly LUNGS: Respirations even and unlabored. Lungs essentially clear to auscultation bilaterally. HEART: Regular rate and rhythm. S1 and S2 heard. Systolic murmur noted. ABDOMEN: Soft. Nondistended. Nontender. EXTREMITIES: Normal range of motion. No clubbing or cyanosis. Peripheral pulses intact. Trace bilateral lower extremity edema NEUROLOGIC: Awake and alert. Oriented x 3. ASSESSMENT: Gross hematuria Urinary retention History of prostate cancer with radiation Elevated troponins likely type II [place] secondary to oxygen supply/demand mismatch secondary to anemia due to gross hematuria Coronary artery disease with previous CABG and PCI Valvular heart disease including mild to moderate AR, severe , mild to moderate MR Hypertension Hyperlipidemia PLAN: Obtain 2D echo to assess cardiac structure and function Patient with gross hematuria this morning. We will hold aspirin and Plavix at this time as patient's last stent was in October 2022 Resume additional home cardiac medications Urology has been consulted. Await evaluation recommendations Further recommendations pending patient course Nurse practitioner note has been reviewed by physician. Signing provider agrees with the documented findings, assessment, and plan of care documented by UND[employer]LLAR BASTER as a scribe. Past Medical History Past Medical History: Atrial Fibrillation, Coronary Artery Disease (CAD), Cancer, Chest Pain / Angina, GERD/Reflux, Hyperlipidemia, Hypertension, Osteoarthritis (OA), Pneumonia, Prostate Disorder Additional Past Medical History / Comment(s): prostate CA-radiation (2006) , se lf caths since radiation tx to prostate, aortic stenosis., See Cardiology H & P. History of Any Multi-Drug Resistant Organisms: None Reported Past Surgical History: Coronary Bypass/CABG, Heart Catheterization With Stent, Prostate Surgery Additional Past Surgical History / Comment(s): Angioplasty, heart cath (Nov 2021), Heart caths with stents, 2011, 2016 Past Anesthesia/Blood Transfusion Reactions: No Reported Reaction, Motion Sickness Date of Last Stent Placement:: 2016 Past Psychological History: Anxiety, Depression Smoking Status: Former smoker Past Alcohol Use History: Occasional Past Drug Use History: None Reported - Past Family History Brother(s) Family Medical History: Cancer, Coronary Artery Disease (CAD), Prostate Disorder Additional Family Medical History / Comment(s): Patient has a total of 4 brothers all with history of coronary artery disease. Sister(s) Family Medical History: Cancer, Coronary Artery Disease (CAD) Additional Family Medical History / Comment(s): . Father Family Medical History: Congestive Heart Failure (CHF), Coronary Artery Disease (CAD), Respiratory Disorder Additional Family Medical History / Comment(s): Father at age 76 from coronary artery disease with history of emphysema. Mother Family Medical History: Congestive Heart Failure (CHF), Myocardial Infarction ([place]) Additional Family Medical History / Comment(s): Mother at age 50 from a myocardial infarction. Daughter(s) Family Medical History: No Reported History Additional Family Medical History / Comment(s): . Medications and Allergies Home Medications Medication Instructions Recorded Confirmed Type Ubidecarenone [Co Q-10] 200 mg PO DAILY 07/26/16 08/17/23 History Pantoprazole [Protonix] 40 mg PO HS 09/06/17 08/17/23 History [place]-3/Dha/Epa/Fish Oil [Fish Oil 1 cap PO DAILY 11/16/18 08/17/23 History 500 mg Softgel] Acetaminophen Tab [Tylenol Tab] 500 mg PO Q6HR PRN 11/12/22 08/17/23 History Ipratropium-Albuterol Nebulize 3 ml INHALATION RT-BID 11/12/22 08/17/23 History [Duoneb 0.5 mg-3 mg/3 ml Soln] Metoprolol Tartrate [Lopressor] 12.5 mg PO BID 11/12/22 08/17/23 History Clopidogrel [Plavix] 75 mg PO DAILY 11/17/22 08/17/23 History Aspirin 81 mg PO DAILY #7 tab 11/18/22 08/17/23 Rx ALPRAZolam [Xanax] 0.25 mg PO HS 08/17/23 08/17/23 History Bljr-Eaym-Fkmu 1 tab PO HS 08/17/23 08/17/23 History Losartan-Hctz 50-12.5 mg [Hyzaar 1 tab PO DAILY 08/17/23 08/17/23 History 50-12.5] Prevagen 1 cap PO DAILY 08/17/23 08/17/23 History Rosuvastatin Calcium [Crestor] 5 mg PO Q48H 08/17/23 08/17/23 History Allergies Allergy/AdvReac Type Severity Reaction Status Date / Time Penicillins Allergy Rash/Hives Verified 08/17/23 08:22 Sulfa (Sulfonamide Allergy Rash/Hives Verified 08/17/23 08:22 Antibiotics) tetanus and diphtheria Allergy Rash/Hives/ Verified 08/17/23 08:22 toxoids Blisters Physical Exam Vitals: Vital Signs Temp Pulse Resp BP Pulse Ox 08/17/23 07:49 98 18 117/73 100 08/17/23 06:00 87 18 137/100 98 08/17/23 00:56 72 18 125/65 95 08/16/23 22:47 85 19 181/95 100 08/16/23 21:27 70 19 163/65 98 08/16/23 20:47 97.1 F L 65 18 185/81 100 Intake and Output 08/16/23 08/17/23 08/17/23 22:59 06:59 14:59 Output Total 750 Balance -750 Output: Urine 750 Uretheral (Turcios) 750 Other: Voiding Method Indwelling Catheter Self-Catheterization Weight 90.718 kg Results 08/16/23 21:37 08/16/23 21:37 Cardiac Enzymes 08/16/23 08/16/23 08/17/23 Range/Units 21:37 21:37 03:07 AST 24 (17-59) U/L Troponin I 0.129 H* 0.170 H* (0.000-0.034) ng/mL 08/17/23 Range/Units 06:32 AST (17-59) U/L Troponin I 0.222 H* (0.000-0.034) ng/mL Coagulation 08/16/23 Range/Units 21:37 PT 11.0 (10.0-12.5) sec APTT 29.4 (22.0-30.0) sec CBC 08/16/23 Range/Units 21:37 WBC 8.4 (3.8-10.6) k/uL RBC 3.08 L (4.30-5.90) m/uL Hgb 8.6 L (13.0-17.5) gm/dL Hct 27.9 L (39.0-53.0) % Plt Count 214 (150-450) k/uL Comprehensive Metabolic Panel 08/16/23 Range/Units 21:37 Sodium 132 L (137-145) mmol/L Potassium 3.9 (3.5-5.1) mmol/L Chloride 103 (98-107) mmol/L Carbon Dioxide 19 L (22-30) mmol/L BUN 18 (9-20) mg/dL Creatinine 0.97 (0.66-1.25) mg/dL Glucose 136 H (74-99) mg/dL Calcium 9.3 (8.4-10.2) mg/dL AST 24 (17-59) U/L ALT 14 (4-49) U/L Alkaline Phosphatase 51 (38-126) U/L Total Protein 6.7 (6.3-8.2) g/dL Albumin 3.8 (3.5-5.0) g/dL Current Medications Generic Name Dose Route Start Last Admin Trade Name Freq PRN Reason Stop Dose Admin Hydromorphone HCl 1 mg 08/17/23 00:19 08/17/23 06:18 Hydromorphone 1 Mg/Ml 1 Ml Syringe IVP 1 mg Q3HR PRN Administration Severe Pain (Scale 7 to 10) Naloxone HCl 0.2 mg 08/17/23 00:19 Naloxone 0.4 Mg/Ml 1 Ml Vial IV Q2M PRN Opioid Reversal Intake and Output 08/16/23 08/17/23 08/17/23 22:59 06:59 14:59 Output Total 750 Balance -750 Output: Urine 750 Uretheral (Turcios) 750 Other: Voiding Method Indwelling Catheter Self-Catheterization Weight 90.718 kg 08/16/23 21:37 08/16/23 21:37
[2023-08-17] MEDS: METOPROLOL TARTRATE 12.5 MG TAB PO SCH (11:44)
[2023-08-17] MEDS: LOSARTAN-HCTZ 50-12.5 MG 1 EACH TAB PO SCH (11:45)
[2023-08-17 13:26] LABS: ALT 14 U/L (4-49); AST 23 U/L (17-59); African American GFR (CKD) 75 (>60 ml/min/1.73 sqM); Albumin 3.5 g/dL (3.5-5.0); Alkaline Phosphatase 47 U/L (38-126); Anion Gap 8 mmol/L; Anisocytosis Slight; Basophils % (A) 0 %; Blood Urea Nitrogen 20 mg/dL (9-20); Calcium 8.8 mg/dL (8.4-10.2); Carbon Dioxide 22 mmol/L (22-30); Chloride 102 mmol/L (98-107); Eosinophils % (A) 0 %; Glucose 197 mg/dL (74-99); HCT 23.7 % (39.0-53.0); HGB 7.3 gm/dL (13.0-17.5); Hypochromasia Slight; Lymphocytes # (A) 0.9 k/uL (1.0-4.8); Lymphocytes % (A) 6 %; MCH 28.2 pg (25.0-35.0); MCHC 30.7 g/dL (31.0-37.0); MCV 91.7 fL (80.0-100.0); Mean Platelet Volume 8.8; Monocytes # (A) 0.4 k/uL (0-1.0); Monocytes % (A) 3 %; Neutrophils # (A) 12.6 k/uL (1.3-7.7); Neutrophils % (A) 90 %; Non-African American GFR(CKD) 65 (>60 ml/min/1.73 sqM); Platelet Count 229 k/uL (150-450); Potassium 4.4 mmol/L (3.5-5.1); RBC 2.58 m/uL (4.30-5.90); RDW 16.1 % (11.5-15.5); Sodium 132 mmol/L (137-145); Total Bilirubin 0.5 mg/dL (0.2-1.3); Total Protein 6.3 g/dL (6.3-8.2)
[2023-08-17] MEDS: SODIUM FERRIC GLUCONAT-SUCROSE 125 MG in SODIUM CHLORIDE 0.9% 100 ML IVPB SCH (13:41)
[2023-08-17] MEDS: SODIUM CHLORIDE 0.9% 1,000 ML IV ONE (17:41)
[2023-08-17] MEDS: SODIUM CHLORIDE 0.9% IRRIG 3,000 ML BAG IRRIGATION SCH (18:11)
[2023-08-17] MEDS ORDERED: ONDANSETRON 4 MG/2 ML VIAL IVP PRN (18:29)
[2023-08-17] MEDS: PANTOPRAZOLE 40 MG TABLET PO SCH (20:35)
[2023-08-17] MEDS: ALPRAZolam 0.25 MG TAB PO SCH (20:35)
[2023-08-17] MEDS: OXYBUTYNIN XL 5 MG TAB.ER.24 PO SCH (20:35)
[2023-08-17] MEDS: ATORVASTATIN 10 MG TAB PO SCH (20:35)
[2023-08-17] MEDS: IPRATROPIUM-ALBUTEROL 3 ML NEB INHALATION SCH (21:19)
--- NOTE | 2023-08-17 22:06 | HP ---
HISTORY AND PHYSICAL HISTORY OF PRESENT ILLNESS: The patient came to the hospital with increased bleeding from the ureteral tract, hematuria, status post CABG, heart disease. Cardiology saw him for elevated troponins, thought it was nonischemic secondary to anemia due to GI bleeding from his Turcios catheter. He self catheterizes long-term due to a bladder dyskinesia. MEDICATIONS: At home include, 1. Plavix 75 daily. 2. Metoprolol 12.5 b.i.d. 3. Aspirin 81 daily. 4. Hyzaar 50/12.5 daily. 5. Rosuvastatin 5 daily. Recent echo with ejection fraction is 55%, severe aortic stenosis with moderate tricuspid regurg. REVIEW OF SYSTEMS: A 14-point review of systems otherwise negative. OBJECTIVE: VITAL SIGNS: Stable, afebrile. CARDIOVASCULAR: S1, S2. LUNGS: Scattered wheeze and rhonchi. HEMATOLOGY: Negative Homans. PSYCH: Fair mood and affect. NEUROLOGIC: Alert and oriented x3. ASSESSMENT: Gross hematuria, urinary retention, prostate cancer, radiation, elevated troponin secondary to supply-demand mismatch due to anemia and gross hematuria. Coronary artery disease, chronic obstructive pulmonary disease, valvular heart disease, dyslipidemia, hypertension. Echo has been ordered. Monitor hemoglobin and transfuse for under 7 possibly due to low anemia. We will have to get a unit of blood due to active bleeding. Prognosis guarded. Continue current treatment for atrial fibrillation, coronary artery disease, COPD, hypertension, osteoarthritis. Prognosis guarded. MMODL / IJN: [id number] /
[2023-08-18 00:55] LABS: Basophils % (A) 0 %; Eosinophils % (A) 0 %; HCT 24.1 % (39.0-53.0); HGB 7.6 gm/dL (13.0-17.5); Hypochromasia Slight; Lymphocytes # (A) 1.4 k/uL (1.0-4.8); Lymphocytes % (A) 10 %; MCH 28.2 pg (25.0-35.0); MCHC 31.6 g/dL (31.0-37.0); MCV 89.4 fL (80.0-100.0); Mean Platelet Volume 9.7; Monocytes # (A) 0.9 k/uL (0-1.0); Monocytes % (A) 6 %; Neutrophils # (A) 11.9 k/uL (1.3-7.7); Neutrophils % (A) 83 %; Platelet Count 184 k/uL (150-450); WBC 14.4 k/uL (3.8-10.6)
--- NOTE | 2023-08-18 06:42 | P.GSCN ---
History of Present Illness Consult date: 08/17/23 Reason for Consult: Gross hematuria Requesting physician: Rigo Peters History of present illness: The patient is an 87-year-old white male with a history of prostate cancer, treated with radiation therapy and androgen deprivation therapy in 2006. His PSA level has been rising and was most recently 4.3 on June 22, 2023. Cystoscopy in November 2018 was unremarkable. Since that time, he has gradually developed urinary retention. Urodynamic testing in July 2020 suggested a hypotonic bladder, and he has self catheterized since that time. 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 For the past year, he has catheterized himself 4 times daily. He experienced gross hematuria in December 2022. Cystoscopy in January 2023 showed friable mucosa within the prostatic urethra, along with mild radiation cystitis. CT scan in June 2023 showed a prominent left ureter. He has experienced gross hematuria with clots for over 1 month, requiring hospitalization at [facility] in mid June. A Turcios catheter was inserted August 08, and clots were irrigated from the bladder. Eliquis has been held since August 09, but he continues to take Plavix and aspirin. His urine was clear on August 15, and the Turcios catheter was removed. He was advised to resume intermittent self-catheterization but experie nced gross hematuria the first time he self catheterized. He thus presented to the ER. Review of Systems - Cardiovascular Reports high blood pressure - Genitourinary Reports as per HPI Past Medical History Past Medical History: Atrial Fibrillation, Coronary Artery Disease (CAD), Cancer, Chest Pain / Angina, GERD/Reflux, Hyperlipidemia, Hypertension, Osteoarthritis (OA), Pneumonia, Prostate Disorder Additional Past Medical History / Comment(s): prostate CA-radiation (2006) , self caths since radiation tx to prostate, aortic stenosis., See Cardiology H & P. History of Any Multi-Drug Resistant Organisms: None Reported Past Surgical History: Coronary Bypass/CABG, Heart Catheterization With Stent, P rostate Surgery Additional Past Surgical History / Comment(s): Angioplasty, heart cath (Nov 2021), Heart caths with stents, 2011, 2016 Past Anesthesia/Blood Transfusion Reactions: No Reported Reaction, Motion Sickness Date of Last Stent Placement:: 2017 Past Psychological History: Anxiety, Depression Smoking Status: Former smoker Past Alcohol Use History: Occasional Past Drug Use History: None Reported - Past Family History Brother(s) Family Medical History: Cancer, Coronary Artery Disease (CAD), Prostate Disorder Additional Family Medical History / Comment(s): Patient has a total of 4 brothers all with history of coronary artery disease. Sister(s) Family Medical History: Cancer, Coronary Artery Disease (CAD) Additional Family Medical History / Comment(s): . Father Family Medical History: Congestive Heart Failure (CHF), Coronary Artery Disease (CAD), Respiratory Disorder Additional Family Medical History / Comment(s): Father at age 76 from coronary artery disease with history of emphysema. Mother Family Medical History: Congestive Heart Failure (CHF), Myocardial Infarction ([place]) Additional Family Medical History / Comment(s): Mother at age 50 from a myocardial infarction. Daughter(s) Family Medical History: No Reported History Additional Family Medical History / Comment(s): . Medications and Allergies Home Medications Medication Instructions Recorded Confirmed Type Ubidecarenone [Co Q-10] 200 mg PO DAILY 07/26/16 08/17/23 History Pantoprazole [Protonix] 40 mg PO HS 09/06/17 08/17/23 History [place]-3/Dha/Epa/Fish Oil [Fish Oil 1 cap PO DAILY 11/16/18 08/17/23 History 500 mg Softgel] Acetaminophen Tab [Tylenol Tab] 500 mg PO Q6HR PRN 11/12/22 08/17/23 History Ipratropium-Albuterol Nebulize 3 ml INHALATION RT-BID 11/12/22 08/17/23 History [Duoneb 0.5 mg-3 mg/3 ml Soln] Metoprolol Tartrate [Lopressor] 12.5 mg PO BID 11/12/22 08/17/23 History Clopidogrel [Plavix] 75 mg PO DAILY 11/17/22 08/17/23 History Aspirin 81 mg PO DAILY #7 tab 11/18/22 08/17/23 Rx ALPRAZolam [Xanax] 0.25 mg PO HS 08/17/23 08/17/23 History Xelw-Geyg-Xzje 1 tab PO HS 08/17/23 08/17/23 History Losartan-Hctz 50-12.5 mg [Hyzaar 1 tab PO DAILY 08/17/23 08/17/23 History 50-12.5] Prevagen 1 cap PO DAILY 08/17/23 08/17/23 History Rosuvastatin Calcium [Crestor] 5 mg PO Q48H 08/17/23 08/17/23 History Allergies Allergy/AdvReac Type Severity Reaction Status Date / Time Penicillins Allergy Rash/Hives Verified 08/17/23 08:22 Sulfa (Sulfonamide Allergy Rash/Hives Verified 08/17/23 08:22 Antibiotics) tetanus and diphtheria Allergy Rash/Hives/ Verified 08/17/23 08:22 toxoids Blisters Surgical - Exam Vital Signs Temp Pulse Resp BP Pulse Ox 97.1 F L 65 18 185/81 100 08/16/23 20:47 08/16/23 20:47 08/16/23 20:47 08/16/23 20:47 08/16/23 20:47 Patient Seen Date: 08/17/23 Patient Seen Time: 16:30 - General well developed, well nourished, moderate distress - Respiratory normal respiratory effort - Abdomen Abdomen: soft, non tender, no guarding, no rigid, no rebound - Genitourinary normal penis with no external lesions, testicles non-tender - Psychiatric oriented to time, oriented to person, oriented to place, speech is normal, memory intact Results - Labs 08/18/23 00:38 08/17/23 13:00 Abnormal Lab Results - Last 24 Hours (Table) 08/16/23 08/16/23 08/16/23 Range/Units 21:37 21:37 21:37 RBC 3.08 L (4.30-5.90) m/uL Hgb 8.6 L (13.0-17.5) gm/dL Hct 27.9 L (39.0-53.0) % MCHC 30.9 L (31.0-37.0) g/dL RDW 15.6 H (11.5-15.5) % Sodium 132 L (137-145) mmol/L Carbon Dioxide 19 L (22-30) mmol/L Glucose 136 H (74-99) mg/dL Troponin I 0.129 H* (0.000-0.034) ng/mL Urine RBC (0-5) /hpf Urine WBC (0-5) /hpf Urine Yeast (Budding) (None) /hpf 08/17/23 08/17/23 Range/Units 03:07 05:30 RBC (4.30-5.90) m/uL Hgb (13.0-17.5) gm/dL Hct (39.0-53.0) % MCHC (31.0-37.0) g/dL RDW (11.5-15.5) % Sodium (137-145) mmol/L Carbon Dioxide (22-30) mmol/L Glucose (74-99) mg/dL Troponin I 0.170 H* (0.000-0.034) ng/mL Urine RBC >182 H (0-5) /hpf Urine WBC 19 H (0-5) /hpf Urine Yeast (Budding) Many H (None) /hpf Diabetes panel 08/16/23 Range/Units 21:37 Sodium 132 L (137-145) mmol/L Potassium 3.9 (3.5-5.1) mmol/L Chloride 103 (98-107) mmol/L Carbon Dioxide 19 L (22-30) mmol/L BUN 18 (9-20) mg/dL Creatinine 0.97 (0.66-1.25) mg/dL Glucose 136 H (74-99) mg/dL Calcium 9.3 (8.4-10.2) mg/dL AST 24 (17-59) U/L ALT 14 (4-49) U/L Alkaline Phosphatase 51 (38-126) U/L Total Protein 6.7 (6.3-8.2) g/dL Albumin 3.8 (3.5-5.0) g/dL Calcium panel 08/16/23 Range/Units 21:37 Calcium 9.3 (8.4-10.2) mg/dL Albumin 3.8 (3.5-5.0) g/dL Pituitary panel 08/16/23 Range/Units 21:37 Sodium 132 L (137-145) mmol/L Potassium 3.9 (3.5-5.1) mmol/L Chloride 103 (98-107) mmol/L Carbon Dioxide 19 L (22-30) mmol/L BUN 18 (9-20) mg/dL Creatinine 0.97 (0.66-1.25) mg/dL Glucose 136 H (74-99) mg/dL Calcium 9.3 (8.4-10.2) mg/dL Adrenal panel 08/16/23 Range/Units 21:37 Sodium 132 L (137-145) mmol/L Potassium 3.9 (3.5-5.1) mmol/L Chloride 103 (98-107) mmol/L Carbon Dioxide 19 L (22-30) mmol/L BUN 18 (9-20) mg/dL Creatinine 0.97 (0.66-1.25) mg/dL Glucose 136 H (74-99) mg/dL Calcium 9.3 (8.4-10.2) mg/dL Total Bilirubin 0.3 (0.2-1.3) mg/dL AST 24 (17-59) U/L ALT 14 (4-49) U/L Alkaline Phosphatase 51 (38-126) U/L Total Protein 6.7 (6.3-8.2) g/dL Albumin 3.8 (3.5-5.0) g/dL Assessment and Plan (1) Gross hematuria Current Visit: Yes Status: Acute Code(s): R31.0 - GROSS HEMATURIA SNOMED Code(s): 877394916 (2) Urinary retention Current Visit: Yes Status: Acute Code(s): R33.9 - RETENTION OF URINE, UNSPECIFIED SNOMED Code(s): 907658408 Plan: The patient has a 20 [place] Turcios catheter in place. I attempted to manually irrigate clots through this catheter but was unsuccessful. Therefore, the Turcios catheter was removed and under sterile conditions, a 22 [place], three-way coud tip hematuria Turcios catheter was inserted. Through this, a considerable number of clots were manually irrigated from the bladder. Once it was evident that all clots have been removed, continuous bladder irrigation was initiated. Arrangements have been made for the patient to be transfused. If it is possible for Plavix to be temporarily held this would be of considerable benefit. Time with Patient: Greater than 30
--- NOTE | 2023-08-18 09:22 | P.PN ---
Subjective Progress Note Date: 08/18/23 Principal diagnosis: Urinary clot retention The patient is sitting comfortably in a chair. Continuous bladder irrigation is running slowly. The urine is pink in color, without clots. Objective - Vital Signs Vital signs: Vital Signs Temp 98.5 F 08/18/23 04:00 Pulse 60 08/18/23 04:00 Resp 18 08/18/23 04:00 BP 106/59 08/18/23 04:00 Pulse Ox 97 08/18/23 04:00 FiO2 Intake & Output 08/17/23 08/17/23 08/18/23 06:59 18:59 06:59 Intake Total 310 Output Total 763 992 9312 Balance -693 -945 -8938 Weight 90.718 kg 90.718 kg Intake: Blood Product 310 Rc As-1 Unit 310 [id number] Output: Urine 117 200 3942 Uretheral (Turcios) 750 375 Other: Voiding Method Indwelling Catheter Indwelling Catheter Self-Catheterization - Constitutional General appearance: Present: average body habitus, cooperative, no acute distress - Psychiatric Psychiatric: Present: A&O x's 3 - Labs CBC & Chem 7: 08/18/23 00:38 08/17/23 13:00 Labs: Abnormal Lab Results - Last 24 Hours (Table) 08/17/23 08/17/23 08/17/23 Range/Units 06:32 13:00 13:00 WBC 14.0 H (3.8-10.6) k/uL RBC 2.58 L (4.30-5.90) m/uL Hgb 7.3 L (13.0-17.5) gm/dL Hct 23.7 L (39.0-53.0) % MCHC 30.7 L (31.0-37.0) g/dL RDW 16.1 H (11.5-15.5) % Neutrophils # 12.6 H (1.3-7.7) k/uL Lymphocytes # 0.9 L (1.0-4.8) k/uL Sodium 132 L (137-145) mmol/L Glucose 197 H (74-99) mg/dL Troponin I 0.222 H* (0.000-0.034) ng/mL Crossmatch 08/17/23 08/18/23 Range/Units 16:29 00:38 WBC 14.4 H (3.8-10.6) k/uL RBC 2.70 L (4.30-5.90) m/uL Hgb 7.6 L (13.0-17.5) gm/dL Hct 24.1 L (39.0-53.0) % MCHC (31.0-37.0) g/dL RDW 16.0 H (11.5-15.5) % Neutrophils # 11.9 H (1.3-7.7) k/uL Lymphocytes # (1.0-4.8) k/uL Sodium (137-145) mmol/L Glucose (74-99) mg/dL Troponin I (0.000-0.034) ng/mL Crossmatch See Detail Assessment and Plan (1) Gross hematuria Current Visit: Yes Status: Acute Code(s): R31.0 - GROSS HEMATURIA SNOMED Code(s): 341578424 (2) Urinary retention Current Visit: Yes Status: Acute Code(s): R33.9 - RETENTION OF URINE, UNSPECIFIED SNOMED Code(s): 649319748 Plan: Continue continuous bladder irrigation, with manual irrigation of clots as needed. The urine was clear earlier this week and I am hopeful that it clears in the near future. If so, he will be discharged home with a Turcios catheter, which will remain in place for an extended period. If the hematuria fails to resolve, he will require cystoscopy with fulguration of bleeders.
[2023-08-18 12:44] LABS: Anisocytosis Slight; Basophils % (A) 0 %; Eosinophils % (A) 0 %; HCT 23.4 % (39.0-53.0); HGB 7.4 gm/dL (13.0-17.5); Hypochromasia Slight; Lymphocytes # (A) 1.4 k/uL (1.0-4.8); Lymphocytes % (A) 9 %; MCH 28.5 pg (25.0-35.0); MCHC 31.6 g/dL (31.0-37.0); MCV 90.4 fL (80.0-100.0); Mean Platelet Volume 9.6; Monocytes # (A) 0.9 k/uL (0-1.0); Monocytes % (A) 6 %; Neutrophils # (A) 13.3 k/uL (1.3-7.7); Neutrophils % (A) 84 %; Platelet Count 190 k/uL (150-450); RBC 2.58 m/uL (4.30-5.90); RDW 16.3 % (11.5-15.5); WBC 15.9 k/uL (3.8-10.6)
--- NOTE | 2023-08-18 12:54 | P.PN ---
Subjective HISTORY OF PRESENT ILLNESS: This is a 87-year-old male with a past medical history significant for prostate cancer, urinary retention, coronary artery disease with previous CABG and PCI, hypertension, hyperlipidemia, and aortic stenosis. Patient follows in the office with Dr. Rhoades. We have been asked to see the patient in consultation for tonya molina. Patient examined at the bedside. Patient states he sees Dr. Landis on an outpatient basis. He states that he had an indwelling catheter that was removed in the office by Dr. Landis. He states once he returned home and self cath for the first time about 3 hours later he had gross hematuria with blood clots. He states that he waited a couple hours and tried again thinking it was may be just trauma related to having the catheter removed but that hematuria continued so he came to the hospital for further evaluation. Patient continues to have hematuria at the time of examination. Patient denies any chest pain or pressure. He denies any shortness of breath. Vital signs are stable. DIAGNOSTICS: - EKG reveals sinus bradycardia with no signs of acute ischemia - Chest xray negative for acute process - Laboratory data: WBC 8.4. Hemoglobin 8.6. Platelet count 214. Sodium 132. Potassium 3.9. BUN 18. Creatinine 0.97. Troponin 0. 129. 0.170. 0.222. proBNP 5010. - Current home cardiac medications include Plavix 75 mg daily, Toprol tartrate 12.5 mg twice a day, aspirin 81 mg daily, losartanhydrochlorothiazide 50-12.5 mg daily, rosuvastatin 5 mg every 48 hours. - Most recent echocardiogram obtained in June 2023 revealing ejection fraction 55%, mild LVH, mild to moderate aortic regurgitation, severe aortic stenosis, mild to moderate mitral regurgitation, mild mitral stenosis, moderate tricuspid regurgitation - Cardiac catheterization history: October 2022 with stenting of the proximal OM and mid circumflex. iFR of right coronary artery. 08/18/2023 Patient examined this morning at the bedside. Patient currently denies chest pain or pressure. He denies shortness of breath. Patient has continuous bladder irrigation running. Urine is blood-tinged without clots today. PHYSICAL EXAM: VITAL SIGNS: Reviewed. GENERAL: Well-developed in no acute distress. HEENT: Head is normocephalic. Pupils are equal, round. Sclerae anicteric. Mucous membranes of the mouth are moist. Neck supple. No JVD or thyromegaly LUNGS: Respirations even and unlabored. Lungs essentially clear to auscultation bilaterally. HEART: Regular rate and rhythm. S1 and S2 heard. Systolic murmur noted. ABDOMEN: Soft. Nondistended. Nontender. EXTREMITIES: Normal range of motion. No clubbing or cyanosis. Peripheral pulses intact. Trace bilateral lower extremity edema NEUROLOGIC: Awake and alert. Oriented x 3. ASSESSMENT: Gross hematuria Urinary retention History of prostate cancer with radiation Elevated troponins likely type II MD secondary to oxygen supply/demand mismatch secondary to anemia due to gross hematuria Coronary artery disease with previous CABG and PCI Valvular heart disease including mild to moderate AR, severe , mild to moderate MR Hypertension Hyperlipidemia PLAN: 2D echo ordered. Await results Due to hematuria, continue to hold aspirin and Plavix at this time as patient's last stent was in October 2022 Continue additional cardiac medications Patient is currently stable from a cardiac perspective Further recommendations pending patient course Nurse practitioner note has been reviewed by physician. Signing provider agrees with the documented findings, assessment, and plan of care documented by HOME SPECIALIST as a scribe. Objective - Vital Signs Vital signs: Vital Signs Temp 97.7 F 08/18/23 08:00 Pulse 72 08/18/23 08:38 Resp 16 08/18/23 08:00 BP 92/56 08/18/23 08:00 Pulse Ox 98 08/18/23 08:28 FiO2 Intake & Output 08/17/23 08/18/23 08/18/23 18:59 06:59 18:59 Intake Total 310 598 Output Total 375 2400 450 Balance -375 -0 148 Weight 90.718 kg Intake: Oral 598 Blood Product 310 Rc As-1 Unit 310 [id number] Output: Urine 375 2400 450 Uretheral ([place]) 375 Other: Voiding Method Indwelling Catheter Indwelling Catheter - Labs CBC & Chem 7: 08/18/23 11:15 08/17/23 13:00 Labs: Abnormal Lab Results - Last 24 Hours (Table) 08/17/23 08/17/23 08/17/23 Range/Units 13:00 13:00 16:29 WBC 14.0 H (3.8-10.6) k/uL RBC 2.58 L (4.30-5.90) m/uL Hgb 7.3 L (13.0-17.5) gm/dL Hct 23.7 L (39.0-53.0) % MCHC 30.7 L (31.0-37.0) g/dL RDW 16.1 H (11.5-15.5) % Neutrophils # 12.6 H (1.3-7.7) k/uL Lymphocytes # 0.9 L (1.0-4.8) k/uL Sodium 132 L (137-145) mmol/L Glucose 197 H (74-99) mg/dL Crossmatch See Detail 08/18/23 08/18/23 Range/Units 00:38 11:15 WBC 14.4 H 15.9 H (3.8-10.6) k/uL RBC 2.70 L 2.58 L (4.30-5.90) m/uL Hgb 7.6 L 7.4 L (13.0-17.5) gm/dL Hct 24.1 L 23.4 L (39.0-53.0) % MCHC (31.0-37.0) g/dL RDW 16.0 H 16.3 H (11.5-15.5) % Neutrophils # 11.9 H 13.3 H (1.3-7.7) k/uL Lymphocytes # (1.0-4.8) k/uL Sodium (137-145) mmol/L Glucose (74-99) mg/dL Crossmatch
[2023-08-18 13:01] LABS: ALT 13 U/L (4-49); AST 21 U/L (17-59); African American GFR (CKD) 65 (>60 ml/min/1.73 sqM); Alkaline Phosphatase 41 U/L (38-126); Anion Gap 6 mmol/L; Blood Urea Nitrogen 26 mg/dL (9-20); Calcium 8.4 mg/dL (8.4-10.2); Carbon Dioxide 25 mmol/L (22-30); Chloride 101 mmol/L (98-107); Glucose 140 mg/dL (74-99); Non-African American GFR(CKD) 56 (>60 ml/min/1.73 sqM); Potassium 4.1 mmol/L (3.5-5.1); Sodium 132 mmol/L (137-145); Total Bilirubin 0.6 mg/dL (0.2-1.3); Total Protein 5.7 g/dL (6.3-8.2)
[2023-08-18 16:20] LABS: Ferritin 30.8 ng/mL (22.0-322.0)
[2023-08-18 16:50] LABS: % Iron Saturation 4.88 (15.00-50.00)
[2023-08-18 22:37] LABS: Anisocytosis Slight; Hypochromasia Slight; MCHC 30.8 g/dL (31.0-37.0); MCV 90.9 fL (80.0-100.0); Mean Platelet Volume 8.9; Platelet Count 174 k/uL (150-450); RDW 16.4 % (11.5-15.5); WBC 15.1 k/uL (3.8-10.6)
[2023-08-18 22:43] LABS: HGB 6.5 gm/dL (13.0-17.5)
[2023-08-18 22:54] LABS: Immunoglobulin M 44.8 mg/dL (40.0-280.0); Protein, Total 5.7 g/dL (6.2-8.2)
--- NOTE | 2023-08-19 07:37 | P.CONS ---
History of Present Illness - Reason for Consult Consult date: 08/18/23 anemia Requesting physician: Rigo Peters - Chief Complaint hematuria - History of Present Illness Patient is an 87-year-old male who presents to the emergency room for hematuria. We are consulted due to anemia. Patient has a significant history of coronary artery disease, CABG and atrial fibrillation anticoagulated with Eliquis, Plavix and aspirin. He also has a history of prostate cancer treated with radiation therapy and androgen deprivation therapy in 2006. His PSA level has been rising and was most recently 4.3 on 06/22/23. He follows with Dr. Bowling. Patient was seen in the ER 08/08/23 due to hematuria and was subsequently seen the following day again for persisting hematuria at which time a Andrews catheter was placed. He states he followed up with Dr. Bowling on Wednesday and andrews was removed, and later that day hematuria restarted with significant amount of bleeding with clots at which time he presented to the emergency room for further evaluation. Patient denies blood in stool and melena. Denies abdominal pain. His last colonoscopy was approximately 2 years ago which was normal per patient, and EGD > 5 yrs ago. On admission CBC showed WBC 8.4, hemoglobin 8.6, MCV 90.8, platelets 214,000. Differential showing mostly neutrophilia. Today hemoglobin 7.6 s/p 1 unit of PRBCs. He was also been started on parenteral iron by admitting team. Creatinine 1.02, GFR 65. Bilirubins and LFTs WNL Troponins elevated. Patient has Andrews catheter in place with noted gross hematuria with small blood clots. Patient reports hematuria has been intermittent over the last couple months, and that his hgb is typically in the 10 range, and he has been on iron supplementation in the past, but does not take it consistently due to GI side effects. Review of Systems 10 point ROS is negative except as stated in the HPI Past Medical History Past Medical History: Atrial Fibrillation, Coronary Artery Disease (CAD), Cancer, Chest Pain / Angina, GERD/Reflux, Hyperlipidemia, Hypertension, Osteoarthritis (OA), Pneumonia, Prostate Disorder Additional Past Medical History / Comment(s): prostate CA-radiation (2006) , self caths since radiation tx to prostate, aortic stenosis., See Cardiology [facility] & P. History of Any Multi-Drug Resistant Organisms: None Reported Past Surgical History: Coronary Bypass/CABG, Heart Catheterization With Stent, Prostate Surgery Additional Past Surgical History / Comment(s): Angioplasty, heart cath (Nov 2021), Heart caths with stents, 2011, 2016 Past Anesthesia/Blood Transfusion Reactions: No Reported Reaction, Motion Sickness Date of Last Stent Placement:: 2016 Past Psychological History: Anxiety, Depression Smoking Status: Former smoker Past Alcohol Use History: Occasional Past Drug Use History: None Reported - Past Family History Brother(s) Family Medical History: Cancer, Coronary Artery Disease (CAD), Prostate Disorder Additional Family Medical History / Comment(s): Patient has a total of 4 brothers all with history of coronary artery disease. Sister(s) Family Medical History: Cancer, Coronary Artery Disease (CAD) Additional Family Medical History / Comment(s): . Father Family Medical History: Congestive Heart Failure (CHF), Coronary Artery Disease (CAD), Respiratory Disorder Additional Family Medical History / Comment(s): Father at age 76 from coronary artery disease with history of emphysema. Mother Family Medical History: Congestive Heart Failure (CHF), Myocardial Infarction (OR) Additional Family Medical History / Comment(s): Mother at age 50 from a myocardial infarction. Daughter(s) Family Medical History: No Reported History Additional Family Medical History / Comment(s): . Medications and Allergies Home Medications Medication Instructions Recorded Confirmed Type Ubidecarenone [Co Q-10] 200 mg PO DAILY 07/26/16 08/17/23 History Pantoprazole [Protonix] 40 mg PO HS 09/06/17 08/17/23 History [place]-3/Dha/Epa/Fish Oil [Fish Oil 1 cap PO DAILY 11/16/18 08/17/23 History 500 mg Softgel] Acetaminophen Tab [Tylenol Tab] 500 mg PO Q6HR PRN 11/12/22 08/17/23 History Ipratropium-Albuterol Nebulize 3 ml INHALATION RT-BID 11/12/22 08/17/23 History [Duoneb 0.5 mg-3 mg/3 ml Soln] Metoprolol Tartrate [Lopressor] 12.5 mg PO BID 11/12/22 08/17/23 History Clopidogrel [Plavix] 75 mg PO DAILY 11/17/22 08/17/23 History Aspirin 81 mg PO DAILY #7 tab 11/18/22 08/17/23 Rx ALPRAZolam [Xanax] 0.25 mg PO HS 08/17/23 08/17/23 History Hzht-Beuy-Evse 1 tab PO HS 08/17/23 08/17/23 History Losartan-Hctz 50-12.5 mg [Hyzaar 1 tab PO DAILY 08/17/23 08/17/23 History 50-12.5] Prevagen 1 cap PO DAILY 08/17/23 08/17/23 History Rosuvastatin Calcium [Crestor] 5 mg PO Q48H 08/17/23 08/17/23 History Allergies Allergy/AdvReac Type Severity Reaction Status Date / Time Penicillins Allergy Rash/Hives Verified 08/17/23 08:22 Sulfa (Sulfonamide Allergy Rash/Hives Verified 08/17/23 08:22 Antibiotics) tetanus and diphtheria Allergy Rash/Hives/ Verified 08/17/23 08:22 toxoids Blisters Physical Exam Vitals: Vital Signs Temp Pulse Pulse Resp BP BP Pulse Ox 08/18/23 08:38 72 08/18/23 08:28 98 08/18/23 08:27 71 08/18/23 08:00 97.7 F 68 16 92/56 98 08/18/23 04:00 98.5 F 60 18 106/59 97 08/18/23 01:32 60 18 08/17/23 23:14 98.1 F 62 18 109/60 95 08/17/23 21:32 70 08/17/23 21:22 70 08/17/23 20:00 60 08/17/23 19:54 98.3 F 70 18 118/64 97 08/17/23 19:34 98.4 F 69 18 122/59 98 08/17/23 19:24 98.2 F 68 18 116/54 97 08/17/23 18:59 97.7 F 80 18 127/65 95 08/17/23 18:20 97 F L 85 18 133/63 92 L 08/17/23 17:00 73 18 130/72 96 08/17/23 15:37 79 18 116/69 96 08/17/23 12:37 81 18 124/53 98 Intake and Output 08/17/23 08/18/23 08/18/23 22:59 06:59 14:59 Intake Total 0 310 598 Output Total 375 2400 450 Balance -375 -2090 148 Intake: Oral 598 Blood Product 0 310 Rc As-1 Unit 0 310 [id number] Output: Urine 375 2400 450 Uretheral ([place]rdews) 375 Other: Voiding Method Indwelling Catheter Indwelling Catheter Indwelling Catheter Weight 90.718 kg - Constitutional General appearance: average body habitus, no acute distress - EENT Eyes: anicteric sclerae, EOMI ENT: hearing grossly normal - Respiratory Respiratory: bilateral: CTA - Cardiovascular Rhythm: regular - Gastrointestinal General gastrointestinal: soft, no tenderness - Integumentary Integumentary: no cyanotic, no jaundiced, pale - Neurologic Neurologic: CNII-XII intact - Musculoskeletal Musculoskeletal: strength equal bilaterally - Psychiatric Psychiatric: A&O x's 3 Results CBC & Chem 7: 08/18/23 21:33 08/18/23 11:15 Labs: Abnormal Lab Results - Last 24 Hours (Table) 08/17/23 08/17/23 08/17/23 Range/Units 13:00 13:00 16:29 WBC 14.0 H (3.8-10.6) k/uL RBC 2.58 L (4.30-5.90) m/uL Hgb 7.3 L (13.0-17.5) gm/dL Hct 23.7 L (39.0-53.0) % MCHC 30.7 L (31.0-37.0) g/dL RDW 16.1 H (11.5-15.5) % Neutrophils # 12.6 H (1.3-7.7) k/uL Lymphocytes # 0.9 L (1.0-4.8) k/uL Sodium 132 L (137-145) mmol/L Glucose 197 H (74-99) mg/dL Crossmatch See Detail 08/18/23 Range/Units 00:38 WBC 14.4 H (3.8-10.6) k/uL RBC 2.70 L (4.30-5.90) m/uL Hgb 7.6 L (13.0-17.5) gm/dL Hct 24.1 L (39.0-53.0) % MCHC (31.0-37.0) g/dL RDW 16.0 H (11.5-15.5) % Neutrophils # 11.9 H (1.3-7.7) k/uL Lymphocytes # (1.0-4.8) k/uL Sodium (137-145) mmol/L Glucose (74-99) mg/dL Crossmatch Chest x-ray: report reviewed Assessment and Plan (1) Anemia Current Visit: Yes Status: Acute Priority: Medium Code(s): D64.9 - ANEMIA, UNSPECIFIED SNOMED Code(s): 882454594 (2) Elevated troponin Current Visit: Yes Status: Acute Priority: High Code(s): R79.89 - OTHER SPECIFIED ABNORMAL FINDINGS OF BLOOD CHEMISTRY SNOMED Code(s): 836775394 (3) Gross hematuria Current Visit: Yes Status: Acute Priority: High Code(s): R31.0 - GROSS HEMATURIA SNOMED Code(s): 263399225 Plan: Anemia, hematuria: Presented with hematuria. Patient has a significant history of coronary artery disease, CABG and atrial fibrillation anticoagulated with Eliquis, Plavix and aspirin. Patient reports hematuria has been intermittent over the last couple months, and that his hgb is typically in the 10 range. He has been on iron supplementation in the past, but does not take it consistently due to GI side effects. Denies blood in stool and melena. His last colonoscopy was approximately 2 years ago which was normal per patient, and EGD > 5 yrs ago. -On admission CBC showed WBC 8.4, hemoglobin 8.6, MCV 90.8, platelets 214,000. Differential showing mostly neutrophilia. Creatinine 1.02, GFR 65. Bilirubin and LFTs WNL -Today hemoglobin 7.6 s/p 1 unit of PRBCs. Parenteral iron ordered by admitting team. -Will obtain anemia workup, paraproteinemia labs, and autoimmune markers -Anemia likely r/t CKD and bone marrow suppression due to advanced age, superimposed by acute blood loss with use of eliquis and dual antiplatelet therapy -Anticoagulation has been held -Urology following -Continue to monitor CBC. Please transfuse for hgb < 7 or if symptomatic
[2023-08-19 07:47] LABS: Anisocytosis Slight; Basophils % (A) 0 %; Eosinophils # (A) 0.1 k/uL (0-0.7); Eosinophils % (A) 1 %; HCT 23.8 % (39.0-53.0); HGB 7.6 gm/dL (13.0-17.5); Hypochromasia Slight; Lymphocytes # (A) 1.8 k/uL (1.0-4.8); Lymphocytes % (A) 11 %; MCH 28.5 pg (25.0-35.0); MCHC 31.9 g/dL (31.0-37.0); MCV 89.5 fL (80.0-100.0); Mean Platelet Volume 9.3; Monocytes % (A) 6 %; Neutrophils # (A) 13.1 k/uL (1.3-7.7); Neutrophils % (A) 80 %; Platelet Count 179 k/uL (150-450); RBC 2.66 m/uL (4.30-5.90); RDW 16.4 % (11.5-15.5); WBC 16.3 k/uL (3.8-10.6)
[2023-08-19 10:13] LABS: Anisocytosis Slight; HCT 23.1 % (39.0-53.0); HGB 7.2 gm/dL (13.0-17.5); Hypochromasia Slight; MCH 27.9 pg (25.0-35.0); MCHC 31.4 g/dL (31.0-37.0); MCV 88.8 fL (80.0-100.0); Mean Platelet Volume 9.3; Platelet Count 149 k/uL (150-450); Poikilocytosis Slight; RDW 16.5 % (11.5-15.5); WBC 15.4 k/uL (3.8-10.6)
[2023-08-19 11:47] LABS: Free Kappa Lt Chain Qnt, Serum 5.22 mg/dL (0.33-1.94); Free Lambda Lt Chain Qnt, Seru 3.25 mg/dL (0.57-2.63)
--- NOTE | 2023-08-19 12:12 | P.PN ---
Subjective Progress Note Date: 08/19/23 Principal diagnosis: Urinary clot retention The patient is sitting comfortably in a chair. Continuous bladder irrigation is running with pink outflow, but multiple clots were irrigated from the bladder this morning by the nursing staff. Objective - Vital Signs Vital signs: Vital Signs Temp 98.8 F 08/19/23 03:13 Pulse 70 08/19/23 03:13 Resp 18 08/19/23 03:13 BP 124/71 08/19/23 03:13 Pulse Ox 95 08/19/23 03:13 FiO2 Intake & Output 08/18/23 08/18/23 08/19/23 06:59 18:59 06:59 Intake Total 310 1038 770 Output Total 2400 3450 4600 Balance -1239 -3136 -2008 Weight 90.718 kg Intake: Oral 1038 480 Blood Product 310 290 Rc As-1 Unit 310 [id number] Rc Pheresis 2 As3 Unit 290 [id number] Output: Urine 2400 3450 4600 Other: Voiding Method Indwelling Catheter Indwelling Catheter Indwelling Catheter - Constitutional General appearance: Present: average body habitus, cooperative, no acute distress - Psychiatric Psychiatric: Present: A&O x's 3 - Labs CBC & Chem 7: 08/19/23 09:40 08/18/23 11:15 Labs: Abnormal Lab Results - Last 24 Hours (Table) 08/17/23 08/17/23 08/18/23 Range/Units 13:00 16:29 11:15 WBC 15.9 H (3.8-10.6) k/uL RBC 2.58 L (4.30-5.90) m/uL Hgb 7.4 L (13.0-17.5) gm/dL Hct 23.4 L (39.0-53.0) % MCHC (31.0-37.0) g/dL RDW 16.3 H (11.5-15.5) % Neutrophils # 13.3 H (1.3-7.7) k/uL Sodium (137-145) mmol/L BUN (9-20) mg/dL Glucose (74-99) mg/dL Iron 14 L (65-175) UG/DL % Saturation 4.88 L (15.00-50.00) Total Protein (6.3-8.2) g/dL Total Protein (PEP) (6.2-8.2) g/dL Albumin (3.5-5.0) g/dL IgA (60.0-350.0) mg/dL Crossmatch See Detail 08/18/23 08/18/23 08/18/23 Range/Units 11:15 12:58 21:33 WBC 15.1 H (3.8-10.6) k/uL RBC 2.30 L (4.30-5.90) m/uL Hgb 6.5 L* (13.0-17.5) gm/dL Hct 21.0 L (39.0-53.0) % MCHC 30.8 L (31.0-37.0) g/dL RDW 16.4 H (11.5-15.5) % Neutrophils # (1.3-7.7) k/uL Sodium 132 L (137-145) mmol/L BUN 26 H (9-20) mg/dL Glucose 140 H (74-99) mg/dL Iron (65-175) UG/DL % Saturation (15.00-50.00) Total Protein 5.7 L (6.3-8.2) g/dL Total Protein (PEP) 5.7 L (6.2-8.2) g/dL Albumin 3.0 L (3.5-5.0) g/dL IgA 376.0 H (60.0-350.0) mg/dL Crossmatch Assessment and Plan (1) Gross hematuria Current Visit: Yes Status: Acute Priority: High Code(s): R31.0 - GROSS HEMATURIA SNOMED Code(s): 703402190 (2) Urinary retention Current Visit: Yes Status: Acute Code(s): R33.9 - RETENTION OF URINE, UNSP ECIFIED SNOMED Code(s): 832336494 Plan: Given the persistent hematuria with clots, the patient will undergo cystoscopy, evacuation of clot, and fulguration of bleeders later today.
--- NOTE | 2023-08-19 13:06 | CA ---
Transthoracic Echo Report Name: Shubham Landa Age: 87 Gender: M : 1935 Exam Date: 08/18/2023 14:03 Exam Location: [facility] Ht (in): 70 Wt (lb): 200 Ordering Physician: Maile Bob Attending/Referring Phys: Alfonso Bay MD Registered Sales Assistant Prema Sams RDCS Procedure CPT: Indications: LV function, Cardiac Hx: Technical Quality: Fair Contrast 1: Total Dose (mL): Contrast 2: Total Dose (mL): MEASUREMENTS (Male / Female) Normal Values 2D ECHO LV Diastolic Diameter PLAX 5.1 cm 4.2 - 5.9 / 3.9 - 5.3 cm LV Systolic Diameter PLAX 4.3 cm IVS Diastolic Thickness 1.3 cm 0.6 - 1.0 / 0.6 - 0.9 cm LVPW Diastolic Thickness 1.3 cm 0.6 - 1.0 / 0.6 - 0.9 cm LV Relative Wall Thickness 0.5 RV Internal Dim ED PLAX 2.9 cm LVOT Diameter 2.1 cm Aortic Root Diameter 3.4 cm LA Systolic Diameter LX 5.0 cm 3.0 - 4.0 / 2.7 - 3.8 cm LV Diastolic Volume MOD BP 79.3 cm??? 67 - 155 / 56 - 104 cm??? LV Systolic Volume MOD BP 26.2 cm??? 22 - 58 / 19 - 49 cm??? LV Ejection Fraction MOD BP 67.0 % >= 55 % LV Cardiac Index MOD BP 1490.4 cm???/min???m??? LV Diastolic Volume MOD 4C 75.3 cm??? LV Systolic Volume MOD 4C 20.5 cm??? LV Ejection Fraction MOD 4C 72.7 % LV Cardiac Index MOD 4C 1536.8 cm???/min???m??? LV Diastolic Length 4C 7.4 cm LV Systolic Length 4C 6.1 cm LV Diastolic Volume MOD 2C 81.0 cm??? LV Systolic Volume MOD 2C 32.5 cm??? LV Ejection Fraction MOD 2C 59.8 % LV Cardiac Index MOD 2C 1360.7 cm???/min???m??? LV Diastolic Length 2C 7.1 cm LV Systolic Length 2C 6.6 cm M-MODE Aortic Root Diameter MM 3.4 cm LA Systolic Diameter MM 4.6 cm LA Ao Ratio MM 1.3 DOPPLER AV Peak Velocity 422.8 cm/s AV Peak Gradient 71.5 mmHg AV Mean Velocity 331.1 cm/s AV Mean Gradient 46.7 mmHg AV Velocity Time Integral 105.5 cm AI Peak Velocity 235.5 cm/s AI Peak Gradient 22.2 mmHg AI Pressure Half Time 596.2 ms LVOT Peak Velocity 120.3 cm/s LVOT Peak Gradient 5.8 mmHg LVOT Velocity Time Integral 29.6 cm LVOT Stroke Volume 103.9 cm??? LVOT Stroke Volume Index 49.8 ml/m??? LVOT Cardiac Index 2916.8 cm???/min???m??? AV Area Cont Eq vti 1.0 cm??? AV Area Cont Eq pk 1.0 cm??? Mitral E Point Velocity 97.1 cm/s Mitral A Point Velocity 89.0 cm/s Mitral E to A Ratio 1.1 MV Deceleration Time 420.3 ms MV E' Velocity 6.0 cm/s Mitral E to MV E' Ratio 16.3 TR Peak Velocity 270.4 cm/s TR Peak Gradient 29.2 mmHg Right Ventricular Systolic Press 39.8 mmHg FINDINGS Left Ventricle Left ventricular ejection fraction is estimated at 55-60%. Mildly increased septal wall thickness. No obvious regional wall motion abnormalities. Left ventricular cavity size normal. Right Ventricle Normal right ventricular size and function. Mild pulmonary hypertension. Right Atrium Mild right atrial dilatation. Left Atrium Moderately increased left atrial diameter. Mitral Valve Structurally normal mitral valve. [id number] mitral regurgitation. Aortic Valve Severe aortic stenosis with a peak velocity of 4.22m/s, peak gradient 71mmHg, mean gradient 46mmHg. Moderate aortic regurgitation. Tricuspid Valve Structurally normal tricuspid valve. [id number] tricuspid regurgitation. Pulmonic Valve Structurally normal pulmonic valve. Trace to mild pulmonic regurgitation. Pericardium No pericardial or pleural effusion. Aorta Normal size aortic root and proximal ascending aorta. CONCLUSIONS Normal LV EF estimated at 55 to 60% Mild concentric LVH No obvious regional wall motion abnormality Mild to moderate MR Moderate LA dilatation Calcific aortic valve with severe aortic stenosis with mean gradient 46 mmHg, moderate eccentric AR When compared to prior PATY from November 2021, previous mean gradient at aortic valve was 36 mmHg, this time 46 mmHg Previewed by: Dr Parth Franklin (Electronically Signed) Final Date: 19 August 2023 13:05
--- NOTE | 2023-08-19 14:10 | P.PN ---
Subjective HISTORY OF PRESENT ILLNESS: This is a 87-year-old male with a past medical history significant for prostate cancer, urinary retention, coronary artery disease with previous CABG and PCI, hypertension, hyperlipidemia, and aortic stenosis. Patient follows in the office with Dr. Rhoades. We have been asked to see the patient in consultation for tonya molina. Patient examined at the bedside. Patient states he sees Dr. Landis on an outpatient basis. He states that he had an indwelling catheter that was removed in the office by Dr. Landis. He states once he returned home and self cath for the first time about 3 hours later he had gross hematuria with blood clots. He states that he waited a couple hours and tried again thinking it was may be just trauma related to having the catheter removed but that hematuria continued so he came to the hospital for further evaluation. Patient continues to have hematuria at the time of examination. Patient denies any chest pain or pressure. He denies any shortness of breath. Vital signs are stable. DIAGNOSTICS: - EKG reveals sinus bradycardia with no signs of acute ischemia - Chest xray negative for acute process - Laboratory data: WBC 8.4. Hemoglobin 8.6. Platelet count 214. Sodium 132. Potassium 3.9. BUN 18. Creatinine 0.97. Troponin 0. 129. 0.170. 0.222. proBNP 5010. - Current home cardiac medications include Plavix 75 mg daily, Toprol tartrate 12.5 mg twice a day, aspirin 81 mg daily, losartanhydrochlorothiazide 50-12.5 mg daily, rosuvastatin 5 mg every 48 hours. - Most recent echocardiogram obtained in June 2023 revealing ejection fraction 55%, mild LVH, mild to moderate aortic regurgitation, severe aortic stenosis, mild to moderate mitral regurgitation, mild mitral stenosis, moderate tricuspid regurgitation - Cardiac catheterization history: October 2022 with stenting of the proximal OM and mid circumflex. iFR of right coronary artery. 08/18/2023 Patient examined this morning at the bedside. Patient currently denies chest pain or pressure. He denies shortness of breath. Patient has continuous bladder irrigation running. Urine is blood-tinged without clots today. 08/18 patient seen and examined. Patient still having some hematuria. Looking undergo cystoscopy today with urology. He has been off of antiplatelets. Denies any further chest pain. His echocardiogram that showed preserved EF with severe aortic stenosis. Lambda and Cent[place] light chains both mildly elevated PHYSICAL EXAM: VITAL SIGNS: Reviewed. GENERAL: Well-developed in no acute distress. HEENT: Head is normocephalic. Pupils are equal, round. Sclerae anicteric. Mucous membranes of the mouth are moist. Neck supple. No JVD or thyromegaly LUNGS: Respirations even and unlabored. Lungs essentially clear to auscultation bilaterally. HEART: Regular rate and rhythm. S1 and S2 heard. Systolic murmur noted. ABDOMEN: Soft. Nondistended. Nontender. EXTREMITIES: Normal range of motion. No clubbing or cyanosis. Peripheral pulses intact. Trace bilateral lower extremity edema NEUROLOGIC: Awake and alert. Oriented x 3. ASSESSMENT: Gross hematuria Urinary retention History of prostate cancer with radiation Elevated troponins likely type II [place] secondary to oxygen supply/demand mismatch secondary to anemia due to gross hematuria Coronary artery disease with previous CABG and PCI Severe Hypertension Hyperlipidemia Mildly elevated Lambda and [place] light chains not typical of [place] cardiac amyloid PLAN: Due to hematuria, continue to hold aspirin and Plavix at this time as patient's last stent was in October 2022 patient is high risk for any sort of intervention however benefits of improving hematuria I'll a any risks and currently patient appears stable from a cardiac standpoint. Cleared from a cardiology standpoint to proceed with urologic procedure Objective - Vital Signs Vital signs: Vital Signs Temp 98.4 F 08/19/23 08:00 Pulse 75 08/19/23 12:00 Resp 16 08/19/23 12:00 BP 100/48 08/19/23 12:00 Pulse Ox 90 L 08/19/23 12:00 FiO2 Intake & Output 08/18/23 08/19/23 08/19/23 18:59 06:59 18:59 Intake Total 1038 770 240 Output Total 3450 5700 3900 Balance -0931 -9713 -0613 Intake: Oral 1038 480 240 Blood Product 290 Rc Pheresis 2 As3 Unit 290 [id number] Output: Urine 3450 5700 3900 Other: Voiding Method Indwelling Catheter Indwelling Catheter Indwelling Catheter - Labs CBC & Chem 7: 08/19/23 09:40 08/18/23 11:15 Labs: Abnormal Lab Results - Last 24 Hours (Table) 08/16/23 08/17/23 08/17/23 Range/Units 21:37 13:00 16:29 WBC (3.8-10.6) k/uL RBC (4.30-5.90) m/uL Hgb (13.0-17.5) gm/dL Hct (39.0-53.0) % MCHC (31.0-37.0) g/dL RDW (11.5-15.5) % Plt Count (150-450) k/uL Neutrophils # (1.3-7.7) k/uL Iron 14 L (65-175) UG/DL % Saturation 4.88 L (15.00-50.00) Total Protein (PEP) (6.2-8.2) g/dL RBC Folate 1,010 H (280 - 791) ng/mL IgA (60.0-350.0) mg/dL Free Centuria LC, Quant (0.33-1.94) mg/dL Free Lambda LC, Quant (0.57-2.63) mg/dL Crossmatch See Detail 08/18/23 08/18/23 08/19/23 Range/Units 12:58 21:33 07:00 WBC 15.1 H 16.3 H (3.8-10.6) k/uL RBC 2.30 L 2.66 L (4.30-5.90) m/uL Hgb 6.5 L* 7.6 L (13.0-17.5) gm/dL Hct 21.0 L 23.8 L (39.0-53.0) % MCHC 30.8 L (31.0-37.0) g/dL RDW 16.4 H 16.4 H (11.5-15.5) % Plt Count (150-450) k/uL Neutrophils # 13.1 H (1.3-7.7) k/uL Iron (65-175) UG/DL % Saturation (15.00-50.00) Total Protein (PEP) 5.7 L (6.2-8.2) g/dL RBC Folate (280 - 791) ng/mL IgA 376.0 H (60.0-350.0) mg/dL Free [place] LC, Quant 5.22 H (0.33-1.94) mg/dL Free Lambda LC, Quant 3.25 H (0.57-2.63) mg/dL Crossmatch 08/19/23 Range/Units 09:40 WBC 15.4 H (3.8-10.6) k/uL RBC 2.60 L (4.30-5.90) m/uL Hgb 7.2 L (13.0-17.5) gm/dL Hct 23.1 L (39.0-53.0) % MCHC (31.0-37.0) g/dL RDW 16.5 H (11.5-15.5) % Plt Count 149 L (150-450) k/uL Neutrophils # (1.3-7.7) k/uL Iron (65-175) UG/DL % Saturation (15.00-50.00) Total Protein (PEP) (6.2-8.2) g/dL RBC Folate (280 - 791) ng/mL IgA (60.0-350.0) mg/dL Free Centuria LC, Quant (0.33-1.94) mg/dL Free Lambda LC, Quant (0.57-2.63) mg/dL Crossmatch
[2023-08-19 17:26] LABS: Albumin 2.91 g/dL (3.80-4.90); Gamma Globulin 0.96 g/dL (0.70-1.50)
[2023-08-19] MEDS: IV FLUID CONTINUATION 1,000 ML IV ONE (19:17)
[2023-08-19] MEDS: LACTATED RINGERS 1,000 ML BAG IV STA (19:17)
[2023-08-19] MEDS: IV FLUID CONTINUATION 950 ML IV ONE (20:00)
--- NOTE | 2023-08-19 20:45 | P.OP ---
Date of Procedure: 08/19/23 Preoperative Diagnosis: Urinary clot retention Postoperative Diagnosis: Same Procedure(s) Performed: Cystoscopy, evacuation of clot, fulguration of bleeders Anesthesia: MAC Surgeon: Alfonso Bay Estimated Blood Loss (ml): 10 IV fluids (ml): 150 Pathology: none sent Condition: stable Disposition: PACU Indications for Procedure: The patient is an 87-year-old white male with a history of prostate cancer, treated with radiation therapy and androgen deprivation therapy in 2006. His PSA level has been rising and was most recently 4.3 on June 22, 2023. Cystoscopy in November 2018 was unremarkable. Since that time, he has gradually developed urinary retention. Urodynamic testing in July 2020 suggested a hypotonic bladder, and he has self catheterized since that time. 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 For the past year, he has catheterized himself 4 times daily. He experienced gross hematuria in December 2022. Cystoscopy in January 2023 showed friable mucosa within the prostatic urethra, along with mild radiation cystitis. CT scan in June 2023 showed a prominent left ureter. He has experienced gross hematuria with clots for over 1 month, requiring hospitalization at [facility] in mid June. A Turcios catheter was inserted August 08, and clots were irrigated from the bladder. Eliquis has been held since August 09, but he continues to take Plavix and aspirin. His urine was clear on August 15, and the Turcios catheter was removed. He was advised to resume intermittent self-catheterization but experienced gross hematuria the first time he self catheterized. He thus presented to the ER on August 16 and was admitted. He has developed persistent bleeding with clots, requiring manual irrigation and transfusion. He now comes for cystoscopy with evacuation of clot and fulguration of bleeders. Operative Findings: 20 cc of clot within the bladder. Posterior vesical neck oozing. Description of Procedure: The patient was taken to the operating room and placed in the dorsolithotomy position, with his legs supported in Phuc stirrups. The external genitalia was prepped and draped sterilely. The 30 degree lens was used to introduce the 22 [place] start cystoscopic sheath through the urethra and into the bladder under direct vision. The anterior urethra appeared normal. The prostate was virtually frozen, making passage of the cystoscope into the bladder somewhat difficult. There was no significant lateral lobe enlargement, and the median lobe was somewhat high. Upon entering the bladder, some clot was noted. The [employer] 4U evacuator was used to remove approximately 20 cc of clot from the bladder. Cystoscopy was then performed. No tumors or foreign bodies were seen within the bladder. Oozing from the posterior vesical neck was noted. This was controlled with the Bugbee electrode. After achieving complete hemostasis, the cystoscope was removed and a 22 [place], three-way Turcios catheter was placed. The return was clear. The patient tolerated the procedure well and was taken to the recovery in stable condition.
[2023-08-19] MEDS: HYDROmorphone 0.5 MG/0.5 ML SYRINGE IVP STA (20:54)
[2023-08-19] MEDS: methylPREDNISolone SOD SUCCI 40 MG/ML 1 ML VIAL IV SCH (21:40)
[2023-08-19 22:09] LABS: Anisocytosis Slight; HCT 22.1 % (39.0-53.0); Hypochromasia Slight; MCH 28.7 pg (25.0-35.0); MCHC 31.7 g/dL (31.0-37.0); MCV 90.4 fL (80.0-100.0); Mean Platelet Volume 9.1; Platelet Count 159 k/uL (150-450); RBC 2.45 m/uL (4.30-5.90); RDW 16.5 % (11.5-15.5); WBC 13.4 k/uL (3.8-10.6)
--- NOTE | 2023-08-20 01:37 | PN ---
PROGRESS NOTE SUBJECTIVE: He is going down for bladder cystoscopy tonight due to recurrent bleeding. His bleeding appears to be slowing down despite irrigation of large amount of blood clots, blood thinners for 8 days. Acute urinary retention, status post radiation cystitis. Hypertension acceleration is much better, but he still received 2 units of blood due to large amount of hematuria. So far, his hemoglobin is 7.3. We were monitoring it closely for possible 3rd blood transfusion after cystoscopy. OBJECTIVE: VITAL SIGNS: Stable. Afebrile. Blood pressure is now down to 110 to 120 over 60s to 70s. CARDIOVASCULAR: S1, S2. LUNGS: Transmitted upper sounds. GI: Soft. HEMATOLOGY: Negative Homans. PSYCH: Fair mood and affect. PLAN: Plan for cystoscopy. Blood transfusion as needed. He is full code now. He cancelled his DNR. Continue PT, OT. Wait for cystoscopy results. He is going to surgery now. MMODL / IJN: [id number] /
[2023-08-20 03:44] LABS: Methylmalonic Acid 0.22 umol/L (<0.40)
[2023-08-20] MEDS: methylPREDNISolone SOD SUCCI 40 MG/ML 1 ML VIAL IV SCH (05:56)
--- NOTE | 2023-08-20 08:22 | P.PN ---
Subjective Progress Note Date: 08/20/23 Principal diagnosis: Urinary clot retention The patient underwent cystoscopy with evacuation of clot, fulguration of bleeders yesterday evening. He is currently comfortable, and the Turcios catheter is draining clear yellow urine with CBI running slowly. Objective - Vital Signs Vital signs: Vital Signs Temp 97.7 F 08/20/23 03:14 Pulse 67 08/20/23 03:14 Resp 15 08/20/23 03:14 BP 106/58 08/20/23 03:14 Pulse Ox 93 L 08/20/23 03:14 FiO2 Intake & Output 08/19/23 08/20/23 08/20/23 18:59 06:59 18:59 Intake Total 350 400 Output Total 5100 10 Balance -4750 390 Weight 90.718 kg Intake: IV 400 Oral 350 Output: Urine 5100 Estimated Blood Loss 10 Other: Voiding Method Indwelling Catheter Indwelling Catheter - Constitutional General appearance: Present: average body habitus, cooperative, no acute distress - Psychiatric Psychiatric: Present: A&O x's 3 - Labs CBC & Chem 7: 08/19/23 21:44 08/18/23 11:15 Labs: Abnormal Lab Results - Last 24 Hours (Table) 08/16/23 08/18/23 08/19/23 Range/Units 21:37 12:58 09:40 WBC 15.4 H (3.8-10.6) k/uL RBC 2.60 L (4.30-5.90) m/uL Hgb 7.2 L (13.0-17.5) gm/dL Hct 23.1 L (39.0-53.0) % RDW 16.5 H (11.5-15.5) % Plt Count 149 L (150-450) k/uL Albumin (PEP) 2.91 L (3.80-4.90) g/dL RBC Folate 1,010 H (280 - 791) ng/mL Free [place] LC, Quant 5.22 H (0.33-1.94) mg/dL Free Lambda LC, Quant 3.25 H (0.57-2.63) mg/dL 08/19/23 Range/Units 21:44 WBC 13.4 H (3.8-10.6) k/uL RBC 2.45 L (4.30-5.90) m/uL Hgb 7.0 L (13.0-17.5) gm/dL Hct 22.1 L (39.0-53.0) % RDW 16.5 H (11.5-15.5) % Plt Count (150-450) k/uL Albumin (PEP) (3.80-4.90) g/dL RBC Folate (280 - 791) ng/mL Free [place] LC, Quant (0.33-1.94) mg/dL Free Lambda LC, Quant (0.57-2.63) mg/dL Assessment and Plan (1) Gross hematuria Current Visit: Yes Status: Acute Priority: High Code(s): R31.0 - GROSS HEMATURIA SNOMED Code(s): 129321666 (2) Urinary retention Current Visit: Yes Status: Acute Code(s): R33.9 - RETENTION OF URINE, UNSPECIFIED SNOMED Code(s): 218014434 Plan: Continue CBI. I am hopeful that the patient could be discharged home in the next 1 to 2 days with a Turcios catheter.
[2023-08-20 09:13] LABS: Anisocytosis Slight; Basophils % (A) 0 %; Eosinophils % (A) 0 %; HCT 22.1 % (39.0-53.0); HGB 7.1 gm/dL (13.0-17.5); Hypochromasia Slight; Lymphocytes # (A) 0.6 k/uL (1.0-4.8); Lymphocytes % (A) 5 %; MCH 28.9 pg (25.0-35.0); MCHC 32.1 g/dL (31.0-37.0); MCV 89.8 fL (80.0-100.0); Mean Platelet Volume 9.7; Monocytes # (A) 0.3 k/uL (0-1.0); Monocytes % (A) 2 %; Neutrophils # (A) 12.6 k/uL (1.3-7.7); Neutrophils % (A) 92 %; Platelet Count 169 k/uL (150-450); RBC 2.46 m/uL (4.30-5.90); RDW 17.3 % (11.5-15.5); WBC 13.6 k/uL (3.8-10.6)
[2023-08-20 09:18] LABS: ALT 19 U/L (4-49); AST 75 U/L (17-59); African American GFR (CKD) 76 (>60 ml/min/1.73 sqM); Albumin 3.2 g/dL (3.5-5.0); Alkaline Phosphatase 54 U/L (38-126); Anion Gap 7 mmol/L; Blood Urea Nitrogen 24 mg/dL (9-20); Calcium 8.6 mg/dL (8.4-10.2); Carbon Dioxide 23 mmol/L (22-30); Chloride 100 mmol/L (98-107); Glucose 203 mg/dL (74-99); Non-African American GFR(CKD) 66 (>60 ml/min/1.73 sqM); Potassium 3.9 mmol/L (3.5-5.1); Sodium 130 mmol/L (137-145); Total Bilirubin 0.7 mg/dL (0.2-1.3)
--- NOTE | 2023-08-20 15:22 | P.PN ---
Subjective Progress Note Date: 08/20/23 Patient resting comfortably in bed. Patient was reporting constipation, last bowel movement 5 days ago. Lactulose has been added. Today WBC 13.6, hemoglobin 7.1, platelets 169,000. Since admission he is s/p 2 units PRBCs. Anemia labs consistent with iron deficiency anemia. Patient has been started on parenteral iron. Urology has patient on CBI, hematuria resolved Objective - Vital Signs Vital signs: Vital Signs Temp 97.9 F 08/20/23 12:05 Pulse 90 08/20/23 12:05 Resp 16 08/20/23 12:05 BP 112/43 08/20/23 12:05 Pulse Ox 95 08/20/23 12:05 FiO2 Intake & Output 08/19/23 08/20/23 08/20/23 18:59 06:59 18:59 Intake Total 350 400 220 Output Total 5100 10 Balance -4750 390 220 Weight 90.718 kg Intake: IV 400 Intake, IV Titration 100 Amount Sodium Ferric Gluconat- 100 Sucrose 125 mg In Sodium Chloride 0.9% 100 ml @ 100 mls/hr IVPB DAILY [facility] Rx#:[id number] Oral 350 120 Output: Urine 5100 Estimated Blood Loss 10 Other: Voiding Method Indwelling Catheter Indwelling Catheter Indwelling Catheter - Constitutional General appearance: Present: average body habitus, no acute distress - EENT Eyes: Present: anicteric sclerae, EOMI ENT: Present: hearing grossly normal - Respiratory Details: breathing is even and unlabored - Cardiovascular Details: skin warm and dry - Integumentary Integumentary: Present: pale - Musculoskeletal Musculoskeletal: Present: strength equal bilaterally - Psychiatric Psychiatric: Present: A&O x's 3 - Labs CBC & Chem 7: 08/20/23 07:58 08/20/23 07:58 Labs: Abnormal Lab Results - Last 24 Hours (Table) 08/18/23 08/19/23 08/20/23 Range/Units 12:58 21:44 07:58 WBC 13.4 H 13.6 H (3.8-10.6) k/uL RBC 2.45 L 2.46 L (4.30-5.90) m/uL Hgb 7.0 L 7.1 L (13.0-17.5) gm/dL Hct 22.1 L 22.1 L (39.0-53.0) % RDW 16.5 H 17.3 H (11.5-15.5) % Neutrophils # 12.6 H (1.3-7.7) k/uL Lymphocytes # 0.6 L (1.0-4.8) k/uL Sodium (137-145) mmol/L BUN (9-20) mg/dL Glucose (74-99) mg/dL AST (17-59) U/L Total Protein (6.3-8.2) g/dL Albumin (3.5-5.0) g/dL Albumin (PEP) 2.91 L (3.80-4.90) g/dL 08/20/23 Range/Units 07:58 WBC (3.8-10.6) k/uL RBC (4.30-5.90) m/uL Hgb (13.0-17.5) gm/dL Hct (39.0-53.0) % RDW (11.5-15.5) % Neutrophils # (1.3-7.7) k/uL Lymphocytes # (1.0-4.8) k/uL Sodium 130 L (137-145) mmol/L BUN 24 H (9-20) mg/dL Glucose 203 H (74-99) mg/dL AST 75 H (17-59) U/L Total Protein 6.0 L (6.3-8.2) g/dL Albumin 3.2 L (3.5-5.0) g/dL Albumin (PEP) (3.80-4.90) g/dL Assessment and Plan (1) Anemia Current Visit: Yes Status: Acute Priority: Medium Code(s): D64.9 - ANEMIA, UNSPECIFIED SNOMED Code(s): 496916286 (2) Elevated troponin Current Visit: Yes Status: Acute Priority: High Code(s): R79.89 - OTHER SPECIFIED ABNORMAL FINDINGS OF BLOOD CHEMISTRY SNOMED Code(s): 635834143 (3) Gross hematuria Current Visit: Yes Status: Acute Priority: High Code(s): R31.0 - GROSS HEMATURIA SNOMED Code(s): 577673443 Plan: Anemia, hematuria: Presented with hematuria. Patient has a significant history of coronary artery disease, CABG and atrial fibrillation anticoagulated with Eliquis, Plavix and aspirin. Patient reports hematuria has been intermittent over the last couple months, and that his hgb is typically in the 10 range. He has been on iron supplementation in the past, but does not take it consistently due to GI side effects. Denies blood in stool and melena. His last colonoscopy was approximately 2 years ago which was normal per patient, and EGD > 5 yrs ago. -On admission CBC showed WBC 8.4, hemoglobin 8.6, MCV 90.8, platelets 214,000. Differential showing mostly neutrophilia. Creatinine 1.02, GFR 65. Bilirubin and LFTs WNL -Today hemoglobin 7.1, s/p 2 units of PRBCs. Parenteral iron ordered by admitting team. -Will obtain anemia workup, paraproteinemia labs, and autoimmune markers -Anemia likely r/t CKD and bone marrow suppression due to advanced age, superimposed by acute blood loss with use of eliquis and dual antiplatelet therapy -Anticoagulation has been held -Anemia workup consistent with ALEXY. Parenteral iron ordered -Immunofixation shows hard to exclude IgG kappa paraprotein, no quantifiable M- spike. K/L ratio normal. Likely incidental finding -Urology following. CBI started, hematuria resolved -Continue to monitor CBC. Please transfuse for hgb < 7 or if symptomatic -Will schedule clinic f/u to recheck iron studies and iron transfusions as needed
[2023-08-20] MEDS: LACTULOSE 20 GM/30 ML CUP PO SCH (15:52)
--- NOTE | 2023-08-20 21:26 | P.PN ---
Subjective HISTORY OF PRESENT ILLNESS: This is a 87-year-old male with a past medical history significant for prostate cancer, urinary retention, coronary artery disease with previous CABG and PCI, hypertension, hyperlipidemia, and aortic stenosis. Patient follows in the office with Dr. Rhoades. We have been asked to see the patient in consultation for tonya molina. Patient examined at the bedside. Patient states he sees Dr. Landis on an outpatient basis. He states that he had an indwelling catheter that was removed in the office by Dr. Landis. He states once he returned home and self cath for the first time about 3 hours later he had gross hematuria with blood clots. He states that he waited a couple hours and tried again thinking it was may be just trauma related to having the catheter removed but that hematuria continued so he came to the hospital for further evaluation. Patient continues to have hematuria at the time of examination. Patient denies any chest pain or pressure. He denies any shortness of breath. Vital signs are stable. DIAGNOSTICS: - EKG reveals sinus bradycardia with no signs of acute ischemia - Chest xray negative for acute process - Laboratory data: WBC 8.4. Hemoglobin 8.6. Platelet count 214. Sodium 132. Potassium 3.9. BUN 18. Creatinine 0.97. Troponin 0. 129. 0.170. 0.222. proBNP 5010. - Current home cardiac medications include Plavix 75 mg daily, Toprol tartrate 12.5 mg twice a day, aspirin 81 mg daily, losartanhydrochlorothiazide 50-12.5 mg daily, rosuvastatin 5 mg every 48 hours. - Most recent echocardiogram obtained in June 2023 revealing ejection fraction 55%, mild LVH, mild to moderate aortic regurgitation, severe aortic stenosis, mild to moderate mitral regurgitation, mild mitral stenosis, moderate tricuspid regurgitation - Cardiac catheterization history: October 2022 with stenting of the proximal OM and mid circumflex. iFR of right coronary artery. 08/18/2023 Patient examined this morning at the bedside. Patient currently denies chest pain or pressure. He denies shortness of breath. Patient has continuous bladder irrigation running. Urine is blood-tinged without clots today. 08/18 patient seen and examined. Patient still having some hematuria. Looking undergo cystoscopy today with urology. He has been off of antiplatelets. Denies any further chest pain. His echocardiogram that showed preserved EF with severe aortic stenosis. Lambda and [place] light chains both mildly elevated 08/19 patient seen and examined. Patient's hematuria has improved. He underwent Cystoscopy with urine now clear. He does admit to some atypical upper chest pain when he is moving. He has had this fairly persistently. Denies any shortness of breath. PHYSICAL EXAM: VITAL SIGNS: Reviewed. GENERAL: Well-developed in no acute distress. HEENT: Head is normocephalic. Pupils are equal, round. Sclerae anicteric. Mucous membranes of the mouth are moist. Neck supple. No JVD or thyromegaly LUNGS: Respirations even and unlabored. Lungs essentially clear to auscultation bilaterally. HEART: Regular rate and rhythm. S1 and S2 heard. Systolic murmur noted. ABDOMEN: Soft. Nondistended. Nontender. EXTREMITIES: Normal range of motion. No clubbing or cyanosis. Peripheral pulses intact. Trace bilateral lower extremity edema NEUROLOGIC: Awake and alert. Oriented x 3. ASSESSMENT: Gross hematuria Urinary retention History of prostate cancer with radiation Elevated troponins likely type II [place] secondary to oxygen supply/demand mismatch secondary to anemia due to gross hematuria Coronary artery disease with previous CABG and PCI Severe Hypertension Hyperlipidemia Mildly elevated Lambda and [place] light chains not typical of [place] cardiac amyloid PLAN: Due to hematuria, continue to hold aspirin and Plavix at this time as patient's last stent was in October 2022 patient will need further workup of his severe aortic stenosis is now patient Hopeful discharge home tomorrow and eventually in 1-2 weeks consider placing back on aspirin Objective - Vital Signs Vital signs: Vital Signs Temp 97.9 F 08/20/23 19:39 Pulse 80 08/20/23 20:52 Resp 18 08/20/23 19:39 BP 111/56 08/20/23 19:39 Pulse Ox 97 08/20/23 19:39 FiO2 Intake & Output 08/20/23 08/20/23 08/21/23 06:59 18:59 06:59 Intake Total 400 338 Output Total 10 950 150 Balance 390 -612 -150 Weight 90.718 kg Intake: IV 400 Intake, IV Titration 100 Amount Sodium Ferric Gluconat- 100 Sucrose 125 mg In Sodium Chloride 0.9% 100 ml @ 100 mls/hr IVPB DAILY [facility] Rx#:[id number] Oral 238 Output: Urine 950 150 Estimated Blood Loss 10 Other: Voiding Method Indwelling Catheter Indwelling Catheter # Bowel Movements 1 - Labs CBC & Chem 7: 08/20/23 07:58 08/20/23 07:58 Labs: Abnormal Lab Results - Last 24 Hours (Table) 08/19/23 08/20/23 08/20/23 Range/Units 21:44 07:58 07:58 WBC 13.4 H 13.6 H (3.8-10.6) k/uL RBC 2.45 L 2.46 L (4.30-5.90) m/uL Hgb 7.0 L 7.1 L (13.0-17.5) gm/dL Hct 22.1 L 22.1 L (39.0-53.0) % RDW 16.5 H 17.3 H (11.5-15.5) % Neutrophils # 12.6 H (1.3-7.7) k/uL Lymphocytes # 0.6 L (1.0-4.8) k/uL Sodium 130 L (137-145) mmol/L BUN 24 H (9-20) mg/dL Glucose 203 H (74-99) mg/dL AST 75 H (17-59) U/L Total Protein 6.0 L (6.3-8.2) g/dL Albumin 3.2 L (3.5-5.0) g/dL
[2023-08-20 21:42] LABS: Anisocytosis Slight; HCT 21.9 % (39.0-53.0); Hypochromasia Slight; MCH 28.8 pg (25.0-35.0); MCHC 31.9 g/dL (31.0-37.0); MCV 90.1 fL (80.0-100.0); Mean Platelet Volume 9.3; Platelet Count 178 k/uL (150-450); RBC 2.43 m/uL (4.30-5.90); RDW 17.3 % (11.5-15.5); WBC 14.4 k/uL (3.8-10.6)
[2023-08-21] MEDS: ACETAMINOPHEN TAB 500 MG TAB PO PRN (01:44)
[2023-08-21 05:39] LABS: Anisocytosis Slight; HCT 21.5 % (39.0-53.0); Hypochromasia Slight; MCH 29.1 pg (25.0-35.0); MCHC 32.1 g/dL (31.0-37.0); MCV 90.8 fL (80.0-100.0); Mean Platelet Volume 9.3; Platelet Count 179 k/uL (150-450); RBC 2.36 m/uL (4.30-5.90); RDW 17.8 % (11.5-15.5); WBC 13.6 k/uL (3.8-10.6)
[2023-08-21 05:58] LABS: HGB 6.9 gm/dL (13.0-17.5)
[2023-08-21] MEDS: NITROGLYCERIN EXTENDED RELEASE 6.5 MG CAPSULE.ER PO STA (12:58)
[2023-08-21] MEDS: NITROGLYCERIN EXTENDED RELEASE 6.5 MG CAPSULE.ER PO SCH (12:58)
--- NOTE | 2023-08-21 15:04 | P.PN ---
Subjective Progress Note Date: 08/21/23 Principal diagnosis: Urinary clot retention The patient underwent cystoscopy with evacuation of clot, fulguration of bleeders on 08/19/2023. He remains comfortable, and the Turcios catheter is draining clear yellow urine with CBI running slowly. Objective - Vital Signs Vital signs: Vital Signs Temp 97.7 F 08/21/23 04:00 Pulse 81 08/21/23 04:00 Resp 18 08/21/23 04:00 BP 116/68 08/21/23 04:00 Pulse Ox 98 08/21/23 04:00 FiO2 Intake & Output 08/20/23 08/21/23 08/21/23 18:59 06:59 18:59 Intake Total 338 Output Total 950 750 Balance -612 -750 Intake: Intake, IV Titration 100 Amount Sodium Ferric Gluconat- 100 Sucrose 125 mg In Sodium Chloride 0.9% 100 ml @ 100 mls/hr IVPB DAILY [facility] Rx#:[id number] Oral 238 Output: Urine 950 750 Other: Voiding Method Indwelling Catheter Indwelling Catheter # Bowel Movements 1 - Constitutional General appearance: Present: average body habitus, cooperative, no acute distress - Psychiatric Psychiatric: Present: A&O x's 3 - Labs CBC & Chem 7: 08/21/23 05:12 08/20/23 07:58 Labs: Abnormal Lab Results - Last 24 Hours (Table) 08/20/23 08/20/23 08/20/23 Range/Units 07:58 07:58 21:19 WBC 13.6 H 14.4 H (3.8-10.6) k/uL RBC 2.46 L 2.43 L (4.30-5.90) m/uL Hgb 7.1 L 7.0 L (13.0-17.5) gm/dL Hct 22.1 L 21.9 L (39.0-53.0) % RDW 17.3 H 17.3 H (11.5-15.5) % Neutrophils # 12.6 H (1.3-7.7) k/uL Lymphocytes # 0.6 L (1.0-4.8) k/uL Sodium 130 L (137-145) mmol/L BUN 24 H (9-20) mg/dL Glucose 203 H (74-99) mg/dL AST 75 H (17-59) U/L Total Protein 6.0 L (6.3-8.2) g/dL Albumin 3.2 L (3.5-5.0) g/dL 08/21/23 Range/Units 05:12 WBC 13.6 H (3.8-10.6) k/uL RBC 2.36 L (4.30-5.90) m/uL Hgb 6.9 L* (13.0-17.5) gm/dL Hct 21.5 L (39.0-53.0) % RDW 17.8 H (11.5-15.5) % Neutrophils # (1.3-7.7) k/uL Lymphocytes # (1.0-4.8) k/uL Sodium (137-145) mmol/L BUN (9-20) mg/dL Glucose (74-99) mg/dL AST (17-59) U/L Total Protein (6.3-8.2) g/dL Albumin (3.5-5.0) g/dL Assessment and Plan (1) Gross hematuria Current Visit: Yes Status: Acute Priority: High Code(s): R31.0 - GROSS HEMATURIA SNOMED Code(s): 933497577 (2) Urinary retention Current Visit: Yes Status: Acute Code(s): R33.9 - RETENTION OF URINE, UNSPECIFIED SNOMED Code(s): 996015404 Plan: Hold CBI, resume prn. Patient may be discharged home with the Turcios catheter once medically stable. I will exchange the catheter for a smaller, more comfortable catheter in the office next week, assuming the urine remains clear.
--- NOTE | 2023-08-21 15:44 | P.PN ---
Subjective Progress Note Date: 08/21/23 HISTORY OF PRESENT ILLNESS: This is a 87-year-old male with a past medical history significant for prostate cancer, urinary retention, coronary artery disease with previous CABG and PCI, hypertension, hyperlipidemia, and aortic stenosis. Patient follows in the office with Dr. Rhoades. We have been asked to see the patient in consultation for elevated troponins. Patient examined at the bedside. Patient states he sees Dr. Landis on an outpatient basis. He states that he had an indwelling catheter t hat was removed in the office by Dr. Landis. He states once he returned home and self cath for the first time about 3 hours later he had gross hematuria with blood clots. He states that he waited a couple hours and tried again thinking it was may be just trauma related to having the catheter removed but that hematuria continued so he came to the hospital for further evaluation. Patient continues to have hematuria at the time of examination. Patient denies any chest pain or pressure. He denies any shortness of breath. Vital signs are stable. DIAGNOSTICS: - EKG reveals sinus bradycardia with no signs of acute ischemia - Chest xray negative for acute process - Laboratory data: WBC 8.4. Hemoglobin 8.6. Platelet count 214. Sodium 132. Potassium 3.9. BUN 18. Creatinine 0.97. Troponin 0. 129. 0.170. 0.222. proBNP 5010. - Current home cardiac medications include Plavix 75 mg daily, Toprol tartrate 12.5 mg twice a day, aspirin 81 mg daily, losartanhydrochlorothiazide 50-12.5 mg daily, rosuvastatin 5 mg every 48 hours. - Most recent echocardiogram obtained in June 2023 revealing ejection fraction 55%, mild LVH, mild to moderate aortic regurgitation, severe aortic stenosis, mild to moderate mitral regurgitation, mild mitral stenosis, moderate tricuspid regurgitation - Cardiac catheterization history: October 2022 with stenting of the proximal OM and mid circumflex. iFR of right coronary artery. 08/18/2023 Patient examined this morning at the bedside. Patient currently denies chest pain or pressure. He denies shortness of breath. Patient has continuous bladder irrigation running. Urine is blood-tinged without clots today. 08/18 patient seen and examined. Patient still having some hematuria. Looking undergo cystoscopy today with urology. He has been off of antiplatelets. Denies any further chest pain. His echocardiogram that showed preserved EF with severe aortic stenosis. Lambda and Wamsutter light chains both mildly elevated 08/19 patient seen and examined. Patient's hematuria has improved. He underwent Cystoscopy with urine now clear. He does admit to some atypical upper chest pain when he is moving. He has had this fairly persistently. Denies any shortness of breath. 08/20 Patient reports that he had chest pain for approximately 45 minutes this morning while laying in bed and this did radiate to his back. His hemoglobin this morning was 6.9 and he received 1 unit PRBCs. He denies any hematuria. Chest pain has resolved. PHYSICAL EXAM: VITAL SIGNS: Reviewed. GENERAL: Well-developed in no acute distress. HEENT: Head is normocephalic. Pupils are equal, round. Sclerae anicteric. Mucous membranes of the mouth are moist. Neck supple. No JVD or thyromegaly LUNGS: Respirations even and unlabored. Lungs essentially clear to auscultation bilaterally. HEART: Regular rate and rhythm. S1 and S2 heard. Systolic murmur noted. ABDOMEN: Soft. Nondistended. Nontender. EXTREMITIES: Normal range of motion. No clubbing or cyanosis. Peripheral pulses intact. Trace bilateral lower extremity edema NEUROLOGIC: Awake and alert. Oriented x 3. ASSESSMENT: Gross hematuria Urinary retention History of prostate cancer with radiation Elevated troponins likely type II [place] secondary to oxygen supply/demand mismatch secondary to anemia due to gross hematuria Coronary artery disease with previous CABG and PCI Severe Hypertension Hyperlipidemia Mildly elevated Lambda and W[place]utter light chains not typical of [place] cardiac amyloid PLAN: Given chest pain will check troponin. Nitro as needed. Stop Hyzaar and increase metoprolol for better antianginal benefit. Due to hematuria, continue to hold aspirin and Plavix at this time as patient's last stent was in October 2022 patient will need further workup of his severe aortic stenosis outpatient Hopeful discharge home tomorrow and eventually in 1-2 weeks consider placing back on aspirin We will continue to monitor. Patient seen and examined in rounds with Dr. Carlisle, plan of care agreed upon. Objective - Vital Signs Vital signs: Vital Signs Temp 98.1 F 08/21/23 14:27 Pulse 67 08/21/23 14:27 Resp 18 08/21/23 08:00 BP 107/55 08/21/23 14:27 Pulse Ox 96 08/21/23 14:27 FiO2 Intake & Output 08/20/23 08/21/23 08/21/23 18:59 06:59 18:59 Intake Total 338 428 Output Total 950 750 Balance -612 -750 428 Intake: Intake, IV Titration 100 Amount Sodium Ferric Gluconat- 100 Sucrose 125 mg In Sodium Chloride 0.9% 100 ml @ 100 mls/hr IVPB DAILY [facility] Rx#:[id number] Oral 238 118 Blood Product 310 Rc As-1 Unit 310 [id number] Output: Urine 950 750 Other: Voiding Method Indwelling Catheter Indwelling Catheter Indwelling Catheter # Bowel Movements 1 - Labs CBC & Chem 7: 08/21/23 05:12 08/20/23 07:58 Labs: Abnormal Lab Results - Last 24 Hours (Table) 08/20/23 08/21/23 08/21/23 Range/Units 21:19 05:12 07:36 WBC 14.4 H 13.6 H (3.8-10.6) k/uL RBC 2.43 L 2.36 L (4.30-5.90) m/uL Hgb 7.0 L 6.9 L* (13.0-17.5) gm/dL Hct 21.9 L 21.5 L (39.0-53.0) % RDW 17.3 H 17.8 H (11.5-15.5) % Crossmatch See Detail
[2023-08-21] MEDS: ASPIRIN 81 MG PO STA (18:06)
[2023-08-21] MEDS: METOPROLOL TARTRATE 25 MG TAB PO SCH (20:46)
[2023-08-21 21:08] LABS: Anisocytosis Slight; HCT 26.2 % (39.0-53.0); Hypochromasia Slight; MCH 29.2 pg (25.0-35.0); MCHC 32.4 g/dL (31.0-37.0); MCV 89.9 fL (80.0-100.0); Mean Platelet Volume 9.3; Platelet Count 184 k/uL (150-450); Poikilocytosis Slight; RBC 2.91 m/uL (4.30-5.90); RDW 17.2 % (11.5-15.5); WBC 15.7 k/uL (3.8-10.6)
[2023-08-21 21:13] LABS: HGB 8.5 gm/dL (13.0-17.5)
--- NOTE | 2023-08-21 21:37 | PN ---
PROGRESS NOTE DATE OF SERVICE: 08/20/2023 SUBJECTIVE: The patient's hemoglobin is 7.2. He is not bleeding anymore. His urology showed some oozing at the bladder head, but did not show any masses or cancer, it was cauterized. He says his urine looks clear at this time. He is more alert and oriented, await to see what his hemoglobin is in the morning and he wants to go home soon. He is not bleeding through the Turcios. He has a Turcios in. OBJECTIVE: GENERAL: He is alert and oriented x3. CARDIOVASCULAR: S1, S2. LUNGS: Clear. GI: Soft. HEMATOLOGY: Negative Homans. ASSESSMENT: 1. Acute urinary retention. 2. Severe hematuria. 3. Severe anemia, requiring 2 units of blood so far. 4. Chronic obstructive pulmonary disease. 5. Hypertension. He is full code at this time, status post cystoscopy. We will check hemoglobin in the morning. MMODL / IJN: [id number] /
[2023-08-22] MEDS: NITROGLYCERIN SL TABS 0.4 MG TAB SUBLINGUAL PRN (05:54)
[2023-08-22 07:58] LABS: Anisocytosis Slight; Basophils % (A) 0 %; Eosinophils % (A) 0 %; HCT 25.6 % (39.0-53.0); HGB 8.7 gm/dL (13.0-17.5); Hypochromasia Slight; Lymphocytes # (A) 0.7 k/uL (1.0-4.8); Lymphocytes % (A) 6 %; MCH 30.3 pg (25.0-35.0); MCV 89.4 fL (80.0-100.0); Mean Platelet Volume 9.3; Monocytes # (A) 0.4 k/uL (0-1.0); Monocytes % (A) 3 %; Neutrophils # (A) 11.7 k/uL (1.3-7.7); Neutrophils % (A) 90 %; Platelet Count 159 k/uL (150-450); Poikilocytosis Slight; RBC 2.86 m/uL (4.30-5.90)
[2023-08-22 08:32] LABS: ALT 68 U/L (4-49); AST 91 U/L (17-59); African American GFR (CKD) 61 (>60 ml/min/1.73 sqM); Albumin 2.8 g/dL (3.5-5.0); Alkaline Phosphatase 61 U/L (38-126); Anion Gap 3 mmol/L; Blood Urea Nitrogen 32 mg/dL (9-20); Calcium 8.3 mg/dL (8.4-10.2); Carbon Dioxide 27 mmol/L (22-30); Chloride 100 mmol/L (98-107); Glucose 151 mg/dL (74-99); Non-African American GFR(CKD) 52 (>60 ml/min/1.73 sqM); Potassium 4.1 mmol/L (3.5-5.1); Sodium 130 mmol/L (137-145); Total Bilirubin 0.7 mg/dL (0.2-1.3); Total Protein 5.5 g/dL (6.3-8.2)
--- NOTE | 2023-08-22 10:27 | P.GSCN ---
History of Present Illness Consult date: 08/22/23 Reason for Consult: Severe aortic valve stenosis per transthoracic 2D echocardiogram Requesting physician: Rigo Peters History of present illness: This is an 87-year-old gentleman who follows on an outpatient basis with Dr. Rigo Peters for his primary care and with Dr. FLORI Rhoades for his cardiology care. He has a past medical history significant for coronary artery disease with previous coronary artery bypass grafting surgery at [facility] in 1995, with PEARSON to the LAD, vein graft to the diagonal and obtuse marginal coronary artery, and has had previous PCI, hypertension, hyperlipidemia, prostate cancer with radiation treatments, urine retention and self caths at home, valvular heart disease, with mild to moderate aortic valve regurgitation, severe aortic valve stenosis, mild to moderate mitral valve regurgitation, atrial fibrillation, on Eliquis for anticoagulation as an outpatient, GERD, osteoarthritis, anxiety, and remote history of nicotine dependence quit smoking in 1959. On August 16, 2023 the patient presented to the emergency department here at [facility] via EMS due to complaints of urine retention. As mentioned above the patient does self catheterize at home due to urine retention, and recently had a Turcios catheter placed which was removed by Dr. Bay from urology on August 16, 2023. Upon attempting to self catheterize later on during the day the patient developed bright red blood in his urine with blood clots according to the patient. He also had complaints of suprapubic pain and also developed some complaints of chest pain. The patient denies any recent fever, chills, nausea, vomiting, headache, hemoptysis, hematemesis, constipation, diarrhea, lightheadedness, presyncope or syncope. The patient also reports recently he has been getting shortness of breath with walking 70 feet or more and needing to take breaks. The patient also has had some anemia during his hospitalization requiring transfusion of 3 units of packed red blood cells. Due to the patient's complaints of chest pain troponins were drawn which showed positive as high as 4.920. The patient reports that his chest pain is relieved with nitroglycerin. Cardiology was consulted and the patient underwent a transthoracic 2D echocardiogram on August 18, 2023 which showed a left ventricular ejection fraction estimated at 55 to 60%, mild to moderate mitral valve regurgitation, severe aortic stenosis with a peak velocity of 4.22 m/s, a peak gradient 71 mmHg, mean gradient 46 mmHg, moderate aortic valve regurgitation, mild to moderate tricuspid valve regurgitation, trace to mild pulmonic valve regurgitation and no pericardial effusion. Subsequently due to the findings of severe aortic valve stenosis a consult was placed to cardiothoracic surgery for further evaluation and treatment recommendations regarding the aortic valve stenosis. The patient does report that he was seen by cardiothoracic surgery in 2021 for his aortic valve stenosis, although states he had no symptoms at that time. Review of Systems A review of systems was completed and was negative except as mentioned in the HPI. Past Medical History Past Medical History: Atrial Fibrillation, Coronary Artery Disease (CAD), Cancer, Chest Pain / Angina, GERD/Reflux, Hyperlipidemia, Hypertension, Osteoarthritis (OA), Pneumonia, Prostate Disorder Additional Past Medical History / Comment(s): prostate CA-radiation (2006) , self caths since radiation tx to prostate, aortic stenosis., See Cardiology H & P. History of Any Multi-Drug Resistant Organisms: None Reported Past Surgical History: Coronary Bypass/CABG, Heart Catheterization With Stent, Prostate Surgery Additional Past Surgical History / Comment(s): Angioplasty, heart cath (Nov 2021), Heart caths with stents, 2011, 2016 Past Anesthesia/Blood Transfusion Reactions: No Reported Reaction, Motion Sickness Date of Last Stent Placement:: 2016 Past Psychological History: Anxiety, Depression Smoking Status: Former smoker (Quit smoking in 1959) Past Alcohol Use History: Occasional Past Drug Use History: None Reported - Past Family History Brother(s) Family Medical History: Cancer, Coronary Artery Disease (CAD), Prostate Disorder Additional Family Medical History / Comment(s): Patient has a total of 4 brothers all with history of coronary artery disease. Sister(s) Family Medical History: Cancer, Coronary Artery Disease (CAD) Additional Family Medical History / Comment(s): . Father Family Medical History: Congestive Heart Failure (CHF), Coronary Artery Disease (CAD), Respiratory Disorder Additional Family Medical History / Comment(s): Father at age 76 from coronary artery disease with history of emphysema. Mother Family Medical History: Congestive Heart Failure (CHF), Myocardial Infarction ([place]) Additional Family Medical History / Comment(s): Mother at age 50 from a myocardial infarction. Daughter(s) Family Medical History: No Reported History Additional Family Medical History / Comment(s): . Medications and Allergies Home Medications Medication Instructions Recorded Confirmed Type Ubidecarenone [Co Q-10] 200 mg PO DAILY 07/26/16 08/17/23 History Pantoprazole [Protonix] 40 mg PO HS 09/06/17 08/17/23 History [place]-3/Dha/Epa/Fish Oil [Fish Oil 1 cap PO DAILY 11/16/18 08/17/23 History 500 mg Softgel] Acetaminophen Tab [Tylenol Tab] 500 mg PO Q6HR PRN 11/12/22 08/17/23 History Ipratropium-Albuterol Nebulize 3 ml INHALATION RT-BID 11/12/22 08/17/23 History [Duoneb 0.5 mg-3 mg/3 ml Soln] Metoprolol Tartrate [Lopressor] 12.5 mg PO BID 11/12/22 08/17/23 History Clopidogrel [Plavix] 75 mg PO DAILY 11/17/22 08/17/23 History Aspirin 81 mg PO DAILY #7 tab 11/18/22 08/17/23 Rx ALPRAZolam [Xanax] 0.25 mg PO HS 08/17/23 08/17/23 History Vazu-Ugmo-Uizs 1 tab PO HS 08/17/23 08/17/23 History Losartan-Hctz 50-12.5 mg [Hyzaar 1 tab PO DAILY 08/17/23 08/17/23 History 50-12.5] Prevagen 1 cap PO DAILY 08/17/23 08/17/23 History Rosuvastatin Calcium [Crestor] 5 mg PO Q48H 08/17/23 08/17/23 History Allergies Allergy/AdvReac Type Severity Reaction Status Date / Time Penicillins Allergy Rash/Hives Verified 08/17/23 08:22 Sulfa (Sulfonamide Allergy Rash/Hives Verified 08/17/23 08:22 Antibiotics) tetanus and diphtheria Allergy Rash/Hives/ Verified 08/17/23 08:22 toxoids Blisters Surgical - Exam Vital Signs Temp Pulse Resp BP Pulse Ox 97.1 F L 65 18 185/81 100 08/16/23 20:47 08/16/23 20:47 08/16/23 20:47 08/16/23 20:47 08/16/23 20:47 - General well developed, well nourished, no distress, no pain, chronically ill - Eyes PERRL, normal ocular movement, no pale, no icteric - ENT normal pinna, normal nares, normal mucosa, decreased hearing, dentures - Neck Neck is supple, no lymphadenopathy. no masses, no bruits, trachea midline, no venous distension - Respiratory Lung sounds essentially clear throughout. No wheezes, rhonchi or crackles. Respirations are symmetrical and nonlabored. - Cardiovascular Regular rhythm and rate. S1 and S2 present, negative for S3 or gallop. Positive systolic murmur heard best to his right sternal border. No edema present. - Abdomen Abdomen is soft, nontender nondistended. Active bowel sounds present all 4 abdominal quadrants. No guarding or rigidity. - Genitourinary Turcios catheter is in place, clear yellow urine. - Rectum Deferred - Integumentary Skin is warm and dry. No clubbing or cyanosis is present. - Neurologic No focal deficits. - Musculoskeletal Moves all 4 extremities with equal strength bilateral. - Psychiatric oriented to time, oriented to person, oriented to place, speech is normal, memory intact Results - Labs 08/22/23 21:51 08/22/23 06:57 Abnormal Lab Results - Last 24 Hours (Table) 08/21/23 08/21/23 08/21/23 Range/Units 07:36 14:54 20:37 WBC 15.7 H (3.8-10.6) k/uL RBC 2.91 L (4.30-5.90) m/uL Hgb 8.5 L D (13.0-17.5) gm/dL Hct 26.2 L (39.0-53.0) % RDW 17.2 H (11.5-15.5) % Neutrophils # (1.3-7.7) k/uL Lymphocytes # (1.0-4.8) k/uL Sodium (137-145) mmol/L BUN (9-20) mg/dL Glucose (74-99) mg/dL Calcium (8.4-10.2) mg/dL AST (17-59) U/L ALT (4-49) U/L Troponin I 3.060 H* (0.000-0.034) ng/mL Total Protein (6.3-8.2) g/dL Albumin (3.5-5.0) g/dL Crossmatch See Detail 08/21/23 08/22/23 08/22/23 Range/Units 20:37 06:57 06:57 WBC 13.0 H (3.8-10.6) k/uL RBC 2.86 L (4.30-5.90) m/uL Hgb 8.7 L (13.0-17.5) gm/dL Hct 25.6 L (39.0-53.0) % RDW 18.0 H (11.5-15.5) % Neutrophils # 11.7 H (1.3-7.7) k/uL Lymphocytes # 0.7 L (1.0-4.8) k/uL Sodium 130 L (137-145) mmol/L BUN 32 H (9-20) mg/dL Glucose 151 H (74-99) mg/dL Calcium 8.3 L (8.4-10.2) mg/dL AST 91 H (17-59) U/L ALT 68 H (4-49) U/L Troponin I 4.920 H* (0.000-0.034) ng/mL Total Protein 5.5 L (6.3-8.2) g/dL Albumin 2.8 L (3.5-5.0) g/dL Crossmatch Diabetes panel 08/22/23 Range/Units 06:57 Sodium 130 L (137-145) mmol/L Potassium 4.1 (3.5-5.1) mmol/L Chloride 100 (98-107) mmol/L Carbon Dioxide 27 (22-30) mmol/L BUN 32 H (9-20) mg/dL Creatinine 1.22 (0.66-1.25) mg/dL Glucose 151 H (74-99) mg/dL Calcium 8.3 L (8.4-10.2) mg/dL AST 91 H (17-59) U/L ALT 68 H (4-49) U/L Alkaline Phosphatase 61 (38-126) U/L Total Protein 5.5 L (6.3-8.2) g/dL Albumin 2.8 L (3.5-5.0) g/dL Calcium panel 08/22/23 Range/Units 06:57 Calcium 8.3 L (8.4-10.2) mg/dL Albumin 2.8 L (3.5-5.0) g/dL Pituitary panel 08/22/23 Range/Units 06:57 Sodium 130 L (137-145) mmol/L Potassium 4.1 (3.5-5.1) mmol/L Chloride 100 (98-107) mmol/L Carbon Dioxide 27 (22-30) mmol/L BUN 32 H (9-20) mg/dL Creatinine 1.22 (0.66-1.25) mg/dL Glucose 151 H (74-99) mg/dL Calcium 8.3 L (8.4-10.2) mg/dL Adrenal panel 08/22/23 Range/Units 06:57 Sodium 130 L (137-145) mmol/L Potassium 4.1 (3.5-5.1) mmol/L Chloride 100 (98-107) mmol/L Carbon Dioxide 27 (22-30) mmol/L BUN 32 H (9-20) mg/dL Creatinine 1.22 (0.66-1.25) mg/dL Glucose 151 H (74-99) mg/dL Calcium 8.3 L (8.4-10.2) mg/dL Total Bilirubin 0.7 (0.2-1.3) mg/dL AST 91 H (17-59) U/L ALT 68 H (4-49) U/L Alkaline Phosphatase 61 (38-126) U/L Total Protein 5.5 L (6.3-8.2) g/dL Albumin 2.8 L (3.5-5.0) g/dL - Imaging Additional studies: Transthoracic 2D echocardiogram results reviewed. Assessment and Plan Assessment: Severe aortic valve stenosis, peak velocity 4.22 m/s, peak gradient 71 mmHg, mean gradient 46 mmHg Moderate aortic valve regurgitation History of coronary artery disease with previous CABG and PCI, Plavix currently on hold secondary to hematuria Hypertension Hyperlipidemia Elevated troponins History of urine retention requiring Turcios catheter, history of hematuria Anemia, 3 units of packed red blood cells transfused Atrial fibrillation, Eliquis currently on hold secondary to hematuria COPD Remote history of nicotine dependence quit smoking in 1959 Plan: The patient was seen and examined at his bedside on the third floor cardiac stepdown unit. His chart and diagnostics reviewed. His case was discussed in detail with Dr. Jose An from cardiothoracic surgery. Once the patient has recovered from his hematuria, he is willing to proceed with TAVR workup once he is medically cleared. Medical management per primary care, and other consultants. The patient has been given information on TAVR procedure. Thank you Dr. Peters for this consult. I have personally seen and examined the patient, performed the documentation and the assessment and plan as written. Number of minutes spent on the visit: 30. PRANEETH Pagan Attending Addendum: Pt seen and evaluated with PIGMENT PUSHER above. Agree with his assessme nt and plan. I spent 35 minutes reviewing the data and discussing the plan of care with the patient and the care team. Time with Patient: Greater than 30
--- NOTE | 2023-08-22 13:13 | P.PN ---
Subjective Progress Note Date: 08/22/23 Principal diagnosis: Urinary clot retention The patient underwent cystoscopy with evacuation of clot, fulguration of bleeders on 08/19/2023. He remains comfortable, and the Turcios catheter is draining clear yellow urine with CBI running slowly. However, the catheter did require irrigation overnight and clots were removed. Objective - Vital Signs Vital signs: Vital Signs Temp 98.2 F 08/22/23 04:00 Pulse 54 L 08/22/23 04:00 Resp 17 08/22/23 04:00 BP 109/51 08/22/23 04:00 Pulse Ox 96 08/22/23 04:00 FiO2 Intake & Output 08/21/23 08/22/23 08/22/23 18:59 06:59 18:59 Intake Total 738 281 Output Total 525 1300 Balance 213 -1019 Intake: Oral 118 Blood Product 620 281 Rc As-1 Unit 310 [id number] Rc Pheresis 2 As3 Unit 0 281 [id number] Output: Urine 525 1300 Other: Voiding Method Indwelling Catheter Indwelling Catheter - Constitutional General appearance: Present: average body habitus, cooperative, no acute distress - Gastrointestinal General gastrointestinal: Absent: distended, soft, tenderness - Psychiatric Psychiatric: Present: A&O x's 3 - Labs CBC & Chem 7: 08/22/23 06:57 08/22/23 06:57 Labs: Abnormal Lab Results - Last 24 Hours (Table) 08/21/23 08/21/23 08/21/23 Range/Units 07:36 14:54 20:37 WBC 15.7 H (3.8-10.6) k/uL RBC 2.91 L (4.30-5.90) m/uL Hgb 8.5 L D (13.0-17.5) gm/dL Hct 26.2 L (39.0-53.0) % RDW 17.2 H (11.5-15.5) % Neutrophils # (1.3-7.7) k/uL Lymphocytes # (1.0-4.8) k/uL Troponin I 3.060 H* (0.000-0.034) ng/mL Crossmatch See Detail 08/21/23 08/22/23 Range/Units 20:37 06:57 WBC 13.0 H (3.8-10.6) k/uL RBC 2.86 L (4.30-5.90) m/uL Hgb 8.7 L (13.0-17.5) gm/dL Hct 25.6 L (39.0-53.0) % RDW 18.0 H (11.5-15.5) % Neutrophils # 11.7 H (1.3-7.7) k/uL Lymphocytes # 0.7 L (1.0-4.8) k/uL Troponin I 4.920 H* (0.000-0.034) ng/mL Crossmatch Assessment and Plan (1) Gross hematuria Current Visit: Yes Status: Acute Priority: High Code(s): R31.0 - GROSS HEMATURIA SNOMED Code(s): 829838031 (2) Urinary retention Current Visit: Yes Status: Acute Code(s): R33.9 - RETENTION OF URINE, UN SPECIFIED SNOMED Code(s): 842304139 Plan: Continue Turcios catheter drainage, resume CBI as needed. Patient may be discharged home with the Turcios catheter once medically stable. I have suggested that an indwelling catheter remain in place for several weeks, though at some point it may be exchanged for a smaller, more comfortable catheter.
[2023-08-22] MEDS: ASPIRIN 81 MG PO SCH (17:16)
[2023-08-22 22:08] LABS: Anisocytosis Slight; HCT 28.1 % (39.0-53.0); Hypochromasia Slight; MCH 29.3 pg (25.0-35.0); MCHC 32.2 g/dL (31.0-37.0); Mean Platelet Volume 8.8; Platelet Count 185 k/uL (150-450); Poikilocytosis Slight; RBC 3.08 m/uL (4.30-5.90); RDW 17.5 % (11.5-15.5); WBC 12.9 k/uL (3.8-10.6)
--- NOTE | 2023-08-23 06:48 | PN ---
PROGRESS NOTE I placed the patient on nitroglycerin yesterday due to change in EKG with some ischemia. He had chest pain in the morning with ambulation after eating and I ordered Nitro-Bid. Wait for Cardiology to see the patient. His blood pressure nitroglycerin. He has been having chest pain. Cardiology. Await for the re- evaluation. OBJECTIVE: CARDIOVASCULAR: S1, S2. ABDOMEN: Distended. GI: Soft. HEMATOLOGY: Negative Homans. ASSESSMENT: Unstable angina. Abnormal EKG compared to prior. I ordered troponins. I have put him on Nitro-Bid. Await for cardiology recommendations. As far as anemia, give him 1 unit of blood. We will check his hemoglobin in the morning, which is now up to 8.7 today, which should help everything. I placed on Nitro-Bid and troponin went up from 3 up to 4.9, blood pressure 125/55, O2 95-99. Assess prognosis. Await for Cardiology consult. We will get his hemoglobin up. PT/OT. Possibly home if cleared by Cardiology once he gets his hemoglobin up. MMODL / IJN: [id number] /
[2023-08-23 07:45] LABS: Anisocytosis Slight; HCT 26.4 % (39.0-53.0); HGB 8.7 gm/dL (13.0-17.5); Hypochromasia Slight; MCH 29.8 pg (25.0-35.0); MCHC 33.1 g/dL (31.0-37.0); MCV 90.1 fL (80.0-100.0); Mean Platelet Volume 8.5; Platelet Count 166 k/uL (150-450); Poikilocytosis Slight; RBC 2.93 m/uL (4.30-5.90); RDW 17.6 % (11.5-15.5); WBC 13.6 k/uL (3.8-10.6)
--- NOTE | 2023-08-23 08:55 | P.PN ---
Subjective Progress Note Date: 08/23/23 Patient was seen and treated by Dr Bay for gross hematuria. He had clot evacuation and fulgaration of bleeders at the bladder neck. The urine is clear. Objective - Vital Signs Vital signs: Vital Signs Temp 97.7 F 08/23/23 04:00 Pulse 64 08/23/23 08:49 Resp 20 08/23/23 08:48 BP 123/57 08/23/23 08:48 Pulse Ox 100 08/23/23 08:48 FiO2 21 08/23/23 08:40 Intake & Output 08/22/23 08/23/23 08/23/23 18:59 06:59 18:59 Intake Total 570 Output Total 900 900 Balance -330 -900 Weight 84.1 kg Intake: Oral 570 Output: Urine 900 900 Other: Voiding Method Indwelling Catheter Indwelling Catheter - Labs CBC & Chem 7: 08/23/23 07:12 08/22/23 06:57 Labs: Abnormal Lab Results - Last 24 Hours (Table) 08/22/23 08/23/23 Range/Units 21:51 07:12 WBC 12.9 H 13.6 H (3.8-10.6) k/uL RBC 3.08 L 2.93 L (4.30-5.90) m/uL Hgb 9.0 L 8.7 L (13.0-17.5) gm/dL Hct 28.1 L 26.4 L (39.0-53.0) % RDW 17.5 H 17.6 H (11.5-15.5) % Assessment and Plan Assessment: Impresiion: Gross hematuria with clot retention treated with cysto, fulgaration and clot evacuation. Recommendations. Dr Bay recommended leaving the catheter for a few weeks. with respect to anticoagulation and cardiac catheter there is the obvious kevin of recurrence of the bleeding that could require anesthetic. the decision will have to be made by cardiology as they know the necessity of this and the risks urologically
[2023-08-23] MEDS ORDERED: ALPRAZolam 0.25 MG TAB PO PRN (10:48)
[2023-08-23] MEDS ORDERED: NITROGLYCERIN SL TABS 0.4 MG TAB SUBLINGUAL PRN (10:48)
[2023-08-23] MEDS ORDERED: ALPRAZolam 0.5 MG TAB PO PRN (10:48)
[2023-08-23] MEDS: ATORVASTATIN 80 MG TAB PO STA (12:08)
[2023-08-23] MEDS: ASPIRIN 325 MG TAB PO STA (12:08)
--- NOTE | 2023-08-23 13:38 | P.PN ---
Subjective Progress Note Date: 08/23/23 HISTORY OF PRESENT ILLNESS: This is a 87-year-old male with a past medical history significant for prostate cancer, urinary retention, coronary artery disease with previous CABG and PCI, hypertension, hyperlipidemia, and aortic stenosis. Patient follows in the office with Dr. Rhoades. We have been asked to see the patient in consultation for elevated troponins. Patient examined at the bedside. Patient states he sees Dr. Landis on an outpatient basis. He states that he had an indwelling catheter t hat was removed in the office by Dr. Landis. He states once he returned home and self cath for the first time about 3 hours later he had gross hematuria with blood clots. He states that he waited a couple hours and tried again thinking it was may be just trauma related to having the catheter removed but that hematuria continued so he came to the hospital for further evaluation. Patient continues to have hematuria at the time of examination. Patient denies any chest pain or pressure. He denies any shortness of breath. Vital signs are stable. DIAGNOSTICS: - EKG reveals sinus bradycardia with no signs of acute ischemia - Chest xray negative for acute process - Laboratory data: WBC 8.4. Hemoglobin 8.6. Platelet count 214. Sodium 132. Potassium 3.9. BUN 18. Creatinine 0.97. Troponin 0. 129. 0.170. 0.222. proBNP 5010. - Current home cardiac medications include Plavix 75 mg daily, Toprol tartrate 12.5 mg twice a day, aspirin 81 mg daily, losartanhydrochlorothiazide 50-12.5 mg daily, rosuvastatin 5 mg every 48 hours. - Most recent echocardiogram obtained in June 2023 revealing ejection fraction 55%, mild LVH, mild to moderate aortic regurgitation, severe aortic stenosis, mild to moderate mitral regurgitation, mild mitral stenosis, moderate tricuspid regurgitation - Cardiac catheterization history: October 2022 with stenting of the proximal OM and mid circumflex. iFR of right coronary artery. 08/18/2023 Patient examined this morning at the bedside. Patient currently denies chest pain or pressure. He denies shortness of breath. Patient has continuous bladder irrigation running. Urine is blood-tinged without clots today. 08/18 patient seen and examined. Patient still having some hematuria. Looking undergo cystoscopy today with urology. He has been off of antiplatelets. Denies any further chest pain. His echocardiogram that showed preserved EF with severe aortic stenosis. Lambda and Galateo light chains both mildly elevated 08/19 patient seen and examined. Patient's hematuria has improved. He underwent Cystoscopy with urine now clear. He does admit to some atypical upper chest pain when he is moving. He has had this fairly persistently. Denies any shortness of breath. 08/20 Patient reports that he had chest pain for approximately 45 minutes this morning while laying in bed and this did radiate to his back. His hemoglobin this morning was 6.9 and he received 1 unit PRBCs. He denies any hematuria. Chest pain has resolved. 08/22 Patient is seen today in follow-up. He is complaining of shoulder pain no abdominal pain. No chest pain. Blood pressure 123/57, heart rate 63, pulse ox 100% on room air. Repeat blood work reveals WBC 13.6, hemoglobin 8.7. BUN 32 creatinine 1.22. Repeat troponins were 3.06 and 4.92. PHYSICAL EXAM: VITAL SIGNS: Reviewed. GENERAL: Well-developed in no acute distress. HEENT: Head is normocephalic. Pupils are equal, round. Sclerae anicteric. Mucous membranes of the mouth are moist. Neck supple. No JVD or thyromegaly LUNGS: Respirations even and unlabored. Lungs essentially clear to auscultation bilaterally. HEART: Regular rate and rhythm. S1 and S2 heard. Systolic murmur noted. ABDOMEN: Soft. Nondistended. Nontender. EXTREMITIES: Normal range of motion. No clubbing or cyanosis. Peripheral pulses intact. Trace bilateral lower extremity edema NEUROLOGIC: Awake and alert. Oriented x 3. ASSESSMENT: Gross hematuria, resolved Urinary retention requiring Turcios catheter History of prostate cancer with radiation Elevated troponins likely type II [place] secondary to oxygen supply/demand mismatch secondary to anemia due to gross hematuria Coronary artery disease with previous CABG and PCI Severe Hypertension Hyperlipidemia Mildly elevated Lambda and Galateo light chains not typical of [place] cardiac amyloid PLAN: Continue patient on current medications: Aspirin 81 mg daily, atorvastatin 10 mg every 48 hours, Lopressor 25 mg twice daily Due to hematuria, continue to hold aspirin and Plavix at this time as patient's last stent was in October 2022 patient will need further workup of his severe aortic stenosis outpatient Plan for cardiac catheterization which will most likely be performed later today. We will continue to monitor. Nurse practitioner note has been reviewed, I agree with documented findings and plan of care. Patient was seen and examined. Objective - Vital Signs Vital signs: Vital Signs Temp 97.7 F 08/23/23 04:00 Pulse 64 08/23/23 08:49 Resp 20 08/23/23 08:48 BP 123/57 08/23/23 08:48 Pulse Ox 100 08/23/23 08:48 FiO2 21 08/23/23 08:40 Intake & Output 08/22/23 08/23/23 08/23/23 18:59 06:59 18:59 Intake Total 570 Output Total 900 900 Balance -330 -900 Weight 84.1 kg Intake: Oral 570 Output: Urine 900 900 Other: Voiding Method Indwelling Catheter Indwelling Catheter Indwelling Catheter - Labs CBC & Chem 7: 08/23/23 07:12 08/22/23 06:57 Labs: Abnormal Lab Results - Last 24 Hours (Table) 08/22/23 08/23/23 Range/Units 21:51 07:12 WBC 12.9 H 13.6 H (3.8-10.6) k/uL RBC 3.08 L 2.93 L (4.30-5.90) m/uL Hgb 9.0 L 8.7 L (13.0-17.5) gm/dL Hct 28.1 L 26.4 L (39.0-53.0) % RDW 17.5 H 17.6 H (11.5-15.5) %
[2023-08-23] MEDS ORDERED: HEPARIN SODIUM 1,000 UN/ML (10ML VL) ONE (13:48)
[2023-08-23] MEDS ORDERED: VERAPAMIL 2.5 MG/ML 2 ML AMP ONE (13:48)
[2023-08-23] MEDS ORDERED: LIDOCAINE 1% INJ 10MG/ML (20 ML MDV) ONE (13:48)
[2023-08-23] MEDS ORDERED: fentaNYL (PF) 50 MCG/ML 2 ML AMP ONE (13:48)
[2023-08-23] MEDS: HEPARIN SODIUM,PORCINE (1 ML) 2,500 UNIT in SODIUM CHLORIDE 0.9% 250 ML IRRIGATION PRN (13:52)
[2023-08-23] MEDS: SODIUM CHLORIDE 0.9% 1,000 ML IV ONE (13:52)
[2023-08-23] MEDS: HEPARIN SODIUM,PORCINE 10,000 UNIT in SODIUM CHLORIDE 0.9% 1,000 ML IRRIGATION PRN (13:52)
[2023-08-23 13:57] VITALS: BMI 26.6
[2023-08-23] MEDS: MIDAZOLAM 2 MG/2 ML VIAL IVP ONE (14:20)
[2023-08-23] MEDS: LIDOCAINE 1% INJ 10MG/ML (20 ML MDV) SQ ONE (14:25)
[2023-08-23] MEDS: fentaNYL (PF) 50 MCG/ML 2 ML AMP IVP ONE (14:27)
[2023-08-23] MEDS: IOPAMIDOL-370 200ML BTL INJ ONE (14:48)
--- NOTE | 2023-08-23 15:31 | P.PN ---
Subjective Progress Note Date: 08/23/23 Principal diagnosis: Iron deficient anemia, hematuria In follow-up today patient is preparing for cardiac catheterization. He is in good spirits. He denies any shortness of breath, chest pain, unusual weakness or fatigue, troponins were significantly elevated, he also has severe aortic valve stenosis. He has been seen by urology for hematuria and had ablation for suspect cystitis/prostatitis because of history of radiation for prostate cancer. He is no longer experiencing hematuria. Hemoglobin is stable at 8.7 today. Patient had no other complaints on a 10 point review of systems. Objective - Vital Signs Vital signs: Vital Signs Temp 97.7 F 08/23/23 04:00 Pulse 71 08/23/23 12:05 Resp 16 08/23/23 12:05 BP 140/63 08/23/23 12:05 Pulse Ox 98 08/23/23 12:05 FiO2 21 08/23/23 08:40 Intake & Output 08/22/23 08/23/23 08/23/23 18:59 06:59 18:59 Intake Total 570 350 Output Total 900 900 Balance -330 -900 350 Weight 84.1 kg 84.1 kg Intake: IV 350 Oral 570 Output: Urine 900 900 Other: Voiding Method Indwelling Catheter Indwelling Catheter Indwelling Catheter - Constitutional General appearance: Present: average body habitus, cooperative, no acute distress - EENT Eyes: Present: anicteric sclerae, EOMI ENT: Present: hearing grossly normal - Respiratory Details: Respirations even and unlabored at rest - Cardiovascular Details: Skin is warm and dry to the touch, patient is a little pale - Peripheral edema leg Peripheral Edema: bilateral: None - Integumentary Integumentary: Present: pale - Neurologic Neurologic: Present: CNII-XII intact - Musculoskeletal Musculoskeletal: Present: generalized weakness, strength equal bilaterally - Psychiatric Psychiatric: Present: A&O x's 3, appropriate affect, intact judgment & insight - Labs CBC & Chem 7: 08/23/23 07:12 08/22/23 06:57 Labs: Abnormal Lab Results - Last 24 Hours (Table) 08/22/23 08/23/23 Range/Units 21:51 07:12 WBC 12.9 H 13.6 H (3.8-10.6) k/uL RBC 3.08 L 2.93 L (4.30-5.90) m/uL Hgb 9.0 L 8.7 L (13.0-17.5) gm/dL Hct 28.1 L 26.4 L (39.0-53.0) % RDW 17.5 H 17.6 H (11.5-15.5) % Assessment and Plan (1) CAD (coronary artery disease) Current Visit: Yes Status: Acute Priority: High Code(s): I25.10 - ATHSCL HEART DISEASE OF [place] CORONARY ARTERY W/O ANG PCTRS SNOMED Code(s): 08983836 (2) Hematuria Current Visit: Yes Status: Acute Priority: Medium Code(s): R31.9 - HEMATURIA, UNSPECIFIED SNOMED Code(s): 99050217 (3) Anemia Current Visit: Yes Status: Acute Priority: Medium Code(s): D64.9 - ANEMIA, UNSPECIFIED SNOMED Code(s): 924314314 Plan: Hematuria, 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 Bay, clots were noted, some oozing of blood noted near the posterior vesicle neck, this was cauterized. -Patient has required urological procedures in the past for similar symptoms. -CBI cont. Hematuria improved -Pt has significant cardiac Hx requiring anticoagulation and antiplatelet therapy. Eliquis held. Aspirin and Plavix per Cardiology right now. Hematuria has stopped, Hgb stable. Cont to moitor pt and counts Anemia, iron deficiency -Presented with hematuria, this has been addressed with cystoscopy, clots removed and bleeding cauterized. -Hgb is typically in the 10 range. Oral iron supplementation has been problematic to take consistently due to GI side effects. No other bleeding reported. Last colonoscopy approx 2 years ago, normal per patient, EGD > 5 yrs ago. 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 Most likely 2/2 acute (hematuria) and chronic losses, exacerbated by anticoag and antiplatelet treatment. Parenteral iron ordered. 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 K/L elevated slightly but ratio normal. Likely incidental finding. This will be followed up in the future when seen in ofc -Continue to monitor CBC. Transfuse for hgb < 7 or if symptomatic -F/U in DC plan to recheck iron studies and iron transfusions as needed Discussed above with pt and his advocate at the bedside. They verbalized understanding the plan
[2023-08-23 21:35] LABS: Anisocytosis Slight; HCT 24.9 % (39.0-53.0); HGB 7.7 gm/dL (13.0-17.5); Hypochromasia Moderate; MCH 29.6 pg (25.0-35.0); MCHC 31.1 g/dL (31.0-37.0); Macrocytosis Slight; Platelet Count 193 k/uL (150-450); RBC 2.61 m/uL (4.30-5.90); RDW 17.4 % (11.5-15.5); WBC 15.1 k/uL (3.8-10.6)
[2023-08-23 22:08] LABS: MCV 95.4 fL (80.0-100.0)
[2023-08-23] MEDS: methylPREDNISolone SOD SUCCI 40 MG/ML 1 ML VIAL IV SCH (22:10)
[2023-08-23] MEDS: SODIUM FERRIC GLUCONAT-SUCROSE 125 MG in SODIUM CHLORIDE 0.9% 100 ML IVPB SCH (23:50)
--- NOTE | 2023-08-24 00:07 | PN ---
PROGRESS NOTE SUBJECTIVE: This is an 87-year-old white male with acute urinary retention, status post cauterization of the bladder neck. Hemoglobin is stable at 8.9 to 9. Recheck his hemoglobin again in the morning. He has had no bleeding in 2 days, status post cystoscopy. Cardiology did a heart catheterization on him today due to the change in EKG, chest pain, was started on nitroglycerin by me 2 days ago. He was found to have 80% blockage in 1 of the right coronary arteries. Hopefully, he will have angioplasty done in 2 weeks for patient and then TAVR surgery from Dr. Thapa's group . OBJECTIVE: VITAL SIGNS: Appear to be stable. Blood pressure is low. CARDIOVASCULAR: S1, S2. LUNGS: Clear. GI: Soft. PSYCH: Fair mood and affect. NEUROLOGIC: Alert and oriented x3. OPHTHALMOLOGIC: Pupils equal, round, reactive. PLAN: Continue current treatment. Check hemoglobin in the morning. Continue Turcios catheter. No signs of bleeding. Blood thinner per Cardiology. Blood pressure is stable. Prognosis is guarded. Follow up in next 24 to 48 hours. MMODL / IJN: [id number] /
--- NOTE | 2023-08-24 01:37 | CC ---
CARDIAC CATHETERIZATION REPORT PROCEDURES PERFORMED: Coronary angiography. PERFORMED BY: Dr. Janice Rhoades. ANESTHESIA: Moderate conscious sedation time was 24 minutes. The patient was administered Versed and fentanyl. Oxygen saturation, hemodynamics, and EKG were monitored closely. CLINICAL INFORMATION: Mr. Shubham Landa is an 87-year-old elderly gentleman with a known history of CAD, previous bypass surgery that was performed in 1995 with a PEARSON to LAD and 2 vein graft to the diagonal branch and obtuse marginal branch of circumflex. Over the years, the 2 vein grafts are occluded, but PEARSON to LAD was patent. I performed previous PCI of proximal obtuse marginal, mid circumflex as well. LAD was totally occluded after a diagonal branch, which had ostial narrowing of the LAD noted, but the diagonal had moderate calcification. PEARSON to LAD was patent during the last cardiac cath in October 2022. At that time, I performed stenting of the proximal obtuse marginal and mid circumflex with a drug-eluting stent, shock wave lithotripsy, and intravascular ultrasound. RCA had a 55% mid lesion. IFR was negative at that time. Because of increasing anginal symptoms and elevated troponin, he was hospitalized and also has severe aortic stenosis and may require percutaneous aortic valve implant. However, he developed significant hematuria requiring cauterization by urologist, which was performed on the . He was advised cardiac cath with the understanding we will not do any intervention, so that we will avoid anticoagulating him at least for another week. Risks, benefits, options, and rationale were explained. I evaluated the patient this morning and spoke to the patient and family. PROCEDURE NOTE: Under local anesthesia and strict aseptic precautions, a 6-[place] introducer was placed in the right femoral artery. Micropuncture needle technique was used. I used a 5- [place] dilator and then a 6-[place] dilator, and with a stiff Amplatz wire, I placed a long sheath because of tortuosity in the iliac system. Standard Aung catheters were used for coronary angiography and the catheter was taken out. The sheath was taken out and Angio-Seal device used to secure hemostasis, and he was sent to the room in a stable condition. Details were discussed with the patient and family. I am recommending that we will pursue medical therapy for another one week or so and next Wednesday I will perform PCI of circumflex marginal. Discussed with the urologist, who is in agreement with this. The risk will not be 0, but at least bleeding risk will be attenuated. We will avoid Eliquis and Plavix in the interim. CARDIAC CATHETERIZATION FINDINGS: CORONARY ANGIOGRAPHY: Left main coronary artery is widely patent with decent flow. It bifurcates into LAD and circumflex. Some calcification noted. LEFT ANTERIOR DESCENDING CORONARY ARTERY: This is totally occluded right after a diagonal branch, and the ostium of the LAD has 60% to 70% narrowing and it gives off a diagonal branch, but LAD is totally occluded, and the PEARSON was patent on a previous angiogram in October and I did not inject this time. LEFT POSTERIOR CIRCUMFLEX CORONARY ARTERY: This was stented in October 2022, now has in-stent restenosis of at least 80% in the proximal one-third of the stent. This was heavily calcified and I performed shockwave lithotripsy and intravascular ultrasound with full stent expansion and apposition at that time. Now, we have restenoses. RIGHT CORONARY ARTERY [place]IN[place] VESSEL: Has a 55% mid lesion, angiographically unchanged from previous cath from 2022 and IFR was negative at that time. FINAL IMPRESSION: This patient has a restenotic lesion in the circumflex that was stented in October. Left main is patent. LAD is totally occluded, but PEARSON was not injected, patent by previous angiogram from October. Circumflex has restenotic lesion. RCA is unchanged at 55% mid lesion with previously negative IFR. RECOMMENDATIONS: After much discussion and also talking to the urologist, Dr. Busby, we will wait for a week and then I will perform intervention of this vessel, and subsequently, he will have percutaneous aortic valve implant for severe aortic stenosis as well. The patient and family understand this and we will discharge him on medical therapy in the next 48 hours. MMODL / IJN: [id number] /
--- NOTE | 2023-08-24 07:36 | P.PN ---
Subjective Progress Note Date: 08/24/23 The patient was evaluated and treated by Dr Bay for gross hematuria due to prostate bleeding. His urine remains clear. He underwent a cardiac cath yesterday without and recurrence of the blodd. He feels well this am Objective - Vital Signs Vital signs: Vital Signs Temp 97.7 F 08/24/23 04:00 Pulse 56 L 08/24/23 04:00 Resp 17 08/24/23 04:00 BP 136/63 08/24/23 04:00 Pulse Ox 97 08/24/23 04:00 FiO2 21 08/23/23 08:40 Intake & Output 08/23/23 08/24/23 08/24/23 18:59 06:59 18:59 Intake Total 350 Output Total 400 800 Balance -50 -800 Weight 84.1 kg 85.4 kg Intake: IV 350 Output: Urine 400 800 Other: Voiding Method Indwelling Catheter Indwelling Catheter - Labs CBC & Chem 7: 08/23/23 21:03 08/22/23 06:57 Labs: Abnormal Lab Results - Last 24 Hours (Table) 08/23/23 08/23/23 Range/Units 07:12 21:03 WBC 13.6 H 15.1 H (3.8-10.6) k/uL RBC 2.93 L 2.61 L (4.30-5.90) m/uL Hgb 8.7 L 7.7 L (13.0-17.5) gm/dL Hct 26.4 L 24.9 L (39.0-53.0) % RDW 17.6 H 17.4 H (11.5-15.5) % Assessment and Plan Assessment: Impression: gross hematuria secondary to prostate bleeding, cleared Recommendations.: Dr Bay recommended the cath stay in for a couple of weeks I will make a fu appoinment with Dr Bay in 2-3 weeks.
[2023-08-24 09:18] VITALS: TEMP 97.9
[2023-08-24] MEDS: HYDROcodone/APAP 5-325MG 1 EACH TAB PO PRN (09:19)
[2023-08-24] MEDS: ATORVASTATIN 40 MG TAB PO SCH (09:19)
[2023-08-24 10:20] LABS: Anisocytosis Slight; Basophils % (A) 0 %; Eosinophils % (A) 0 %; HCT 32.8 % (39.0-53.0); HGB 10.3 gm/dL (13.0-17.5); Hypochromasia Slight; Lymphocytes # (A) 0.7 k/uL (1.0-4.8); Lymphocytes % (A) 5 %; MCH 29.5 pg (25.0-35.0); MCHC 31.5 g/dL (31.0-37.0); MCV 93.5 fL (80.0-100.0); Mean Platelet Volume 8.9; Monocytes # (A) 0.5 k/uL (0-1.0); Monocytes % (A) 4 %; Neutrophils % (A) 90 %; Platelet Count 193 k/uL (150-450); RBC 3.51 m/uL (4.30-5.90); RDW 17.1 % (11.5-15.5); WBC 14.4 k/uL (3.8-10.6)
[2023-08-24 10:24] LABS: ALT 59 U/L (4-49); AST 37 U/L (17-59); African American GFR (CKD) 78 (>60 ml/min/1.73 sqM); Albumin 3.3 g/dL (3.5-5.0); Alkaline Phosphatase 67 U/L (38-126); Anion Gap 6 mmol/L; Blood Urea Nitrogen 29 mg/dL (9-20); Calcium 8.6 mg/dL (8.4-10.2); Carbon Dioxide 24 mmol/L (22-30); Chloride 103 mmol/L (98-107); Glucose 194 mg/dL (74-99); Non-African American GFR(CKD) 67 (>60 ml/min/1.73 sqM); Potassium 4.5 mmol/L (3.5-5.1); Sodium 133 mmol/L (137-145); Total Bilirubin 0.6 mg/dL (0.2-1.3); Total Protein 6.1 g/dL (6.3-8.2)
[2023-08-24] MEDS ORDERED: ISOSORBIDE MONONITRATE ER 15 MG TAB PO SCH (10:30)
[2023-08-24 12:46] VITALS: BP 117/63; PULSE 63; RESP 18
--- NOTE | 2023-08-24 13:39 | P.PN ---
Subjective Progress Note Date: 08/24/23 HISTORY OF PRESENT ILLNESS: This is a 87-year-old male with a past medical history significant for prostate cancer, urinary retention, coronary artery disease with previous CABG and PCI, hypertension, hyperlipidemia, and aortic stenosis. Patient follows in the office with Dr. Rhoades. We have been asked to see the patient in consultation for elevated troponins. Patient examined at the bedside. Patient states he sees Dr. Landis on an outpatient basis. He states that he had an indwelling catheter t hat was removed in the office by Dr. Landis. He states once he returned home and self cath for the first time about 3 hours later he had gross hematuria with blood clots. He states that he waited a couple hours and tried again thinking it was may be just trauma related to having the catheter removed but that hematuria continued so he came to the hospital for further evaluation. Patient continues to have hematuria at the time of examination. Patient denies any chest pain or pressure. He denies any shortness of breath. Vital signs are stable. DIAGNOSTICS: - EKG reveals sinus bradycardia with no signs of acute ischemia - Chest xray negative for acute process - Laboratory data: WBC 8.4. Hemoglobin 8.6. Platelet count 214. Sodium 132. Potassium 3.9. BUN 18. Creatinine 0.97. Troponin 0. 129. 0.170. 0.222. proBNP 5010. - Current home cardiac medications include Plavix 75 mg daily, Toprol tartrate 12.5 mg twice a day, aspirin 81 mg daily, losartanhydrochlorothiazide 50-12.5 mg daily, rosuvastatin 5 mg every 48 hours. - Most recent echocardiogram obtained in June 2023 revealing ejection fraction 55%, mild LVH, mild to moderate aortic regurgitation, severe aortic stenosis, mild to moderate mitral regurgitation, mild mitral stenosis, moderate tricuspid regurgitation - Cardiac catheterization history: October 2022 with stenting of the proximal OM and mid circumflex. iFR of right coronary artery. 08/18/2023 Patient examined this morning at the bedside. Patient currently denies chest pain or pressure. He denies shortness of breath. Patient has continuous bladder irrigation running. Urine is blood-tinged without clots today. 08/18 patient seen and examined. Patient still having some hematuria. Looking undergo cystoscopy today with urology. He has been off of antiplatelets. Denies any further chest pain. His echocardiogram that showed preserved EF with severe aortic stenosis. Lambda and [address] light chains both mildly elevated 08/19 patient seen and examined. Patient's hematuria has improved. He underwent Cystoscopy with urine now clear. He does admit to some atypical upper chest pain when he is moving. He has had this fairly persistently. Denies any shortness of breath. 08/20 Patient reports that he had chest pain for approximately 45 minutes this morning while laying in bed and this did radiate to his back. His hemoglobin this morning was 6.9 and he received 1 unit PRBCs. He denies any hematuria. Chest pain has resolved. 08/22 Patient is seen today in follow-up. He is complaining of shoulder pain no abdominal pain. No chest pain. Blood pressure 123/57, heart rate 63, pulse ox 100% on room air. Repeat blood work reveals WBC 13.6, hemoglobin 8.7. BUN 32 creatinine 1.22. Repeat troponins were 3.06 and 4.92. 08/23 Yesterday, patient underwent cardiac catheterization with Dr. FLORI Rhoades which found restenotic lesion in the circumflex that was recently stented in October. Left main is patent. LAD is totally occluded but PEARSON was not injected, patent by previous angiogram from October. Circumflex has restenotic lesion. RCA is unchanged at 55% mid lesion and previous negative IFR. Plan is to wait for 1 week and do intervention and discharge in the next 48 hours on medical therapy.Blood pressure 117/63, heart rate 63, pulse ox 98% on room air. Patient is receiving I the iron. Patient is normally on Crestor at home which he tolerates better. PHYSICAL EXAM: VITAL SIGNS: Reviewed. GENERAL: Well-developed in no acute distress. HEENT: Head is normocephalic. Pupils are equal, round. Sclerae anicteric. Mucous membranes of the mouth are moist. Neck supple. No JVD or thyromegaly LUNGS: Respirations even and unlabored. Lungs essentially clear to auscultation bilaterally. HEART: Regular rate and rhythm. S1 and S2 heard. Systolic murmur noted. ABDOMEN: Soft. Nondistended. Nontender. EXTREMITIES: Normal range of motion. No clubbing or cyanosis. Peripheral pulses intact. Trace bilateral lower extremity edema NEUROLOGIC: Awake and alert. Oriented x 3. ASSESSMENT: Gross hematuria, resolved Urinary retention requiring Turcios catheter History of prostate cancer with radiation Elevated troponins likely type II UT secondary to oxygen supply/demand mismatch secondary to anemia due to gross hematuria Coronary artery disease with previous CABG and PCI Severe Hypertension Hyperlipidemia Mildly elevated Lambda and [address] light chains not typical of [place] cardiac amyloid PLAN: Continue patient on current medications: Aspirin 81 mg daily, atorvastatin 40 mg every day, Lopressor 25 mg twice daily Due to hematuria, continue to hold aspirin and Plavix at this time as patient's last stent was in October 2022 Patient will be brought back in by Dr. FLORI Rhoades for stenting of the circumflex Patient will need further workup of his severe aortic stenosis outpatient Patient is cleared for discharge with the above medication changes. Note the patient is better able to tolerate Crestor at home and may be resumed on Crestor at discharge. Nurse practitioner note has been reviewed, I agree with documented findings and plan of care. Patient was seen and examined. Objective - Vital Signs Vital signs: Vital Signs Temp 97.9 F 08/24/23 09:16 Pulse 76 08/24/23 09:16 Resp 16 08/24/23 09:16 BP 121/59 08/24/23 09:16 Pulse Ox 98 08/24/23 09:16 FiO2 21 08/23/23 08:40 Intake & Output 08/23/23 08/24/23 08/24/23 18:59 06:59 18:59 Intake Total 350 358 Output Total 400 800 Balance -50 -800 358 Weight 84.1 kg 85.4 kg Intake: IV 350 Oral 358 Output: Urine 400 800 Other: Voiding Method Indwelling Catheter Indwelling Catheter - Labs CBC & Chem 7: 08/24/23 09:38 08/24/23 09:38 Labs: Abnormal Lab Results - Last 24 Hours (Table) 08/23/23 Range/Units 21:03 WBC 15.1 H (3.8-10.6) k/uL RBC 2.61 L (4.30-5.90) m/uL Hgb 7.7 L (13.0-17.5) gm/dL Hct 24.9 L (39.0-53.0) % RDW 17.4 H (11.5-15.5) %
--- NOTE | 2023-08-24 14:19 | PN ---
PROGRESS NOTE SUBJECTIVE: This 87-year-old white male status post heart catheterization, showed 80% blockage in right coronary arteries. Hemoglobin is back up to 10.3 today with the white count 14.4, which is great improvement. Sodium 133, potassium 4.5, BUN is 29, creatinine 0.99, GFR is back up to 67. Possibly discharge home if cleared by Cardiology. Wait for cardiology clearance for discharge. Blood thinners per Cardiology. No evidence of bleeding. His hemoglobin is better now. I will keep the Turcios in 2 days until he gets the angioplasty done in 2 weeks and then the tap were done just to reduce risk of bleeding with the Turcios in versus catheterizations self-catheterizations. Maybe start anticoagulation in another week and possibly can be discharged home. Possibly discharge home. He wants to go home. Please see further orders. MMODL / IJN: [id number] /
--- NOTE | 2023-08-24 17:29 | P.PN ---
Subjective Progress Note Date: 08/24/23 Principal diagnosis: Iron deficient anemia, hematuria In follow-up today patient is preparing for cardiac catheterization. He is in good spirits. He denies any shortness of breath, chest pain, unusual weakness or fatigue, troponins were significantly elevated, he also has severe aortic valve stenosis. He has been seen by urology for hematuria and had ablation for suspect cystitis/prostatitis because of history of radiation for prostate cancer. He is no longer experiencing hematuria. Hemoglobin is stable at 8.7 today. Patient had no other complaints on a 10 point review of systems. Objective - Vital Signs Vital signs: Vital Signs Temp 97.9 F 08/24/23 09:16 Pulse 63 08/24/23 12:44 Resp 18 08/24/23 12:44 BP 117/63 08/24/23 12:44 Pulse Ox 98 08/24/23 12:44 FiO2 21 08/23/23 08:40 Intake & Output 08/23/23 08/24/23 08/24/23 18:59 06:59 18:59 Intake Total 350 358 Output Total 400 800 Balance -50 -800 358 Weight 84.1 kg 85.4 kg Intake: IV 350 Oral 358 Output: Urine 400 800 Other: Voiding Method Indwelling Catheter Indwelling Catheter Indwelling Catheter - Constitutional General appearance: Present: average body habitus, cooperative, no acute distress - EENT Eyes: Present: anicteric sclerae, EOMI ENT: Present: hearing grossly normal - Respiratory Details: resp even and unlabored at rest - Cardiovascular Details: skin warm, well perfused - Peripheral edema leg Peripheral Edema: bilateral: None - Neurologic Neurologic: Present: CNII-XII intact - Musculoskeletal Musculoskeletal: Present: strength equal bilaterally - Psychiatric Psychiatric: Present: A&O x's 3, appropriate affect, intact judgment & insight - Labs CBC & Chem 7: 08/24/23 09:38 08/24/23 09:38 Labs: Abnormal Lab Results - Last 24 Hours (Table) 08/23/23 08/24/23 08/24/23 Range/Units 21:03 09:38 09:38 WBC 15.1 H 14.4 H (3.8-10.6) k/uL RBC 2.61 L 3.51 L (4.30-5.90) m/uL Hgb 7.7 L 10.3 L (13.0-17.5) gm/dL Hct 24.9 L 32.8 L (39.0-53.0) % RDW 17.4 H 17.1 H (11.5-15.5) % Neutrophils # 13.0 H (1.3-7.7) k/uL Lymphocytes # 0.7 L (1.0-4.8) k/uL Sodium 133 L (137-145) mmol/L BUN 29 H (9-20) mg/dL Glucose 194 H (74-99) mg/dL ALT 59 H (4-49) U/L Total Protein 6.1 L (6.3-8.2) g/dL Albumin 3.3 L (3.5-5.0) g/dL Assessment and Plan (1) CAD (coronary artery disease) Status: Acute Priority: High Code(s): I25.10 - ATHSCL HEART DISEASE OF [place] CORONARY ARTERY W/O ANG PCTRS SNOMED Code(s): 36576367 (2) Hematuria Status: Acute Priority: Medium Code(s): R31.9 - HEMATURIA, UNSPECIFIED SNOMED Code(s): 20928360 (3) Anemia Status: Acute Priority: Medium Code(s): D64.9 - ANEMIA, UNSPECIFIED SNOMED Code(s): 689251610 Plan: Hematuria, 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 Bay, clots were noted, some oozing of blood noted near the posterior vesicle neck, this was cauterized. -Patient has required urological procedures in the past for similar symptoms. -CBI cont. Hematuria has stopped, Hgb improved. Cont to moitor pt and counts -Pt has significant cardiac Hx requiring anticoagulation and antiplatelet therapy. Eliquis held. Aspirin and Plavix held per Cardiology right now, medical mgmt. Anemia, iron deficiency -Presented with hematuria, this has been addressed with cystoscopy, clots removed and bleeding cauterized. -Hgb is typically in the 10 range. Oral iron supplementation has been problematic to take consistently due to GI side effects. No other bleeding reported. Last colonoscopy approx 2 years ago, normal per patient, EGD > 5 yrs ago. 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 Most likely 2/2 acute (hematuria) and chronic losses, exacerbated by anticoag and antiplatelet treatment. Parenteral i carlyle ordered. 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 K/L elevated slightly but ratio normal. Likely incidental finding. This will be followed up in the future when seen in ofc -Continue to monitor CBC. Transfuse for hgb < 7 or if symptomatic -F/U in DC plan to recheck iron studies and iron transfusions as needed Discussed above with pt and his advocate at the bedside. They verbalized understanding the plan
== END 2023-08-24 16:28 | disposition home or self-care (01) | DRG 662 ==
LOC: EC 20:44 → 3SCARD 08-17 00:21 → OBSVTOIN 08-18 10:32
PROVIDERS: ADMIT Family Medicine; ATTEND Family Medicine
PROC: 30233N1 Transfusion of Nonautologous Red Blood Cells into Peripheral Vein, Percutaneous Approach (ICD-10-PCS; 2023-08-17)
PROC: 0W3R8ZZ Control Bleeding in Genitourinary Tract, Via Natural or Artificial Opening Endoscopic (ICD-10-PCS; 2023-08-19)
PROC: 0TCB8ZZ Extirpation of Matter from Bladder, Via Natural or Artificial Opening Endoscopic (ICD-10-PCS; principal; 2023-08-19 09:45)
PROC: B2111ZZ Fluoroscopy of Multiple Coronary Arteries using Low Osmolar Contrast (ICD-10-PCS; 2023-08-23)
DX: N30.41 Irradiation cystitis with hematuria (principal); I21.A1 Myocardial infarction type 2; D62 Acute posthemorrhagic anemia; T82.855A Stenosis of coronary artery stent, initial encounter; I25.10 Atherosclerotic heart disease of native coronary artery without angina pectoris; J44.9 Chronic obstructive pulmonary disease, unspecified; E78.5 Hyperlipidemia, unspecified; R33.9 Retention of urine, unspecified; C61 Malignant neoplasm of prostate; R00.1 Bradycardia, unspecified; Z92.3 Personal history of irradiation; I08.0 Rheumatic disorders of both mitral and aortic valves; I10 Essential (primary) hypertension; M19.90 Unspecified osteoarthritis, unspecified site; Y84.8 Other medical procedures as the cause of abnormal reaction of the patient, or of later complication, without mention of misadventure at the time of the procedure; Z82.3 Family history of stroke; Z88.0 Allergy status to penicillin; Z88.2 Allergy status to sulfonamides; Z88.7 Allergy status to serum and vaccine; Z87.01 Personal history of pneumonia (recurrent)
CPT/HCPCS: 36415; 51702; 71046; 80053; 81001; 82607; 82728; 82747; 82784; 83540; 83550; 83735; 83880; 83883; 83921; 84165; 84484; 85025; 85027; 85610; 85730; 86038; 86334; 86431; 86850; 86900; 86901; 86920; 93005; 93306; 93454; 94640; 94760; 96361; 96365; 96375; 96376; 99285

== ENCOUNTER 2023-08-25 02:53 | Observation (INO) | payer MEDICARE ==
--- NOTE | 2023-08-25 03:01 | ED ---
General Adult HPI - General Chief complaint: Chest Pain Stated complaint: L Shoulder Pain Time Seen by Provider: 08/25/23 02:58 Source: patient, EMS Mode of arrival: EMS - History of Present Illness Initial comments: Dictation was produced using [employer] dictation software. please excuse any grammatical, word or spelling errors. Chief Complaint: 87-year-old male presents emergency department with left shoulder pain History of Present Illness: Patient is an 87-year-old male presents emergency department left shoulder pain. Patient states woke him out of sleep. 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 Patient is scheduled to have a coronary artery stent placed Wednesday. Since his appointment he was having some on and off chest symptoms. He EMS was called however was called for left shoulder pain. Patient denies any history of left shoulder issues. Denies any diaphoresis. He has no chest pain. No nausea. History obtained partly from EMS The ROS documented in this emergency department record has been reviewed and confirmed by me. Those systems with pertinent positive or negative responses have been documented in the HPI. All other systems are other negative and/or noncontributory. - Related Data Home Medications Medication Instructions Recorded Confirmed Ubidecarenone [Co Q-10] 200 mg PO DAILY 07/26/16 08/17/23 Pantoprazole [Protonix] 40 mg PO HS 09/06/17 08/17/23 [place]-3/Dha/Epa/Fish Oil [Fish Oil 1 cap PO DAILY 11/16/18 08/17/23 500 mg Softgel] Acetaminophen Tab [Tylenol] 500 mg PO Q6HR PRN 11/12/22 08/17/23 Ipratropium-Albuterol Nebulize 3 ml INHALATION RT-BID 11/12/22 08/17/23 [Duoneb 0.5 mg-3 mg/3 ml Soln] ALPRAZolam [Xanax] 0.25 mg PO HS 08/17/23 08/17/23 Pkek-Afpe-Iykw 1 tab PO HS 08/17/23 08/17/23 Prevagen 1 cap PO DAILY 08/17/23 08/17/23 Rosuvastatin Calcium [Crestor] 5 mg PO Q48H 08/17/23 08/17/23 Previous Rx's Medication Instructions Recorded Aspirin 81 mg PO DAILY #7 tab 11/18/22 Atorvastatin [Lipitor] 40 mg PO DAILY 90 Days #90 tab 08/24/23 Isosorbide Mononitrate ER [Imdur] 15 mg PO DAILY 90 Days #90 tab 08/24/23 Metoprolol Tartrate [Lopressor] 25 mg PO BID 90 Days #180 tab 08/24/23 Nitroglycerin Sl Tabs [Nitrostat] 0.4 mg SUBLINGUAL Q5M PRN 90 Days 08/24/23 #1000 tab Oxybutynin Xl [Ditropan XL] 5 mg PO DAILY 30 Days #30 tab 08/24/23 Allergies Allergy/AdvReac Type Severity Reaction Status Date / Time Penicillins Allergy Rash/Hives Verified 08/17/23 08:22 Sulfa (Sulfonamide Allergy Rash/Hives Verified 08/17/23 08:22 Antibiotics) tetanus and diphtheria Allergy Rash/Hives/ Verified 08/17/23 08:22 toxoids Blisters Review of Systems ROS Statement: Those systems with pertinent positive or pertinent negative responses have been documented in the HPI. ROS Other: All systems not noted in ROS Statement are negative. Past Medical History Past Medical History: Atrial Fibrillation, Coronary Artery Disease (CAD), Cancer, Chest Pain / Angina, GERD/Reflux, Hyperlipidemia, Hypertension, Osteoarthritis (OA), Pneumonia, Prostate Disorder Additional Past Medical History / Comment(s): prostate CA-radiation (2006) , self caths since radiation tx to prostate, aortic stenosis., See Cardiology H & P. History of Any Multi-Drug Resistant Organisms: None Reported Past Surgical History: Coronary Bypass/CABG, Heart Catheterization With Stent, Prostate Surgery Additional Past Surgical History / Comment(s): Angioplasty, heart cath (Nov 2021), Heart caths with stents, 2011, 2016 Past Anesthesia/Blood Transfusion Reactions: No Reported Reaction, Motion Sickness Date of Last Stent Placement:: 2016 Past Psychological History: Anxiety, Depression Smoking Status: Former smoker Past Alcohol Use History: Occasional Past Drug Use History: None Reported - Past Family History Brother(s) Family Medical History: Cancer, Coronary Artery Disease (CAD), Prostate Disorder Additional Family Medical History / Comment(s): Patient has a total of 4 brothers all with history of coronary artery disease. Sister(s) Family Medical History: Cancer, Coronary Artery Disease (CAD) Additional Family Medical History / Comment(s): . Father Family Medical History: Congestive Heart Failure (CHF), Coronary Artery Disease (CAD), Respiratory Disorder Additional Family Medical History / Comment(s): Father at age 76 from coronary artery disease with history of emphysema. Mother Family Medical History: Congestive Heart Failure (CHF), Myocardial Infarction ([place]) Additional Family Medical History / Comment(s): Mother at age 50 from a myocardial infarction. Daughter(s) Family Medical History: No Reported History Additional Family Medical History / Comment(s): . General Exam - General Exam Comments Initial Comments: PHYSICAL EXAM: General Impression: Alert and oriented x3, not in acute distress HEENT: Normocephalic atraumatic, extra-ocular movements intact, pupils equal and reactive to light bilaterally, mucous membranes moist. Cardiovascular: Heart regular rate and rhythm Chest: Able to complete full sentences, no retractions, no tachypnea Abdomen: abdomen soft, non-tender, non-distended, no organomegaly Musculoskeletal: Pulses present and equal in all extremities, no peripheral edema palpatory tenderness to the left shoulder Motor: no focal deficits noted Neurological: CN II-XII grossly intact, no focal motor or sensory deficits noted Skin: Intact with no visualized rashes Psych: Normal affect and mood Course Vital Signs 08/25/23 08/25/23 02:55 04:48 Pulse Rate 58 L 61 Respiratory 18 18 Rate Blood Pressure 126/62 136/64 O2 Sat by Pulse 95 97 Oximetry EKG Findings - EKG Comments: EKG Findings:: My EKG interpretation: Ventricular rate 61, sinus rhythm,. 179, cures 97, QTc 427. No DC prolongation, no QTC prolongation, no ST or T-wave changes noted. EKG compared to August 18, 2023 showing no changes. Overall, this EKG is unremarkable Medical Decision Making - Medical Decision Making Was pt. sent in by a medical professional or institution (, [place], [facility], urgent care, hospital, or jail...) When possible be specific @ -No Did you speak to anyone other than the patient for history (EMS, parent, family, police, friend...)? What history was obtained from this source @ -History from EMS as described above Did you review nursing and triage notes (agree or disagree)? Why? @ -I reviewed and agree with nursing and triage notes Were old charts reviewed (outside hosp., previous admission, EMS record, old EKG, old radiological studies, urgent care reports/EKG's, jail records)? Report findings @ -No old charts were reviewed Differential Diagnosis (chest pain, altered mental status, abdominal pain women, abdominal pain men, vaginal bleeding, musculoskeletal, weakness, fever, dyspnea, syncope, headache, dizziness, GI bleed, back pain, seizure, CVA, palpatations, mental health)? @ -Differential Chest Pain: Stable Angina, Unstable Angina, STEMI, NSTEMI Aortic Dissection, Pneumothorax, Musculoskeletal, Esophageal Spasm GERD, Cholecystitis, Pancreatitis, Zoster, this is not meant to be an all-inclusive list. EKG interpreted by me (3pts min.). @ -See above X-rays interpreted by me (1pt min.). @ -Chest x-ray shows some mild congestive heart failure. shoulder x-ray shows no acute processes. CT interpreted by me (1pt min.). @ -None done U/S interpreted by me (1pt. min.). @ -None done What testing was considered but not performed or refused? (CT, X-rays, U/S, labs)? Why? @ -None What meds were considered but not given or refused? Why? @ -None Was smoking cessation discussed for >3mins.? @ -No Were there social determinants of health that impacted care today? How? (Homelessness, low income, unemployed, alcoholism, drug addiction, transportation, low edu. Level, literacy, decrease access to med. care, half-way, rehab)? @ -No Was there de-escalation of care discussed even if they declined (Discuss DNR or withdrawal of care, Hospice)? DNR status @ -No What co-morbidities impacted this encounter? (DM, HTN, Smoking, COPD, CAD, Cancer, CVA, ARF, Chemo, Hep., AIDS, mental health diagnosis, sleep apnea, m orbid obesity)? @ -None Was patient admitted / discharged? Hospital course, mention meds given and route, prescriptions, significant lab abnormalities, going to OR and other pertinent info. @ -87-year-old male presents to the ER for shoulder pain. EMS did report that he was having some chest pain that was concerning for ACS. After his cardiology appointment. Vital signs upon arrival are within acceptable limits. EKG is baseline. Laboratory evaluation shows leukocytosis of 16.2. Patient has baseline elevated white blood cell count. Coag panel is negative. Metabolic panel shows sodium 130. Troponin 2.260. Patient's baseline is elevated as of last month. Patient will be admitted with consultation cardiology. Did you discuss the management of the patient with other professionals ( professionals i.e. , [place], [facility], lab, RT, psych nurse, social media marketer, international freight forwarder, teacher, mortgage loan officer, pillowcase cutter)? Give summary @ -Case discussed with Dr. Peters for hospital admission Was critical care preformed (if so, how long)? @ -No Undiagnosed new problem with uncertain prognosis? @ -No Drug Therapy requiring intensive monitoring for toxicity (Heparin, Nitro, Insulin, Cardizem)? @ -No Were any procedures done? @ -No Diagnosis/symptom? Acute, or Chronic, or Acute on Chronic? Uncomplicated (without systemic symptoms) or Complicated (systemic symptoms)? @ -Chest pain, shoulder pain Side effects of treatment? @ -No Exacerbation, Progression, or Severe Exacerbation? @ -No Poses a threat to life or bodily function? How? (Chest pain, [place], [place], pneumonia, PE, COPD, DKA, ARF, appy, cholecystitis, CVA, Diverticulitis, Homicidal, Suicidal, threat to staff... and all critical care pts) @ -yes - Lab Data Result diagrams: 08/25/23 03:00 08/25/23 03:00 Lab Results 08/25/23 08/25/23 08/25/23 Range/Units 03:00 03:00 03:00 WBC 16.2 H (3.8-10.6) k/uL RBC 3.17 L (4.30-5.90) m/uL Hgb 9.3 L (13.0-17.5) gm/dL Hct 29.4 L (39.0-53.0) % MCV 92.9 (80.0-100.0) fL MCH 29.4 (25.0-35.0) pg MCHC 31.7 (31.0-37.0) g/dL RDW 17.1 H (11.5-15.5) % Plt Count 179 (150-450) k/uL MPV 8.7 Neutrophils % 86 % Lymphocytes % 8 % Monocytes % 4 % Eosinophils % 1 % Basophils % 0 % Neutrophils # 13.9 H (1.3-7.7) k/uL Lymphocytes # 1.3 (1.0-4.8) k/uL Monocytes # 0.7 (0-1.0) k/uL Eosinophils # 0.1 (0-0.7) k/uL Basophils # 0.0 (0-0.2) k/uL Hypochromasia Slight Anisocytosis Slight PT 12.2 (10.0-12.5) sec INR 1.1 (<1.2) APTT 32.0 H (22.0-30.0) sec Sodium 130 L (137-145) mmol/L Potassium 4.5 (3.5-5.1) mmol/L Chloride 104 (98-107) mmol/L Carbon Dioxide 22 (22-30) mmol/L Anion Gap 4 mmol/L BUN 29 H (9-20) mg/dL Creatinine 0.93 (0.66-1.25) mg/dL Est GFR (CKD-EPI)AfAm 84 (>60 ml/min/1.73 sqM) Est GFR (CKD-EPI)NonAf 73 (>60 ml/min/1.73 sqM) Glucose 137 H (74-99) mg/dL Calcium 7.9 L (8.4-10.2) mg/dL Magnesium 2.0 (1.6-2.3) mg/dL Total Bilirubin 0.7 (0.2-1.3) mg/dL AST 52 (17-59) U/L ALT 47 (4-49) U/L Alkaline Phosphatase 47 (38-126) U/L Troponin I (0.000-0.034) ng/mL Total Protein 5.5 L (6.3-8.2) g/dL Albumin 2.7 L (3.5-5.0) g/dL 08/25/23 Range/Units 03:00 WBC (3.8-10.6) k/uL RBC (4.30-5.90) m/uL Hgb (13.0-17.5) gm/dL Hct (39.0-53.0) % MCV (80.0-100.0) fL MCH (25.0-35.0) pg MCHC (31.0-37.0) g/dL RDW (11.5-15.5) % Plt Count (150-450) k/uL MPV Neutrophils % % Lymphocytes % % Monocytes % % Eosinophils % % Basophils % % Neutrophils # (1.3-7.7) k/uL Lymphocytes # (1.0-4.8) k/uL Monocytes # (0-1.0) k/uL Eosinophils # (0-0.7) k/uL Basophils # (0-0.2) k/uL Hypochromasia Anisocytosis PT (10.0-12.5) sec INR (<1.2) APTT (22.0-30.0) sec Sodium (137-145) mmol/L Potassium (3.5-5.1) mmol/L Chloride (98-107) mmol/L Carbon Dioxide (22-30) mmol/L Anion Gap mmol/L BUN (9-20) mg/dL Creatinine (0.66-1.25) mg/dL Est GFR (CKD-EPI)AfAm (>60 ml/min/1.73 sqM) Est GFR (CKD-EPI)NonAf (>60 ml/min/1.73 sqM) Glucose (74-99) mg/dL Calcium (8.4-10.2) mg/dL Magnesium (1.6-2.3) mg/dL Total Bilirubin (0.2-1.3) mg/dL AST (17-59) U/L ALT (4-49) U/L Alkaline Phosphatase (38-126) U/L Troponin I 2.260 H* (0.000-0.034) ng/mL Total Protein (6.3-8.2) g/dL Albumin (3.5-5.0) g/dL Disposition Clinical Impression: Chest pain Disposition: ADMITTED IP TO THIS HOSP Condition: Fair Referrals: Rigo Peters MD [Primary Care Provider] - 1-2 days Decision Time: 05:22
[2023-08-25 03:31] LABS: ALT 47 U/L (4-49); AST 52 U/L (17-59); African American GFR (CKD) 84 (>60 ml/min/1.73 sqM); Albumin 2.7 g/dL (3.5-5.0); Alkaline Phosphatase 47 U/L (38-126); Anion Gap 4 mmol/L; Blood Urea Nitrogen 29 mg/dL (9-20); Calcium 7.9 mg/dL (8.4-10.2); Carbon Dioxide 22 mmol/L (22-30); Chloride 104 mmol/L (98-107); Glucose 137 mg/dL (74-99); Non-African American GFR(CKD) 73 (>60 ml/min/1.73 sqM); Sodium 130 mmol/L (137-145); Total Bilirubin 0.7 mg/dL (0.2-1.3); Total Protein 5.5 g/dL (6.3-8.2)
[2023-08-25 03:37] LABS: Anisocytosis Slight; Basophils % (A) 0 %; Eosinophils # (A) 0.1 k/uL (0-0.7); Eosinophils % (A) 1 %; HCT 29.4 % (39.0-53.0); HGB 9.3 gm/dL (13.0-17.5); Hypochromasia Slight; Lymphocytes # (A) 1.3 k/uL (1.0-4.8); Lymphocytes % (A) 8 %; MCH 29.4 pg (25.0-35.0); MCHC 31.7 g/dL (31.0-37.0); MCV 92.9 fL (80.0-100.0); Mean Platelet Volume 8.7; Monocytes # (A) 0.7 k/uL (0-1.0); Monocytes % (A) 4 %; Neutrophils # (A) 13.9 k/uL (1.3-7.7); Neutrophils % (A) 86 %; Platelet Count 179 k/uL (150-450); RBC 3.17 m/uL (4.30-5.90); RDW 17.1 % (11.5-15.5); WBC 16.2 k/uL (3.8-10.6)
[2023-08-25 03:40] LABS: Potassium 4.5 mmol/L (3.5-5.1)
[2023-08-25 03:47] LABS: INR 1.1 (<1.2); Prothrombin Time 12.2 sec (10.0-12.5)
--- NOTE | 2023-08-25 04:38 | XR ---
EXAM: XR Chest, 2 Views CLINICAL HISTORY: ITS.REASON XR Reason: Chest Pain TECHNIQUE: Frontal and lateral views of the chest. COMPARISON: CXR August 16, 2023. FINDINGS: Lungs: Pulmonary vascular congestion and small effusions, concerning for congestive heart failure. No consolidation. Pleural space: Unremarkable. No pneumothorax. Heart: Cardiomegaly. CABG. Mediastinum: Unremarkable. Normal mediastinal contour. Bones/joints: Sternotomy wires. No acute fracture. IMPRESSION: Pulmonary vascular congestion and small effusions, concerning for congestive heart failure.
--- NOTE | 2023-08-25 04:39 | XR ---
EXAM: XR Left Shoulder Complete, 2 or More Views CLINICAL HISTORY: ITS.REASON XR Reason: shoulder pain TECHNIQUE: Two or more views of the left shoulder. COMPARISON: No relevant prior studies available. FINDINGS: Bones/joints: Diffuse osseous demineralization. No acute fracture or subluxation. Soft tissues: Unremarkable. IMPRESSION: No acute fracture or subluxation.
[2023-08-25] MEDS ORDERED: NITROGLYCERIN SL TABS 0.4 MG TAB SUBLINGUAL PRN (05:17)
[2023-08-25] MEDS: ASPIRIN 81 MG PO STA (05:43)
[2023-08-25] MEDS: OXYBUTYNIN XL 5 MG TAB.ER.24 PO SCH (08:46)
[2023-08-25] MEDS: ATORVASTATIN 40 MG TAB PO SCH (08:46)
[2023-08-25] MEDS: MORPHINE SULFATE 2 MG/ML SYRINGE IVP PRN (08:46)
[2023-08-25] MEDS: METOPROLOL TARTRATE 25 MG TAB PO SCH (08:46)
[2023-08-25] MEDS ORDERED: NON FORMULARY DRUG (Omega-3/Dha/Epa/Fish Oil [Fish Oil 500 Mg Softgel] 1 EACH Capsule) PO SCH (09:00)
[2023-08-25] MEDS ORDERED: NON FORMULARY DRUG (Prevagen 1 CAP) PO SCH (09:00)
[2023-08-25] MEDS: ISOSORBIDE MONONITRATE ER 15 MG TAB PO SCH (09:15)
[2023-08-25] MEDS: NAPROXEN 250 MG TAB PO STA (09:16)
--- NOTE | 2023-08-25 11:39 | P.CNOR ---
History of Present Illness - HPI Consult date: 08/25/23 History of present illness: This is an 87-year-old male who presented to the emergency room for left shoulder pain. Patient states that he was admitted to the hospital last week for cardiac issues and hematuria and is scheduled to have a coronary artery stent on 08/30/2023. Patient also admits to a history of bladder cancer and states that he was taken off his blood thinners due to blood in the urine. Orthopedics is consulted for evaluation of left shoulder pain. Patient states that the pain comes and goes and he is unable to move the left arm due to pain. Patient states that there are periods of time when his pain subsides and he is able to move the left arm. Patient denies any injury or previous issues with the shoulder. Patient denies any numbness, weakness or tingling. Patient does admit to radiation of the pain down the left arm. Patient was evaluated by cardiology this morning. Troponins are elevated. Patient's past medical history significant for CABG with stenting, atrial fibrillation, coronary artery disease, GERD, hyperlipidemia, hypertension, osteoarthritis, pneumonia, history of prostate cancer and history of aortic stenosis. Review of Systems See HPI. Past Medical History Past Medical History: Atrial Fibrillation, Coronary Artery Disease (CAD), Cancer, Chest Pain / Angina, GERD/Reflux, Hyperlipidemia, Hypertension, Osteoarthritis (OA), Pneumonia, Prostate Disorder Additional Past Medical History / Comment(s): prostate CA-radiation (2006) , self caths since radiation tx to prostate, aortic stenosis., See Cardiology H & P. History of Any Multi-Drug Resistant Organisms: None Reported Past Surgical History: Coronary Bypass/CABG, Heart Catheterization With Stent, Prostate Surgery Additional Past Surgical History / Comment(s): Angioplasty, heart cath (Nov 2021), Heart caths with stents, 2011, 2016 Past Anesthesia/Blood Transfusion Reactions: No Reported Reaction, Motion Sickness Date of Last Stent Placement:: 2016 Past Psychological History: Anxiety, Depression Additional Psychological History / Comment(s): states some anxiety and depression at times. Smoking Status: Former smoker Past Alcohol Use History: Occasional Additional Past Alcohol Use History / Comment(s): quit smoking 1964., hx of 1ppd. Past Drug Use History: None Reported - Past Family History Brother(s) Family Medical History: Cancer, Coronary Artery Disease (CAD), Prostate Disorder Additional Family Medical History / Comment(s): Patient has a total of 4 brothers all with history of coronary artery disease. Sister(s) Family Medical History: Cancer, Coronary Artery Disease (CAD) Additional Family Medical History / Comment(s): . Father Family Medical History: Congestive Heart Failure (CHF), Coronary Artery Disease (CAD), Respiratory Disorder Additional Family Medical History / Comment(s): Father at age 76 from coronary artery disease with history of emphysema. Mother Family Medical History: Congestive Heart Failure (CHF), Myocardial Infarction ([place]) Additional Family Medical History / Comment(s): Mother at age 50 from a myocardial infarction. Daughter(s) Family Medical History: No Reported History Additional Family Medical History / Comment(s): . Medications and Allergies Home Medications Medication Instructions Recorded Confirmed Type Ubidecarenone [Co Q-10] 200 mg PO DAILY 07/26/16 08/25/23 History Pantoprazole [Protonix] 40 mg PO HS 09/06/17 08/25/23 History [place]-3/Dha/Epa/Fish Oil [Fish Oil 1 cap PO DAILY 11/16/18 08/25/23 History 500 mg Softgel] Acetaminophen Tab [Tylenol] 500 mg PO Q6HR PRN 11/12/22 08/25/23 History Ipratropium-Albuterol Nebulize 3 ml INHALATION RT-BID 11/12/22 08/25/23 History [Duoneb 0.5 mg-3 mg/3 ml Soln] Aspirin 81 mg PO DAILY #7 tab 11/18/22 08/25/23 Rx ALPRAZolam [Xanax] 0.25 mg PO HS 08/17/23 08/25/23 History Bwjs-Pkrb-Xwow 1 tab PO HS 08/17/23 08/25/23 History Prevagen 1 cap PO DAILY 08/17/23 08/25/23 History Rosuvastatin Calcium [Crestor] 5 mg PO Q48H 08/17/23 08/25/23 History Atorvastatin [Lipitor] 40 mg PO DAILY 90 Days #90 tab 08/24/23 08/25/23 Rx Isosorbide Mononitrate ER [Imdur] 15 mg PO DAILY 90 Days #90 tab 08/24/23 08/25/23 Rx Metoprolol Tartrate [Lopressor] 25 mg PO BID 90 Days #180 tab 08/24/23 08/25/23 Rx Nitroglycerin Sl Tabs [Nitrostat] 0.4 mg SUBLINGUAL Q5M PRN 90 Days 08/24/23 08/25/23 Rx #1000 tab Oxybutynin Xl [Ditropan XL] 5 mg PO DAILY 30 Days #30 tab 08/24/23 08/25/23 Rx Allergies Allergy/AdvReac Type Severity Reaction Status Date / Time Penicillins Allergy Rash/Hives Verified 08/25/23 11:05 Sulfa (Sulfonamide Allergy Rash/Hives Verified 08/25/23 11:05 Antibiotics) tetanus and diphtheria Allergy Rash/Hives/ Verified 08/25/23 11:05 toxoids Blisters Physical Examination On exam patient is resting comfortably in bed in no acute distress. Patient is alert and oriented 3. Patient has generalized tenderness to palpation of the left shoulder. Patient is unable to move the left arm secondary to pain. There is no erythema, warmth or swelling. Skin is intact. Patient has good range of motion of the left hand. The left upper extremity is warm and well-perfused. Patient moves his head and neck without pain or difficulty. Sensation intact. Neurovascular status and circulatory status are intact. Results X-rays of the left shoulder are reviewed revealing mild arthritic changes. - Labs Labs: Abnormal Lab Results - Last 24 Hours (Table) 08/25/23 08/25/23 08/25/23 Range/Units 03:00 03:00 03:00 WBC 16.2 H (3.8-10.6) k/uL RBC 3.17 L (4.30-5.90) m/uL Hgb 9.3 L (13.0-17.5) gm/dL Hct 29.4 L (39.0-53.0) % RDW 17.1 H (11.5-15.5) % Neutrophils # 13.9 H (1.3-7.7) k/uL APTT 32.0 H (22.0-30.0) sec Sodium 130 L (137-145) mmol/L BUN 29 H (9-20) mg/dL Glucose 137 H (74-99) mg/dL Calcium 7.9 L (8.4-10.2) mg/dL Troponin I (0.000-0.034) ng/mL Total Protein 5.5 L (6.3-8.2) g/dL Albumin 2.7 L (3.5-5.0) g/dL 08/25/23 Range/Units 03:00 WBC (3.8-10.6) k/uL RBC (4.30-5.90) m/uL Hgb (13.0-17.5) gm/dL Hct (39.0-53.0) % RDW (11.5-15.5) % Neutrophils # (1.3-7.7) k/uL APTT (22.0-30.0) sec Sodium (137-145) mmol/L BUN (9-20) mg/dL Glucose (74-99) mg/dL Calcium (8.4-10.2) mg/dL Troponin I 2.260 H* (0.000-0.034) ng/mL Total Protein (6.3-8.2) g/dL Albumin (3.5-5.0) g/dL H & H 08/25/23 Range/Units 03:00 Hgb 9.3 L (13.0-17.5) gm/dL Hct 29.4 L (39.0-53.0) % Coagulation 08/25/23 Range/Units 03:00 INR 1.1 (<1.2) Result Diagrams: 08/25/23 03:00 08/25/23 03:00 Assessment and Plan (1) Left shoulder pain Current Visit: Yes Status: Acute Code(s): M25.512 - PAIN IN LEFT SHOULDER SNOMED Code(s): 8939850115 (2) Chest pain Current Visit: Yes Status: Acute Code(s): R07.9 - CHEST PAIN, UNSPECIFIED SNOMED Code(s): 59199536 (3) CAD (coronary artery disease) Current Visit: No Status: Acute Priority: High Code(s): I25.10 - ATHSCL HEART DISEASE OF [place] CORONARY ARTERY W/O ANG PCTRS SNOMED Code(s): 25545115 Plan: 1. Recommend pain management per internal medicine and cardiology. Patient has morphine and Naproxen ordered. 2. X-rays are reviewed revealing mild arthritic changes. Recommend conservative management at this time. If his symptoms persist we could re-evaluate after his cardiac procedure or follow up as an outpatient.
[2023-08-25] MEDS: ACETAMINOPHEN TAB 500 MG TAB PO PRN (11:56)
--- NOTE | 2023-08-25 13:05 | P.CRDCN ---
History of Present Illness Consult date: 08/25/23 Consult reason: chest pain History of present illness: This is an 87-year-old male patient of Dr. FLORI Rhoades with past medical history of prostate cancer, urinary retention, coronary artery disease with previous CABG and PCI, hypertension, hyperlipidemia, aortic stenosis. We have been asked to evaluate the patient for chest pain. Patient was hospitalized 08/15 and discharged yesterday. He initially presented with hematuria and underwent cyst oscopy and eventually hematuria had resolved. Cardiology was following for elevated troponins type II [place] s/p cardiac catheterization with Dr. FLORI Rhoades which found restenotic lesion in the circumflex that was recently stented in October. Left main is patent. LAD is totally occluded but PEARSON was not injected, patent by previous angiogram from October. Circumflex has restenotic lesion. RCA is unchanged at 55% mid lesion and previous negative IFR. Plan was for discharge of the patient and come back next week for PCI of the circumflex. Patient was maintained on aspirin atorvastatin Lopressor. Plavix was on hold due to hematuria. Patient's hematuria did clear during her his hospitalization. We have been asked to evaluate the patient for chest pain. Patient's states that he got home and he has excruciating pain in the left shoulder with tenderness to touch and the pain was radiating down into his fingers. It was a pulsating sharp stabbing type pain. Patient was unable to lift his left arm. He has swelling to the left shoulder with warmth. Patient denies chest pain. EKG: Sinus rhythm. Chest x-ray: Pulmonary vascular congestion and small effusions concerning for heart failure Laboratory studies: WBC 16.2, hemoglobin 9.3. Sodium 130, potassium 4.5, creatinine 0.93. Troponin 2.26. Home cardiac medications: Aspirin 81 mg daily, atorvastatin 40 mg daily, Imdur 15 mg daily, Lopressor 25 mg twice daily, Nitrostat as needed, omega-3, Crestor 5 mg every 48 hours. Echocardiogram performed 08/18/2023 reveals EF 55 to 60%, mild concentric left nuclear hypertrophy, mild to moderate MR, moderate LAE dilatation. Severe aortic stenosis with mean gradient of 46 mmHg and moderate eccentric AR. Review Of Systems: At the time of my exam: CONSTITUTIONAL: Denies fever or chills. HEENT: Denies blurred vision, vision changes, or eye pain. Denies hemoptysis CARDIOVASCULAR: Denies chest pain. Denies orthopnea. Denies PND. Denies palpitations RESPIRATORY: Denies shortness of breath. GASTROINTESTINAL: Denies abdominal pain. Denies nausea or vomiting. HEMATOLOGIC: Denies bleeding disorders. GENITOURINARY: Denies any blood in urine. SKIN: Denies puritis. Denies rash. Physical examination: Gen: This is an 87-year-old male in no acute distress VS: reviewed HEENT: Head is atraumatic, normocephalic. Pupils equal, round. Sclerae is anicteric. NECK: Supple. No JVD. LUNGS: Clear to auscultation. No wheezes or rhonchi. No intercostal retractions. HEART: Regular rate and rhythm. Systolic murmur. ABDOMEN: Soft No tenderness. EXTREMITIES: No pedal edema. No calf tenderness. NEUROLOGICAL: Patient is awake, alert and oriented x3. Assessment: Left shoulder pain, osteoarthritis No chest pain Recent type II [place] Coronary artery disease with previous CABG and PCI Severe Hypertension Hyperlipidemia Mildly elevated lambda and kappa light chains not typical of cardiac amyloid Urinary retention History of prostate cancer with radiation and recent hospitalization for gross hematuria, resolved Plan: Resume patient's home cardiac medications Cancel additional troponins No need for echocardiogram as this was completed in July 23 dose of naproxen ordered Orthopedic consult ordered No further cardiac workup at this time. Patient is scheduled to return on 08/29 for PCI under the care of Dr. FLORI Rhoades. Consider moving patient to [facility] floor. Thank you kindly for this consultation. Nurse practitioner note has been reviewed, I agree with documented findings and plan of care. Patient was seen and examined. Past Medical History Past Medical History: Atrial Fibrillation, Coronary Artery Disease (CAD), Cancer, Chest Pain / Angina, GERD/Reflux, Hyperlipidemia, Hypertension, Osteoarthritis (OA), Pneumonia, Prostate Disorder Additional Past Medical History / Comment(s): prostate CA-radiation (2006) , self caths since radiation tx to prostate, aortic stenosis., See Cardiology H & P. History of Any Multi-Drug Resistant Organisms: None Reported Past Surgical History: Coronary Bypass/CABG, Heart Catheterization With Stent, Prostate Surgery Additional Past Surgical History / Comment(s): Angioplasty, heart cath (Dec 11), Heart caths with stents, 2011, 2016 Past Anesthesia/Blood Transfusion Reactions: No Reported Reaction, Motion Sickness Date of Last Stent Placement:: 2016 Past Psychological History: Anxiety, Depression Additional Psychological History / Comment(s): states some anxiety and depression at times. Smoking Status: Former smoker Past Alcohol Use History: Occasional Additional Past Alcohol Use History / Comment(s): quit smoking 1964., hx of 1ppd. Past Drug Use History: None Reported - Past Family History Brother(s) Family Medical History: Cancer, Coronary Artery Disease (CAD), Prostate Disorder Additional Family Medical History / Comment(s): Patient has a total of 4 brothers all with history of coronary artery disease. Sister(s) Family Medical History: Cancer, Coronary Artery Disease (CAD) Additional Family Medical History / Comment(s): . Father Family Medical History: Congestive Heart Failure (CHF), Coronary Artery Disease (CAD), Respiratory Disorder Additional Family Medical History / Comment(s): Father at age 76 from coronary artery disease with history of emphysema. Mother Family Medical History: Congestive Heart Failure (CHF), Myocardial Infarction ([place]) Additional Family Medical History / Comment(s): Mother at age 50 from a myocardial infarction. Daughter(s) Family Medical History: No Reported History Additional Family Medical History / Comment(s): . Medications and Allergies Home Medications Medication Instructions Recorded Confirmed Type Ubidecarenone [Co Q-10] 200 mg PO DAILY 07/26/16 08/25/23 History Pantoprazole [Protonix] 40 mg PO HS 09/06/17 08/25/23 History [place]-3/Dha/Epa/Fish Oil [Fish Oil 1 cap PO DAILY 11/16/18 08/25/23 History 500 mg Softgel] Acetaminophen Tab [Tylenol] 500 mg PO Q6HR PRN 11/12/22 08/25/23 History Ipratropium-Albuterol Nebulize 3 ml INHALATION RT-BID 11/12/22 08/25/23 History [Duoneb 0.5 mg-3 mg/3 ml Soln] Aspirin 81 mg PO DAILY #7 tab 11/18/22 08/25/23 Rx ALPRAZolam [Xanax] 0.25 mg PO HS 08/17/23 08/25/23 History Grsp-Isjd-Clgj 1 tab PO HS 08/17/23 08/25/23 History Prevagen 1 cap PO DAILY 08/17/23 08/25/23 History Rosuvastatin Calcium [Crestor] 5 mg PO Q48H 08/17/23 08/25/23 History Atorvastatin [Lipitor] 40 mg PO DAILY 90 Days #90 tab 08/24/23 08/25/23 Rx Isosorbide Mononitrate ER [Imdur] 15 mg PO DAILY 90 Days #90 tab 08/24/23 08/25/23 Rx Metoprolol Tartrate [Lopressor] 25 mg PO BID 90 Days #180 tab 08/24/23 08/25/23 Rx Nitroglycerin Sl Tabs [Nitrostat] 0.4 mg SUBLINGUAL Q5M PRN 90 Days 08/24/23 08/25/23 Rx #1000 tab Oxybutynin Xl [Ditropan XL] 5 mg PO DAILY 30 Days #30 tab 08/24/23 08/25/23 Rx Allergies Allergy/AdvReac Type Severity Reaction Status Date / Time Penicillins Allergy Rash/Hives Verified 08/25/23 11:05 Sulfa (Sulfonamide Allergy Rash/Hives Verified 08/25/23 11:05 Antibiotics) tetanus and diphtheria Allergy Rash/Hives/ Verified 08/25/23 11:05 toxoids Blisters Physical Exam Vitals: Vital Signs Temp Pulse Pulse Resp BP BP Pulse Ox 08/25/23 08:00 97.9 F 77 18 119/59 98 08/25/23 05:45 64 18 143/70 97 08/25/23 05:23 97.6 F 65 18 152/68 99 08/25/23 04:48 61 18 136/64 97 08/25/23 02:55 58 L 18 126/62 95 Intake and Output 08/24/23 08/25/23 08/25/23 22:59 06:59 14:59 Intake Total 360 Balance 360 Intake: Oral 360 Other: Weight 87.997 kg Results 08/25/23 03:00 08/25/23 03:00 Cardiac Enzymes 08/25/23 08/25/23 Range/Units 03:00 03:00 AST 52 (17-59) U/L Troponin I 2.260 H* (0.000-0.034) ng/mL Coagulation 08/25/23 Range/Units 03:00 PT 12.2 (10.0-12.5) sec APTT 32.0 H (22.0-30.0) sec CBC 08/25/23 Range/Units 03:00 WBC 16.2 H (3.8-10.6) k/uL RBC 3.17 L (4.30-5.90) m/uL Hgb 9.3 L (13.0-17.5) gm/dL Hct 29.4 L (39.0-53.0) % Plt Count 179 (150-450) k/uL Comprehensive Metabolic Panel 08/25/23 Range/Units 03:00 Sodium 130 L (137-145) mmol/L Potassium 4.5 (3.5-5.1) mmol/L Chloride 104 (98-107) mmol/L Carbon Dioxide 22 (22-30) mmol/L BUN 29 H (9-20) mg/dL Creatinine 0.93 (0.66-1.25) mg/dL Glucose 137 H (74-99) mg/dL Calcium 7.9 L (8.4-10.2) mg/dL AST 52 (17-59) U/L ALT 47 (4-49) U/L Alkaline Phosphatase 47 (38-126) U/L Total Protein 5.5 L (6.3-8.2) g/dL Albumin 2.7 L (3.5-5.0) g/dL Current Medications Generic Name Dose Route Start Last Admin Trade Name Freq PRN Reason Stop Dose Admin Acetaminophen 500 mg 08/25/23 08:36 Acetaminophen Tab 500 Mg Tab PO Q6HR PRN Pain Albuterol/Ipratropium 3 ml 08/25/23 20:00 Ipratropium-Albuterol 3 Ml Neb INHALATION RT-BID FRANCISCO Alprazolam 0.25 mg 08/25/23 21:00 Alprazolam 0.25 Mg Tab PO HS FRANCISCO Aspirin 325 mg 08/26/23 09:00 Aspirin 325 Mg Tab PO DAILY FRANCISCO Atorvastatin Calcium 40 mg 08/25/23 09:00 08/25/23 08:46 Atorvastatin 40 Mg Tab PO 40 mg DAILY FRANCISCO Administration Isosorbide Mononitrate 15 mg 08/25/23 09:00 Isosorbide Mononitrate Er 15 Mg Tab PO DAILY [facility] Metoprolol Tartrate 25 mg 08/25/23 09:00 08/25/23 08:46 Metoprolol Tartrate 25 Mg Tab PO 25 mg BID FRANCISCO Administration Morphine Sulfate 2 mg 08/25/23 08:35 08/25/23 08:46 Morphine Sulfate 2 Mg/Ml Syringe IVP 2 mg Q4HR PRN Administration Pain/Discomfort Nitroglycerin 0.4 mg 08/25/23 05:17 Nitroglycerin Sl Tabs 0.4 Mg Tab SUBLINGUAL Q5M PRN Chest Pain Oxybutynin Chloride 5 mg 08/25/23 09:00 08/25/23 08:46 Oxybutynin Xl 5 Mg Tab.Er.24 PO 5 mg DAILY FRANCISCO Administration Pantoprazole Sodium 40 mg 08/25/23 21:00 Pantoprazole 40 Mg Tablet PO HS FRANCISCO Intake and Output 08/24/23 08/25/23 08/25/23 22:59 06:59 14:59 Intake Total 360 Balance 360 Intake: Oral 360 Other: Weight 87.997 kg 08/25/23 03:00 08/25/23 03:00
--- NOTE | 2023-08-25 16:11 | CT ---
EXAMINATION TYPE: CT chest wo con CT DLP: 570.3 mGycm, Automated exposure control for dose reduction was used. DATE OF EXAM: 08/25/2023 3:35 PM COMPARISON: None CLINICAL INDICATION:Male, 87 years old with history of cap; PHH, Chest pain, weakness, syncope TECHNIQUE: Multiple axial images were obtained through the chest. Sagittal and coronal reformats were created for review. Contrast used: mL of (None if empty) Oral contrast used: (None if empty) FINDINGS: LUNGS/ PLEURA: Azygous fissure in the right upper lung. There is mild paraseptal emphysema changes. T race bilateral pleural effusions. Mild intralobular septal thickening. No evidence for pneumothorax o r airspace consideration. AIRWAY: Patent and unremarkable. HEART: The heart is mildly enlarged for size. There is severe coronary artery and aortic valve calcul ations. MEDIASTINUM: No gross evidence of adenopathy. VASCULATURE: No aortic aneurysm. MUSCULOSKELETAL: No acute osseous abnormalities, sternotomy wires are present. SOFT TISSUES/LYMPH NODES: Unremarkable. LOWER NECK: No significant findings. UPPER ABDOMEN: No significant findings. IMPRESSION: 1. Cardiomegaly with bilateral pleural effusions and mild congestive changes. Correlate with serum B [employer]. 2. Severe coronary artery palpitations. 3. Severe aortic valve calcifications. 4. No airspace consolidation or pneumothorax.
[2023-08-25] MEDS: NAPROXEN 250 MG TAB PO SCH (20:47)
[2023-08-25] MEDS: PANTOPRAZOLE 40 MG TABLET PO SCH (20:48)
[2023-08-25] MEDS: ALPRAZolam 0.25 MG TAB PO SCH (20:48)
[2023-08-25] MEDS: IPRATROPIUM-ALBUTEROL 3 ML NEB INHALATION SCH (21:49)
[2023-08-26] MEDS: ASPIRIN 81 MG PO SCH ×2 (08:28→12:36)
[2023-08-26] MEDS: LORazepam 2 MG/ML INJ IV PRN (08:28)
[2023-08-26] MEDS ORDERED: ASPIRIN 325 MG TAB PO SCH (09:00)
[2023-08-26] MEDS ORDERED: NITROGLYCERIN SL TABS 0.4 MG TAB SUBLINGUAL PRN (10:55)
--- NOTE | 2023-08-26 11:40 | CT ---
EXAMINATION TYPE: CT angio chest CT DLP: 507.7 mGycm, Automated exposure control for dose reduction was used. DATE OF EXAM: 08/26/2023 11:28 AM COMPARISON: 08/25/2023 CLINICAL INDICATION:Male, 87 years old with history of high d-dimer; pain, elevated d dimer. TECHNIQUE/CONTRAST: CTA scan of the thorax is performed with IV Contrast, patient injected with 100ml mL of Isovue 370, M IP images are created and reviewed these are created on a separate workstation.. FINDINGS: Pulmonary Artery: There is no evidence for a filling defect within the pulmonary vasculature to sugge st acute pulmonary embolism. The pulmonary artery is of normal size. Lungs/Pleura: Intralobular septal thickening. Trace to small bilateral pleural effusions. No evidence of focal consolidation or pneumothorax. Azygous fissure noted Airway: Large airways are patent. Heart: The heart is enlarged for size. Moderate to severe atherosclerosis of the arterial vasculature . Moderate to severe aortic valve calcifications. Vasculature: No evidence of aortic aneurysm. Mediastinum: No gross evidence of adenopathy. Musculoskeletal: No acute osseous abnormalities Soft Tissues/lymph nodes: Unremarkable. Lower neck: No significant findings. Upper Abdomen: Distended gastric lumen IMPRESSION: 1. No evidence of pulmonary embolism. 2. Congestive heart failure changes with cardiomegaly and trace to small bilateral pleural effusions and pulmonary vascular congestion. 3. Moderate to severe atherosclerosis of the arterial vasculature. 4. Moderate to severe aortic valve calcifications.
--- NOTE | 2023-08-26 12:00 | PN ---
PROGRESS NOTE SUBJECTIVE: Elevated D-dimer. We are going to do CT of the chest, at which time we make sure he does not have pulmonary embolism. He will be sent home with oral antibiotics. Cardiology and Surgery cleared him for discharge. OBJECTIVE: VITAL SIGNS: Temperature 98.4, O2 saturation 92% on 2 L, respiratory rate 16, pulse 80- 85. CARDIOVASCULAR: S1, S2. LUNGS: Transmitted upper sounds. GI: Soft. HEMATOLOGY: Negative Homans. PSYCH: Fair mood and affect. : [place] catheter, no blood. PLAN: Continue current treatment. Possibly discharge home on oral antibiotics. He is doing well. There is no blood clot in chest or in the legs. Prognosis is guarded. MMODL / IJN: [id number] /
[2023-08-26 12:15] VITALS: TEMP 98
[2023-08-26] MEDS: LEVOFLOXACIN 500MG-D5W PMX 500 MG in DEXTROSE/WATER 1 100ML.BAG IVPB SCH (12:31)
[2023-08-26 12:55] LABS: Chol/HDL Ratio 1.49 Ratio; LDL Cholesterol,Calculated 12.9 mg/dL (0.0-131.0)
--- NOTE | 2023-08-26 13:05 | P.PN ---
Subjective Progress Note Date: 08/26/23 Consult reason: chest pain History of present illness: This is an 87-year-old male patient of Dr. FLORI Rhoades with past medical history of prostate cancer, urinary retention, coronary artery disease with previous CABG and PCI, hypertension, hyperlipidemia, aortic stenosis. We have been asked to evaluate the patient for chest pain. Patient was hospitalized 08/15 and discharged yesterday. He initially presented with hematuria and underwent cystoscopy and eventually hematuria had resolved. Cardiology was following for elevated troponins type II RI s/p cardiac catheterization with Dr. FLORI Rhoades which found restenotic lesion in the circumflex that was recently stented in October. Left main is patent. LAD is totally occluded but PEARSON was not injec lester, patent by previous angiogram from October. Circumflex has restenotic lesion. RCA is unchanged at 55% mid lesion and previous negative IFR. Plan was for discharge of the patient and come back next week for PCI of the circumflex. Patient was maintained on aspirin atorvastatin Lopressor. Plavix was on hold due to hematuria. Patient's hematuria did clear during her his hospitalization. We have been asked to evaluate the patient for chest pain. Patient's states that he got home and he has excruciating pain in the left shoulder with tenderness to touch and the pain was radiating down into his fingers. It was a pulsating sharp stabbing type pain. Patient was unable to lift his left arm. He has swelling to the left shoulder with warmth. Patient denies chest pain. EKG: Sinus rhythm. Chest x-ray: Pulmonary vascular congestion and small effusions concerning for heart failure Laboratory studies: WBC 16.2, hemoglobin 9.3. Sodium 130, potassium 4.5, creatinine 0.93. Troponin 2.26. Home cardiac medications: Aspirin 81 mg daily, atorvastatin 40 mg daily, Imdur 15 mg daily, Lopressor 25 mg twice daily, Nitrostat as needed, omega-3, Crestor 5 mg every 48 hours. Echocardiogram performed 08/18/2023 reveals EF 55 to 60%, mild concentric left nuclear hypertrophy, mild to moderate MR, moderate LAE dilatation. Severe aortic stenosis with mean gradient of 46 mmHg and moderate eccentric AR. 7/4 Blood pressure 90/53, heart rate 99, pulse ox 95% on room air. Attending ordere d D-dimer yesterday afternoon which came back at 4.03. He had a CT of the chest done yesterday afternoon that revealed cardiomegaly with bilateral pleural effusions and mild congestion. Severe coronary artery and aortic valve calcifications. No airspace consolidation or pneumothorax. Subsequently, a CTA of the chest was obtained which revealed no evidence of pulmonary embolism. Congestive heart failure changes with cardiomegaly and trace small bilateral pleural effusions and pulmonary vascular congestion. Moderate to severe atherosclerosis of the arterial vasculature. Moderate to severe aortic valve calcification. Patient has been seen by orthopedics for right shoulder arthritis plan for conservative management. Patient is completely confused today. We noted that yesterday after he received a dose of morphine, patient had some brief confusion which seems to have worsened as he received multiple doses of morphine on top of that he also received Ativan and Xanax. Physical examination: Gen: This is an 87-year-old male in no acute distress VS: reviewed HEENT: Head is atraumatic, normocephalic. Pupils equal, round. Sclerae is anicteric. NECK: Supple. No JVD. LUNGS: Clear to auscultation. No wheezes or rhonchi. No intercostal retractions. HEART: Regular rate and rhythm. Systolic murmur. ABDOMEN: Soft No tenderness. EXTREMITIES: No pedal edema. No calf tenderness. NEUROLOGICAL: Patient is confused. Assessment: Left shoulder pain, osteoarthritis No chest pain Recent type II RI Coronary artery disease with previous CABG and PCI Severe Hypertension Hyperlipidemia Mildly elevated lambda and kappa light chains not typical of cardiac amyloid Urinary retention History of prostate cancer with radiation and recent hospitalization for gross hematuria, resolved Metabolic encephalopathy secondary to morphine, Ativan, Xanax Elevated D-dimer secondary to recent cardiac catheterization Plan: Continue patient's home cardiac medications No further cardiac workup at this time. Patient is scheduled to return on 08/29 for PCI under the care of Dr. FLORI Rhoades. Will recheck renal function to make sure the patient is able to undergo PCI for Wednesday. Discontinue morphine completely Recommend discontinuing Ativan and Xanax Nurse practitioner note has been reviewed, I agree with documented findings and plan of care. Patient was seen and examined. Objective - Vital Signs Vital signs: Vital Signs Temp 98.4 F 08/26/23 08:26 Pulse 99 08/26/23 08:26 Resp 16 08/26/23 08:26 BP 90/53 07/04/24 08:26 Pulse Ox 95 08/26/23 08:26 FiO2 Intake & Output 08/25/23 08/26/23 08/26/23 18:59 06:59 18:59 Intake Total 360 Output Total 800 500 Balance -440 -500 Intake: Oral 360 Output: Urine 800 500 Other: Voiding Method Indwelling Catheter Indwelling Catheter # Bowel Movements 0 - Labs CBC & Chem 7: 08/25/23 03:00 08/25/23 03:00 Labs: Abnormal Lab Results - Last 24 Hours (Table) 08/25/23 08/25/23 Range/Units 14:23 14:23 D-Dimer 4.03 H (<0.60) mg/L FEU Procalcitonin 0.22 H (0.02-0.09) ng/mL
[2023-08-26 13:56] LABS: Appearance,Urine Turbid (Clear); Bacteria,Urine Occasional /hpf; Bilirubin,Urine Negative (Negative); Blood,Urine Moderate (Negative); Color,Urine Yellow; Glucose,Urine (UA) Negative (Negative); Ketones,Urine Negative (Negative); Leukocyte Esterase,Urine Large (Negative); Mucus,Urine Rare /hpf; Nitrite,Urine Negative (Negative); Protein,Urine 3+ (Negative); RBC,Urine 58 /hpf (0-5); Specific Gravity,Urine 1.022 (1.001-1.035); Urobilinogen,Urine <2.0 mg/dL (<2.0); WBC,Urine >182 /hpf (0-5)
[2023-08-26 13:58] VITALS: BP 108/52; PULSE 109
[2023-08-26] MEDS: NALOXONE 0.4 MG/ML 1 ML VIAL ONE (14:00)
[2023-08-26] MEDS: FLUMAZENIL 0.1 MG/ML 5 ML VIAL IVP STA (14:00)
--- NOTE | 2023-08-26 14:02 | US ---
EXAMINATION TYPE: US venous doppler duplex LE DATE OF EXAM: 08/26/2023 11:36 AM COMPARISON: US 2012 CLINICAL INDICATION: Male, 87 years old with history of dvt; SIDE PERFORMED: Bilateral TECHNIQUE: The lower extremity deep venous system is examined utilizing real time linear array sonog ammy with graded compression, doppler sonography and color-flow sonography. VESSELS IMAGED: Common Femoral Vein Deep Femoral Vein Greater Saphenous Vein * Femoral Vein Popliteal Vein Small Saphenous Vein * Proximal Calf Veins (* superficial vessels) Right Leg: No evidence of DVT Limited visibility of left mid femoral vein. Portion of mid femoral vein not seen due to catheter. Left Leg: No evidence of DVT IMPRESSION: No evidence for deep vein thrombosis.
--- NOTE | 2023-08-26 14:23 | ED ---
Medical Decision Making - Medical Decision Making I was asked to evaluate this patient in CT scan adjacent to the emergency department. The patient is a DNR this was confirmed with family. The patient was noted to be pulseless with agonal respirations. Patient was placed on the monitor and was in asystole. Patient was pronounced at 1420. Primary care has been notified. - Lab Data Result diagrams: 08/25/23 03:00 08/25/23 03:00 Lab Results 08/25/23 08/25/23 08/25/23 Range/Units 03:00 03:00 03:00 WBC 16.2 H (3.8-10.6) k/uL RBC 3.17 L (4.30-5.90) m/uL Hgb 9.3 L (13.0-17.5) gm/dL Hct 29.4 L (39.0-53.0) % MCV 92.9 (80.0-100.0) fL MCH 29.4 (25.0-35.0) pg MCHC 31.7 (31.0-37.0) g/dL RDW 17.1 H (11.5-15.5) % Plt Count 179 (150-450) k/uL MPV 8.7 Neutrophils % 86 % Lymphocytes % 8 % Monocytes % 4 % Eosinophils % 1 % Basophils % 0 % Neutrophils # 13.9 H (1.3-7.7) k/uL Lymphocytes # 1.3 (1.0-4.8) k/uL Monocytes # 0.7 (0-1.0) k/uL Eosinophils # 0.1 (0-0.7) k/uL Basophils # 0.0 (0-0.2) k/uL Hypochromasia Slight Anisocytosis Slight PT 12.2 (10.0-12.5) sec INR 1.1 (<1.2) APTT 32.0 H (22.0-30.0) sec Sodium 130 L (137-145) mmol/L Potassium 4.5 (3.5-5.1) mmol/L Chloride 104 (98-107) mmol/L Carbon Dioxide 22 (22-30) mmol/L Anion Gap 4 mmol/L BUN 29 H (9-20) mg/dL Creatinine 0.93 (0.66-1.25) mg/dL Est GFR (CKD-EPI)AfAm 84 (>60 ml/min/1.73 sqM) Est GFR (CKD-EPI)NonAf 73 (>60 ml/min/1.73 sqM) Glucose 137 H (74-99) mg/dL Calcium 7.9 L (8.4-10.2) mg/dL Magnesium 2.0 (1.6-2.3) mg/dL Total Bilirubin 0.7 (0.2-1.3) mg/dL AST 52 (17-59) U/L ALT 47 (4-49) U/L Alkaline Phosphatase 47 (38-126) U/L Troponin I (0.000-0.034) ng/mL Total Protein 5.5 L (6.3-8.2) g/dL Albumin 2.7 L (3.5-5.0) g/dL /05/15 Range/Units 03:00 WBC (3.8-10.6) k/uL RBC (4.30-5.90) m/uL Hgb (13.0-17.5) gm/dL Hct (39.0-53.0) % MCV (80.0-100.0) fL MCH (25.0-35.0) pg MCHC (31.0-37.0) g/dL RDW (11.5-15.5) % Plt Count (150-450) k/uL MPV Neutrophils % % Lymphocytes % % Monocytes % % Eosinophils % % Basophils % % Neutrophils # (1.3-7.7) k/uL Lymphocytes # (1.0-4.8) k/uL Monocytes # (0-1.0) k/uL Eosinophils # (0-0.7) k/uL Basophils # (0-0.2) k/uL Hypochromasia Anisocytosis PT (10.0-12.5) sec INR (<1.2) APTT (22.0-30.0) sec Sodium (137-145) mmol/L Potassium (3.5-5.1) mmol/L Chloride (98-107) mmol/L Carbon Dioxide (22-30) mmol/L Anion Gap mmol/L BUN (9-20) mg/dL Creatinine (0.66-1.25) mg/dL Est GFR (CKD-EPI)AfAm (>60 ml/min/1.73 sqM) Est GFR (CKD-EPI)NonAf (>60 ml/min/1.73 sqM) Glucose (74-99) mg/dL Calcium (8.4-10.2) mg/dL Magnesium (1.6-2.3) mg/dL Total Bilirubin (0.2-1.3) mg/dL AST (17-59) U/L ALT (4-49) U/L Alkaline Phosphatase (38-126) U/L Troponin I 2.260 H* (0.000-0.034) ng/mL Total Protein (6.3-8.2) g/dL Albumin (3.5-5.0) g/dL Disposition Clinical Impression: Chest pain Disposition: Condition: Undetermined Is patient prescribed a controlled substance at d/c from ED?: No Time of Disposition: 14:20 Preliminary Cause of : Cardiopulmonary arrest
[2023-08-26] MEDS: methylPREDNISolone SOD SUCCI 125 MG/2 ML VIAL IV STA (14:56)
[2023-08-26 15:01] VITALS: RESP 14
--- NOTE | 2023-08-26 18:43 | HP ---
HISTORY AND PHYSICAL HISTORY OF PRESENT ILLNESS: He came to the EMS due to left shoulder pain. He possibly twisted his neck in his sleep. He has tenderness over cervical spine as well as his left shoulder, worse when he moves. He had chills when he went to bed, and he is not feeling right. He has elevated white count. Suspect he has pneumonia infection when he was here last week and did a CT of the chest. Cardiology had seen him and cleared him for discharge. HOME MEDICINES: 1. He is on Xanax 0.25 at night. 2. . 3. Crestor. 4. DuoNebs. 5. Protonix. 6. Coenzyme Q. ALLERGIES: Penicillin and sulfas. REVIEW OF SYSTEMS: 14-point review of system as mentioned above. PAST MEDICAL HISTORY: He had recent bladder ablation for bladder bleed. He has atrial fibrillation. He has coronary artery disease. He needs a stent placed in about a week or two. He is on no blood thinners until then for another week so we can do the heart catheterization and possibly a . PAST PSYCH HISTORY: Anxiety, depression, former smoker. FAMILY HISTORY: Brother with cancer, prostate disorder. Sister cancer, coronary artery disease. CHF in the father and CAD in the father. PHYSICAL EXAMINATION: VITAL SIGNS: Temp 96, blood pressure 126/62, pulse 50 to 61, respiratory rate 16 to 18, O2 sat 95% to 97%. GENERAL: Alert and oriented x3. HEENT: Head normocephalic, atraumatic. CARDIOVASCULAR: Regular rate and rhythm. PSYCH: Fair mood and affect. He looks weak and fatigued, possibly some dry skin turgor. He has a dry mouth. He has the chills. LABORATORY DATA: EKG showed no ST-T changes that are new. He has leukocytosis with 16.2 white count, hemoglobin is 9.3, which is BUN is 29, creatinine 0.93, although he is a little dehydrated. Sodium is 130, potassium 4.5. Put him on IV fluids, possibly some IV antibiotics, check him out for pneumonia. Atypical chest pain, shoulder pain. He has arthritis, cervical radiculopathy, coronary artery disease, rule out pneumonia. Please see further orders. MMODL / IJN: [id number] /
[2023-08-26] MEDS ORDERED: [UNRECOGNIZED DRUG - OTHER] PO SCH (21:00)
== END 2023-08-26 17:16 | disposition expired ==
LOC: EC 02:53 → 3SCARD 05:18
PROVIDERS: ADMIT Family Medicine; ATTEND Family Medicine
DX: R07.89 Other chest pain (principal); I46.9 Cardiac arrest, cause unspecified; I21.A1 Myocardial infarction type 2; I25.10 Atherosclerotic heart disease of native coronary artery without angina pectoris; I08.0 Rheumatic disorders of both mitral and aortic valves; I11.0 Hypertensive heart disease with heart failure; I50.9 Heart failure, unspecified; E78.5 Hyperlipidemia, unspecified; I48.91 Unspecified atrial fibrillation; M19.012 Primary osteoarthritis, left shoulder; K21.9 Gastro-esophageal reflux disease without esophagitis; D72.829 Elevated white blood cell count, unspecified; R33.9 Retention of urine, unspecified; G92.8 Other toxic encephalopathy; T40.2X5A Adverse effect of other opioids, initial encounter; T42.4X5A Adverse effect of benzodiazepines, initial encounter; M54.12 Radiculopathy, cervical region; Z66 Do not resuscitate; Z79.82 Long term (current) use of aspirin; Z79.899 Other long term (current) drug therapy; Z88.0 Allergy status to penicillin; Z88.2 Allergy status to sulfonamides; Z88.7 Allergy status to serum and vaccine; Z95.1 Presence of aortocoronary bypass graft; Z95.5 Presence of coronary angioplasty implant and graft; Z85.51 Personal history of malignant neoplasm of bladder; Z85.46 Personal history of malignant neoplasm of prostate; Z87.891 Personal history of nicotine dependence
CPT/HCPCS: 96376 ×2; 96365; 96375 ×2; 99285; 36415; 94640; 94760; 93005; 85379; 80061; 80053; 83735; 84484; 85025; 85610; 85730; 81001; 87086; 87077; 87186; 84145; 73030; 71046; 93970; 71250; 71275; G0378 ×2; J2060; J2310; J1956; J2270 ×2; Q9967